=== PATIENT | female | born 1995 | race African-American/Black ===

== ENCOUNTER 2016-11-17 10:56 | Emergency (ER) | payer MEDICAID ==
[~2016-11-17] VITALS: Ht 170.2 cm; Wt 82.0 kg
[~2016-11-17 10:56] MED LIST: LEVO500T15 PO; METF500T; OMEP20CA10 PO
[2016-11-17] MEDS ORDERED: SODIUM CHLORIDE 0.9% 1,000 ML IV ONE (11:25)
[2016-11-17] MEDS ORDERED: ONDANSETRON HCL 4MG/2ML VIAL IV ONE (11:30)
[2016-11-17] MEDS ORDERED: MORPHINE SULFATE 4 MG/ML CPJ (NOT FOR IM USE) IV STA (11:42)
[2016-11-17 11:49] LABS: BASOPHILS % 0.7 % (0.0-2.0); EOSINOPHILS % 0.4 % (0.0-5.0); HEMATOCRIT. 39.2 % (36.0-48.0); HEMOGLOBIN. 12.5 g/dL (12.0-16.0); LYMPHOCYTES % 13.5 % (20.0-50.0); MEAN CORPUSCULAR HEMOGLOBIN 26.3 pg (28.0-32.0); MEAN CORPUSCULAR HGB CONC 31.9 g/dL (31.0-37.0); MEAN CORPUSCULAR VOLUME 82.3 fL (81.0-99.0); MEAN PLATELET VOLUME 8.5 fl (7.4-10.4); MONOCYTES % 4.2 % (2.0-8.0); NEUTROPHILS % 81.2 % (40.0-76.0); PLATELET 368 x1000/uL (130-400); RED BLOOD CELL COUNT 4.77 mill/uL (4.2-5.4); RED CELL DISTRIBUTION WIDTH 14.4 % (11.6-14.6); WHITE BLOOD COUNT 10.4 x1000/uL (4.5-11.0)
[2016-11-17 11:56] LABS: INR 1.1; PROTHROMBIN TIME 11.8 sec
[2016-11-17 12:02] LABS: ALANINE AMINOTRANSFERASE 12 IU/L (13-61); ALBUMIN 3.9 g/dL (3.4-5.0); ANION GAP 16; CALCIUM 9.8 mg/dL (8.5-10.1); CARBON DIOXIDE 23 mEq/L (21-32); CHLORIDE 105 mEq/L (98-107); INDEX HEMOLYSI 1 (1-3); INDEX ICTERIC 1 (1-4); INDEX LIPEMIC 1 (1-3); LIPASE 93 IU/L (73-393); UREA NITROGEN BLOOD 11 mg/dL (7-21); eGFR > 60 mL/min (>60)
[2016-11-17] MEDS ORDERED: INSULIN REGULAR (HUMULIN R) 300UNITS/3ML IV NR (12:30)
[2016-11-17] MEDS ORDERED: METOCLOPRAMIDE HCL 10MG/2ML VIAL IV STA (12:46)
[2016-11-17] MEDS ORDERED: METFORMIN HCL 500MG TABLET PO ONE (14:30)
[2016-11-17] MEDS ORDERED: METFORMIN HCL 500MG TABLET PO NR (15:00)
[2016-11-17 16:15] VITALS: BP 135/80
== END 2016-11-17 19:40 | disposition home or self-care (01) ==
LOC: ER 11:41
DX: K52.9 Noninfective gastroenteritis and colitis, unspecified (principal); E11.9 Type 2 diabetes mellitus without complications; E11.43 Type 2 diabetes mellitus with diabetic autonomic (poly)neuropathy; K31.84 Gastroparesis
CPT/HCPCS: 36415; 80053; 82962; 83690; 85025; 85610; 93005; 96374; 96375; 99285; J1815; J2270; J2405; J2765; J7030; Z7610

== ENCOUNTER 2016-12-15 08:20 | Emergency (ER) | payer MEDICAID ==
[~2016-12-15] VITALS: Ht 170.2 cm; Wt 82.0 kg
[2016-12-15] MEDS ORDERED: ACETAMINOPHEN 325MG TABLET PO STA (09:40)
[2016-12-15] MEDS ORDERED: MAGNESIUM/ALUMINUM HYDROXIDE/SIMETHICONE 30ML UDC PO STA (09:40)
[2016-12-15] MEDS ORDERED: FAMOTIDINE 20MG TABLET PO ONE (09:45)
[2016-12-15 10:14] LABS: BASOPHILS % 0.9 % (0.0-2.0); EOSINOPHILS % 0.7 % (0.0-5.0); HEMATOCRIT. 36.9 % (36.0-48.0); HEMOGLOBIN. 12.2 g/dL (12.0-16.0); LYMPHOCYTES % 37.8 % (20.0-50.0); MEAN CORPUSCULAR HEMOGLOBIN 27.2 pg (28.0-32.0); MEAN CORPUSCULAR VOLUME 82.5 fL (81.0-99.0); MEAN PLATELET VOLUME 8.6 fl (7.4-10.4); MONOCYTES % 4.5 % (2.0-8.0); NEUTROPHILS % 56.1 % (40.0-76.0); PLATELET 330 x1000/uL (130-400); RED BLOOD CELL COUNT 4.48 mill/uL (4.2-5.4); RED CELL DISTRIBUTION WIDTH 14.2 % (11.6-14.6)
[2016-12-15 10:14] LABS: INR 1.1; PROTHROMBIN TIME 11.5 sec
[2016-12-15 10:16] VITALS: BP 122/77
[2016-12-15 10:20] LABS: ALANINE AMINOTRANSFERASE 12 IU/L (13-61); ALBUMIN 3.4 g/dL (3.4-5.0); ANION GAP 11; CALCIUM 8.8 mg/dL (8.5-10.1); CARBON DIOXIDE 25 mEq/L (21-32); CHLORIDE 106 mEq/L (98-107); INDEX HEMOLYSI 2 (1-3); INDEX ICTERIC 1 (1-4); INDEX LIPEMIC 1 (1-3); LIPASE 118 IU/L (73-393); UREA NITROGEN BLOOD 9 mg/dL (7-21); eGFR > 60 mL/min (>60)
[2016-12-15 10:29] LABS: CLARITY URINE CLEAR (CLEAR); COLOR URINE YELLOW (YELLOW); GLUCOSE URINE 3+ (NEGATIVE); KETONES URINE TRACE (NEGATIVE); LEUKOCYTE ESTERASE URINE NEGATIVE (NEGATIVE); NITRITE URINE NEGATIVE (NEGATIVE); OCCULT BLOOD URINE 3+ (NEGATIVE); PH URINE 6.5 (4.5-8.0); PROTEIN URINE NEGATIVE (NEGATIVE); SPECIFIC GRAVITY URINE 1.044 (1.005-1.030); UROBILINOGEN URINE 0.2 E.U./dL (0.2-1.0)
[2016-12-15 10:50] LABS: SQUAMOUS EPITHELIAL CELL URINE FEW /lpf (RARE/1+); WBC URINE 0-2 /hpf (0-2)
[2016-12-15 10:51] LABS: BACTERIA URINE TRACE
[2016-12-15 10:52] LABS: TRICHOMONAS URINE RARE
[2016-12-15 10:56] LABS: *AMPHETAMINES SCREEN URINE NEGATIVE (NEGATIVE); *BARBITURATES SCREEN URINE NEGATIVE (NEGATIVE); *BENZODIAZEPINES SCREEN URINE NEGATIVE (NEGATIVE); *COCAINE SCREEN URINE NEGATIVE (NEGATIVE); ECSTASY MDMA SCREEN URINE NEGATIVE (NEGATIVE); METHADONE URINE SCREEN NEGATIVE (NEGATIVE); PHENCYCLIDINE URINE SCREEN NEGATIVE (NEGATIVE)
[2016-12-15 10:57] LABS: CANNABINOID URINE SCREEN PRESUMTIVE POSITIVE (NEGATIVE); OPIATES URINE SCREEN PRESUMTIVE POSITIVE (NEGATIVE)
== END 2016-12-15 11:10 | disposition left against medical advice (07) ==
LOC: ER 08:20
DX: R10.13 Epigastric pain (principal); E11.9 Type 2 diabetes mellitus without complications; F17.200 Nicotine dependence, unspecified, uncomplicated
CPT/HCPCS: 36415; 80053; 80305; 81001; 83690; 85025; 85610; 93005; 99285

== ENCOUNTER 2017-01-14 09:28 | Emergency (ER) | payer MEDICAID ==
[~2017-01-14] VITALS: Ht 170.2 cm; Wt 79.0 kg
[2017-01-14] MEDS ORDERED: FAMOTIDINE 20MG/2ML VIAL IV STA (10:31)
[2017-01-14] MEDS ORDERED: ONDANSETRON HCL 4MG/2ML VIAL IV STA (10:31)
[2017-01-14] MEDS ORDERED: MORPHINE SULFATE 4 MG/ML CPJ (NOT FOR IM USE) IV STA (10:31)
[2017-01-14] MEDS ORDERED: SODIUM CHLORIDE 0.9% 1,000 ML IV ONE (10:31)
[2017-01-14 10:49] LABS: BASOPHILS % 0.7 % (0.0-2.0); EOSINOPHILS % 0.2 % (0.0-5.0); HEMATOCRIT. 41.3 % (36.0-48.0); HEMOGLOBIN. 13.4 g/dL (12.0-16.0); LYMPHOCYTES % 17.3 % (20.0-50.0); MEAN CORPUSCULAR HEMOGLOBIN 26.7 pg (28.0-32.0); MEAN CORPUSCULAR VOLUME 81.9 fL (81.0-99.0); MEAN PLATELET VOLUME 8.5 fl (7.4-10.4); MONOCYTES % 3.3 % (2.0-8.0); NEUTROPHILS % 78.5 % (40.0-76.0); PLATELET 382 x1000/uL (130-400); RED BLOOD CELL COUNT 5.04 mill/uL (4.2-5.4)
[2017-01-14 10:56] LABS: INR 1.1; PROTHROMBIN TIME 11.7 sec
[2017-01-14 11:03] LABS: CARBON DIOXIDE 23 mEq/L (21-32); CHLORIDE 105 mEq/L (98-107); ETHANOL BLOOD < 10 mg/dL
[2017-01-14 11:05] LABS: TROPONIN I < 0.02 ng/mL (0.00-0.04)
[2017-01-14] MEDS ORDERED: SUCRALFATE 1 G/10 ML UDC PO ONE (12:00)
[2017-01-14] MEDS ORDERED: METOCLOPRAMIDE HCL 10MG TABLET PO ONE (12:30)
[2017-01-14] MEDS ORDERED: HYDROCODONE/ACETAMINOPHEN 5/325MG TABLET PO ONE (13:45)
[2017-01-14 14:50] VITALS: BP 124/76
== END 2017-01-14 14:50 | disposition home or self-care (01) ==
LOC: ER 10:29
DX: E11.43 Type 2 diabetes mellitus with diabetic autonomic (poly)neuropathy (principal); K31.84 Gastroparesis; K92.0 Hematemesis; R00.1 Bradycardia, unspecified; I49.1 Atrial premature depolarization; R03.0 Elevated blood-pressure reading, without diagnosis of hypertension; F12.90 Cannabis use, unspecified, uncomplicated
CPT/HCPCS: 36415; 76705; 80053; 82962; 83690; 83880; 84484; 85025; 85610; 93005; 96361; 96374; 96375; 99285; G0482; J2270; J2405; J3490; J7030; Z7610; J8597

== ENCOUNTER 2017-01-29 09:58 | Emergency (ER) | payer MEDICAID | END 2017-01-29 14:55 | disposition left against medical advice (07) | LOC: ER 14:12 | DX: L02.91 Cutaneous abscess, unspecified (principal); Z53.21 Procedure and treatment not carried out due to patient leaving prior to being seen by health care provider ==

== ENCOUNTER 2017-02-23 20:06 | Emergency (ER) | payer MEDICAID ==
[~2017-02-23] VITALS: Ht 167.6 cm; Wt 78.0 kg
[2017-02-23] MEDS ORDERED: ONDANSETRON HCL 4MG/2ML VIAL IV STA (21:39)
[2017-02-23] MEDS ORDERED: FAMOTIDINE 20MG/2ML VIAL IV STA (21:39)
[2017-02-23] MEDS ORDERED: SODIUM CHLORIDE 0.9% 1,000 ML IV ONE (21:39)
[2017-02-23] MEDS ORDERED: MAGNESIUM/ALUMINUM HYDROXIDE/SIMETHICONE 30ML UDC PO STA (21:39)
[2017-02-23] MEDS ORDERED: HALOPERIDOL LACTATE 5MG/ML VIAL IM ONE (21:45)
[2017-02-23] MEDS ORDERED: MORPHINE SULFATE 2 MG/ML CPJ (NOT FOR IM USE) IV STA (22:23)
[2017-02-23 22:47] LABS: HEMATOCRIT. 42.5 % (36.0-48.0); HEMOGLOBIN. 13.7 g/dL (12.0-16.0); MEAN CORPUSCULAR HEMOGLOBIN 26.6 pg (28.0-32.0); MEAN CORPUSCULAR VOLUME 82.8 fL (81.0-99.0); MEAN PLATELET VOLUME 8.7 fl (7.4-10.4); PLATELET 473 x1000/uL (130-400); RED BLOOD CELL COUNT 5.14 mill/uL (4.2-5.4); RED CELL DISTRIBUTION WIDTH 13.7 % (11.6-14.6)
[2017-02-23 22:53] LABS: CLARITY URINE CLOUDY (CLEAR); COLOR URINE YELLOW (YELLOW); GLUCOSE URINE 3+ (NEGATIVE); KETONES URINE 4+ (NEGATIVE); LEUKOCYTE ESTERASE URINE NEGATIVE (NEGATIVE); NITRITE URINE NEGATIVE (NEGATIVE); OCCULT BLOOD URINE NEGATIVE (NEGATIVE); PH URINE 5.5 (4.5-8.0); PROTEIN URINE TRACE (NEGATIVE); SPECIFIC GRAVITY URINE 1.045 (1.005-1.030); UROBILINOGEN URINE 0.2 E.U./dL (0.2-1.0)
[2017-02-23 22:56] LABS: INR 1.3; PROTHROMBIN TIME 13.1 sec
[2017-02-23 23:04] LABS: CARBON DIOXIDE 22 mEq/L (21-32); CHLORIDE 103 mEq/L (98-107); ETHANOL BLOOD < 10 mg/dL; TROPONIN I < 0.02 ng/mL (0.00-0.04)
[2017-02-23 23:13] LABS: HCG SCREEN NEGATIVE
[2017-02-23 23:19] LABS: PLATELET ESTIMATE INCREASED
[2017-02-23 23:27] LABS: *AMPHETAMINES SCREEN URINE NEGATIVE (NEGATIVE); *BARBITURATES SCREEN URINE NEGATIVE (NEGATIVE); *BENZODIAZEPINES SCREEN URINE NEGATIVE (NEGATIVE); *COCAINE SCREEN URINE NEGATIVE (NEGATIVE); METHADONE URINE SCREEN NEGATIVE (NEGATIVE); OPIATES URINE SCREEN NEGATIVE (NEGATIVE); PHENCYCLIDINE URINE SCREEN NEGATIVE (NEGATIVE)
[2017-02-23 23:29] LABS: CANNABINOID URINE SCREEN PRESUMTIVE POSITIVE (NEGATIVE)
[2017-02-23] MEDS ORDERED: SODIUM CHLORIDE 0.9% 1,000 ML IV NR ×2 (23:38)
[2017-02-23] MEDS ORDERED: CEFTRIAXONE SODIUM 1 G/VIAL IV ONE (23:45)
[2017-02-23] MEDS ORDERED: CEFTRIAXONE 1 G PREMIX 50 ML IV NR (23:45)
[2017-02-24 01:15] VITALS: BP 122/75
== END 2017-02-24 01:24 | disposition home or self-care (01) ==
LOC: ER 21:53
DX: K29.00 Acute gastritis without bleeding (principal); K29.80 Duodenitis without bleeding; R55 Syncope and collapse; E87.2 Acidosis; K21.9 Gastro-esophageal reflux disease without esophagitis; E11.65 Type 2 diabetes mellitus with hyperglycemia; N39.0 Urinary tract infection, site not specified; D47.3 Essential (hemorrhagic) thrombocythemia; F12.10 Cannabis abuse, uncomplicated; Z98.890 Other specified postprocedural states
CPT/HCPCS: 36415; 71010; 74176; 80053; 80305; 81001; 82962; 83605; 83690; 83880; 84484; 84703; 85025; 85610; 93005; 96365; 96372; 96375; 99291; G0482; J0696; J1630; J2270; J2405; J3490; J7030; Z7610

== ENCOUNTER 2017-02-25 01:55 | Emergency (ER) | payer MEDICAID ==
[~2017-02-25] VITALS: Ht 167.6 cm; Wt 77.0 kg
[2017-02-25 01:58] VITALS: BP 145/96
== END 2017-02-25 03:00 | disposition left against medical advice (07) ==
LOC: ER 01:58
DX: R10.9 Unspecified abdominal pain (principal); R11.2 Nausea with vomiting, unspecified; Z53.21 Procedure and treatment not carried out due to patient leaving prior to being seen by health care provider

== ENCOUNTER 2017-03-24 07:39 | Emergency (ER) | payer MEDICAID ==
[~2017-03-24] VITALS: Ht 170.2 cm; Wt 70.0 kg
[2017-03-24] MEDS ORDERED: MORPHINE SULFATE 4 MG/ML CPJ (NOT FOR IM USE) IV STA (10:04)
[2017-03-24] MEDS ORDERED: SODIUM CHLORIDE 0.9% 1,000 ML IV ONE (10:04)
[2017-03-24] MEDS ORDERED: ONDANSETRON HCL 4MG/2ML VIAL IV STA (10:04)
[2017-03-24 10:28] LABS: CLARITY URINE CLOUDY (CLEAR); COLOR URINE YELLOW (YELLOW); GLUCOSE URINE 3+ (NEGATIVE); KETONES URINE 4+ (NEGATIVE); LEUKOCYTE ESTERASE URINE 2+ (NEGATIVE); NITRITE URINE NEGATIVE (NEGATIVE); OCCULT BLOOD URINE 3+ (NEGATIVE); PROTEIN URINE 1+ (NEGATIVE); SPECIFIC GRAVITY URINE 1.033 (1.005-1.030)
[2017-03-24 10:33] LABS: BASOPHILS % 0.6 % (0.0-2.0); EOSINOPHILS % 0.3 % (0.0-5.0); HEMATOCRIT. 44.6 % (36.0-48.0); HEMOGLOBIN. 14.5 g/dL (12.0-16.0); LYMPHOCYTES % 25.5 % (20.0-50.0); MEAN CORPUSCULAR HEMOGLOBIN 26.8 pg (28.0-32.0); MEAN CORPUSCULAR VOLUME 82.2 fL (81.0-99.0); MEAN PLATELET VOLUME 8.2 fl (7.4-10.4); MONOCYTES % 10.1 % (2.0-8.0); NEUTROPHILS % 63.5 % (40.0-76.0); PLATELET 478 x1000/uL (130-400); RED BLOOD CELL COUNT 5.42 mill/uL (4.2-5.4); RED CELL DISTRIBUTION WIDTH 13.7 % (11.6-14.6)
[2017-03-24 10:36] LABS: HCG SCREEN POSITIVE; INR 1.2
[2017-03-24 10:40] LABS: CARBON DIOXIDE 20 mEq/L (21-32); CHLORIDE 99 mEq/L (98-107)
[2017-03-24] MEDS ORDERED: ACETAMINOPHEN 325MG TABLET PO ONE (12:30)
[2017-03-24 15:00] VITALS: BP 120/80
== END 2017-03-24 15:08 | disposition home or self-care (01) ==
LOC: ER 07:39
DX: R10.13 Epigastric pain (principal); N93.9 Abnormal uterine and vaginal bleeding, unspecified; K21.9 Gastro-esophageal reflux disease without esophagitis; E11.9 Type 2 diabetes mellitus without complications; Z87.19 Personal history of other diseases of the digestive system; Z98.890 Other specified postprocedural states
CPT/HCPCS: 36415; 76705; 76801; 80053; 81001; 83690; 84702; 84703; 85025; 85610; 96360; 96361; 99285; J7030; Z7610

== ENCOUNTER 2017-11-01 22:25 | Emergency (ER) | payer MEDICAID ==
[~2017-11-01] VITALS: Ht 170.2 cm; Wt 76.0 kg
[~2017-11-01 22:25] MED LIST changes: -LEVO500T15 PO; -METF500T; +METO-293 PO; -OMEP20CA10 PO; +RANI-563 PO; +SITA1TAB6 PO
[2017-11-01] MEDS ORDERED: MORPHINE SULFATE 4 MG/ML CPJ (NOT FOR IM USE) IV STA (23:18)
[2017-11-01] MEDS ORDERED: SODIUM CHLORIDE 0.9% 1,000 ML IV ONE (23:18)
[2017-11-01] MEDS ORDERED: ONDANSETRON HCL 4MG/2ML VIAL IV STA (23:18)
[2017-11-01] MEDS ORDERED: METOCLOPRAMIDE HCL 10MG/2ML VIAL IV STA (23:41)
[2017-11-01 23:43] LABS: BASOPHILS % 0.6 % (0.0-2.0); EOSINOPHILS % 0.2 % (0.0-5.0); HEMATOCRIT. 40.3 % (36.0-48.0); LYMPHOCYTES % 15.7 % (20.0-50.0); MEAN CORPUSCULAR HEMOGLOBIN 26.3 pg (28.0-32.0); MEAN CORPUSCULAR VOLUME 81.8 fL (81.0-99.0); MEAN PLATELET VOLUME 8.6 fl (7.4-10.4); MONOCYTES % 5.4 % (2.0-8.0); NEUTROPHILS % 78.1 % (40.0-76.0); PLATELET 392 x1000/uL (130-400); RED BLOOD CELL COUNT 4.93 mill/uL (4.2-5.4); RED CELL DISTRIBUTION WIDTH 14.2 % (11.6-14.6)
[2017-11-01 23:52] LABS: INR 1.1; PROTHROMBIN TIME 11.3 sec (9.4-11.6)
[2017-11-01 23:55] LABS: CHLORIDE 101 mEq/L (98-107)
[2017-11-02 00:22] LABS: CLARITY URINE CLOUDY (CLEAR); COLOR URINE YELLOW (YELLOW); KETONES URINE 3+ (NEGATIVE); LEUKOCYTE ESTERASE URINE TRACE (NEGATIVE); NITRITE URINE POSITIVE (NEGATIVE); OCCULT BLOOD URINE NEGATIVE (NEGATIVE); PH URINE 5.5 (4.5-8.0); PROTEIN URINE NEGATIVE (NEGATIVE); UROBILINOGEN URINE 0.2 E.U./dL (0.2-1.0)
[2017-11-02] MEDS ORDERED: METOCLOPRAMIDE HCL 10MG/2ML VIAL IV STA (05:01)
[2017-11-02] MEDS ORDERED: ONDANSETRON HCL 4MG/2ML VIAL IV STA (05:34)
[2017-11-02] MEDS ORDERED: MORPHINE SULFATE 4 MG/ML CPJ (NOT FOR IM USE) IV STA (05:34)
[2017-11-02 05:45] VITALS: BP 113/67
== END 2017-11-02 06:20 | disposition home or self-care (01) ==
LOC: ER 23:35
DX: N39.0 Urinary tract infection, site not specified (principal); K21.9 Gastro-esophageal reflux disease without esophagitis; E11.9 Type 2 diabetes mellitus without complications; F12.10 Cannabis abuse, uncomplicated
CPT/HCPCS: 36415; 71045; 80053; 81003; 81025; 82962; 83690; 85025; 85610; 87077; 87086; 96361; 96374; 96375; 96376; 99285; J2270; J2405; J2765; J7030; Z7610

== ENCOUNTER 2017-11-02 21:07 | Emergency (ER) | payer MEDICAID ==
[~2017-11-02] VITALS: Ht 170.2 cm; Wt 76.0 kg
[2017-11-02] MEDS ORDERED: SODIUM CHLORIDE 0.9% 1,000 ML IV ONE (21:45)
[2017-11-02] MEDS ORDERED: KETOROLAC 30MG/ML VIAL IV ONE (21:45)
[2017-11-02] MEDS ORDERED: ONDANSETRON HCL 4MG/2ML VIAL IV ONE (21:45)
[2017-11-02 22:45] LABS: CLARITY URINE CLEAR (CLEAR); COLOR URINE YELLOW (YELLOW); KETONES URINE 4+ (NEGATIVE); LEUKOCYTE ESTERASE URINE NEGATIVE (NEGATIVE); NITRITE URINE NEGATIVE (NEGATIVE); OCCULT BLOOD URINE TRACE (NEGATIVE); PROTEIN URINE 2+ (NEGATIVE); SPECIFIC GRAVITY URINE 1.038 (1.005-1.030); UROBILINOGEN URINE 0.2 E.U./dL (0.2-1.0)
[2017-11-02 22:53] LABS: BASOPHILS % 0.5 % (0.0-2.0); EOSINOPHILS % 0.4 % (0.0-5.0); HEMATOCRIT. 44.9 % (36.0-48.0); HEMOGLOBIN. 14.4 g/dL (12.0-16.0); MEAN CORPUSCULAR HEMOGLOBIN 26.7 pg (28.0-32.0); MEAN CORPUSCULAR VOLUME 83.2 fL (81.0-99.0); MEAN PLATELET VOLUME 8.7 fl (7.4-10.4); MONOCYTES % 5.2 % (2.0-8.0); NEUTROPHILS % 85.9 % (40.0-76.0); PLATELET 417 x1000/uL (130-400); RED CELL DISTRIBUTION WIDTH 14.5 % (11.6-14.6)
[2017-11-02 23:05] LABS: CHLORIDE 104 mEq/L (98-107)
[2017-11-03] MEDS ORDERED: HYDROCODONE/ACETAMINOPHEN 5/325MG TABLET PO ONE (03:15)
[2017-11-03] MEDS ORDERED: SODIUM CHLORIDE 0.9% 100 ML IV ONE (05:00)
[2017-11-03] MEDS ORDERED: ONDANSETRON HCL 4MG/2ML VIAL IV ONE (06:15)
[2017-11-03] MEDS ORDERED: SODIUM CHLORIDE 0.9% 1,000 ML IV ONE (06:15)
[2017-11-03] MEDS ORDERED: MORPHINE SULFATE 4 MG/ML CPJ (NOT FOR IM USE) IV ONE (07:15)
[2017-11-03 09:04] VITALS: BP 112/59
== END 2017-11-03 09:12 | disposition home or self-care (01) ==
LOC: ER 21:07
DX: K29.70 Gastritis, unspecified, without bleeding (principal); K21.9 Gastro-esophageal reflux disease without esophagitis; E11.9 Type 2 diabetes mellitus without complications
CPT/HCPCS: 36415; 80048; 81003; 81025; 82962; 85025; 96361; 96374; 96375; 96376; 99285; J1885; J2270; J2405; J7030; Z7610; J7050

== ENCOUNTER 2018-01-01 18:41 | Emergency (ER) | payer MEDICAID ==
[~2018-01-01] VITALS: Ht 170.2 cm; Wt 65.0 kg
[2018-01-02] MEDS ORDERED: ONDANSETRON HCL 4MG/2ML VIAL IV STA (00:06)
[2018-01-02] MEDS ORDERED: MORPHINE SULFATE 4 MG/ML CPJ (NOT FOR IM USE) IV STA (00:06)
[2018-01-02] MEDS ORDERED: SODIUM CHLORIDE 0.9% 1,000 ML IV ONE (00:06)
[2018-01-02 00:51] LABS: BASOPHILS % 0.3 % (0.0-2.0); CHLORIDE 103 mEq/L (98-107); HEMATOCRIT. 42.6 % (36.0-48.0); HEMOGLOBIN. 13.8 g/dL (12.0-16.0); LYMPHOCYTES % 11.9 % (20.0-50.0); MEAN CORPUSCULAR VOLUME 83.3 fL (81.0-99.0); MEAN PLATELET VOLUME 8.7 fl (7.4-10.4); MONOCYTES % 5.5 % (2.0-8.0); NEUTROPHILS % 82.3 % (40.0-76.0); PLATELET 436 x1000/uL (130-400); RED BLOOD CELL COUNT 5.11 mill/uL (4.2-5.4); RED CELL DISTRIBUTION WIDTH 14.7 % (11.6-14.6)
[2018-01-02 06:00] VITALS: BP 115/56
== END 2018-01-02 06:20 | disposition home or self-care (01) ==
LOC: ER 18:46
DX: E11.43 Type 2 diabetes mellitus with diabetic autonomic (poly)neuropathy (principal); K31.84 Gastroparesis; K21.9 Gastro-esophageal reflux disease without esophagitis; F12.10 Cannabis abuse, uncomplicated; Z98.890 Other specified postprocedural states
CPT/HCPCS: 36415; 80053; 81025; 82962; 83690; 85025; 96361; 96374; 96375; 99284; J2270; J2405; J7030; J7040; Z7610

== ENCOUNTER 2018-01-02 07:06 | Emergency (ER) | payer MEDICAID ==
[~2018-01-02] VITALS: Ht 170.2 cm; Wt 80.0 kg
[2018-01-02] MEDS ORDERED: METOCLOPRAMIDE HCL 10MG/2ML VIAL IV ONE (08:15)
[2018-01-02] MEDS ORDERED: MORPHINE SULFATE 4 MG/ML CPJ (NOT FOR IM USE) IV STA (08:15)
[2018-01-02] MEDS ORDERED: SODIUM CHLORIDE 0.9% 1,000 ML IV ONE (08:15)
[2018-01-02 08:29] LABS: BASOPHILS % 1.2 % (0.0-2.0); EOSINOPHILS % 0.2 % (0.0-5.0); HEMATOCRIT. 43.4 % (36.0-48.0); HEMOGLOBIN. 14.1 g/dL (12.0-16.0); LYMPHOCYTES % 14.7 % (20.0-50.0); MEAN CORPUSCULAR HEMOGLOBIN 26.8 pg (28.0-32.0); MEAN CORPUSCULAR VOLUME 82.7 fL (81.0-99.0); MEAN PLATELET VOLUME 8.3 fl (7.4-10.4); MONOCYTES % 7.4 % (2.0-8.0); NEUTROPHILS % 76.5 % (40.0-76.0); PLATELET 400 x1000/uL (130-400); RED BLOOD CELL COUNT 5.25 mill/uL (4.2-5.4); RED CELL DISTRIBUTION WIDTH 14.7 % (11.6-14.6)
[2018-01-02 08:36] LABS: CHLORIDE 103 mEq/L (98-107)
[2018-01-02 09:22] LABS: KETONES URINE 3+ (NEGATIVE); LEUKOCYTE ESTERASE URINE 1+ (NEGATIVE); NITRITE URINE NEGATIVE (NEGATIVE); OCCULT BLOOD URINE NEGATIVE (NEGATIVE); PROTEIN URINE 1+ (NEGATIVE); SPECIFIC GRAVITY URINE 1.047 (1.005-1.030); UROBILINOGEN URINE 0.2 E.U./dL (0.2-1.0)
[2018-01-02 09:25] LABS: CLARITY URINE HAZY (CLEAR); COLOR URINE YELLOW (YELLOW)
[2018-01-02] MEDS ORDERED: CEFTRIAXONE 1 G PREMIX 50 ML IV ONE (10:30)
[2018-01-02] MEDS ORDERED: METRONIDAZOLE 500MG TABLET PO ONE (11:30)
[2018-01-02 11:49] VITALS: BP 121/68
== END 2018-01-02 11:51 | disposition home or self-care (01) ==
LOC: ER 07:49
DX: N39.0 Urinary tract infection, site not specified (principal); B37.9 Candidiasis, unspecified; A59.9 Trichomoniasis, unspecified; E11.65 Type 2 diabetes mellitus with hyperglycemia; E11.43 Type 2 diabetes mellitus with diabetic autonomic (poly)neuropathy; R17 Unspecified jaundice; F12.10 Cannabis abuse, uncomplicated; Z98.890 Other specified postprocedural states
CPT/HCPCS: 36415; 76705; 80053; 81003; 81025; 82962; 83690; 85025; 87086; 87106; 96361; 96365; 96375; 99285; J0696; J2270; J2765; J7030; Z7610

== ENCOUNTER 2018-04-01 13:50 | Inpatient (IN) | payer MEDICAID ==
[~2018-04-01] VITALS: Ht 175.3 cm; Wt 73.5 kg
[2018-04-01] MEDS ORDERED: SODIUM CHLORIDE 0.9% 1,000 ML IV ONE (15:18)
[2018-04-01 15:34] LABS: BASOPHILS % 0.8 % (0.0-2.0); HEMATOCRIT. 43.6 % (36.0-48.0); HEMOGLOBIN. 14.1 g/dL (12.0-16.0); MEAN CORPUSCULAR HEMOGLOBIN 27.1 pg (28.0-32.0); MEAN CORPUSCULAR VOLUME 83.4 fL (81.0-99.0); MEAN PLATELET VOLUME 8.8 fl (7.4-10.4); MONOCYTES % 4.1 % (2.0-8.0); NEUTROPHILS % 84.1 % (40.0-76.0); PLATELET 419 x1000/uL (130-400); RED BLOOD CELL COUNT 5.22 mill/uL (4.2-5.4); RED CELL DISTRIBUTION WIDTH 14.3 % (11.6-14.6)
[2018-04-01 15:39] LABS: CHLORIDE 103 mEq/L (98-107)
[2018-04-01 15:41] LABS: INR 1.2; PROTHROMBIN TIME 11.8 sec (9.1-11.1)
[2018-04-01] MEDS ORDERED: METOCLOPRAMIDE HCL 10MG/2ML VIAL IV ONE (15:49)
[2018-04-01] MEDS ORDERED: KETOROLAC 15MG/ML VIAL IV ONE (16:30)
[2018-04-01] MEDS ORDERED: MORPHINE SULFATE 2 MG/ML CPJ (NOT FOR IM USE) IV ONE (17:45)
[2018-04-01] MEDS ORDERED: MAGNESIUM/ALUMINUM HYDROXIDE/SIMETHICONE 30ML UDC PO PRN (18:15)
[2018-04-01] MEDS ORDERED: ACETAMINOPHEN 325MG TABLET PO PRN (18:15)
[2018-04-01] MEDS ORDERED: ACETAMINOPHEN 650MG/20.3ML UDC GT PRN (18:15)
[2018-04-01] MEDS ORDERED: LORAZEPAM 0.5MG TABLET PO PRN (18:15)
[2018-04-01] MEDS ORDERED: ACETAMINOPHEN 650MG SUPP PR PRN (18:15)
[2018-04-01] MEDS ORDERED: ONDANSETRON HCL 4MG/2ML VIAL IV PRN (18:15)
[2018-04-01] MEDS ORDERED: MORPHINE SULFATE 4 MG/ML CPJ (NOT FOR IM USE) IV PRN (18:30)
[2018-04-01 20:02] LABS: HCG SCREEN NEGATIVE
[2018-04-01 23:10] VITALS: BP 100/63
[2018-04-01] MEDS ORDERED: METO-293 MT (23:35)
[2018-04-01] MEDS ORDERED: METF10004 MT (23:35)
[2018-04-02 00:07] LABS: CREATINE KINASE 63 IU/L (26-192)
[2018-04-02 00:08] LABS: CREATINE KINASE MB FRACTION < 1.0 ng/mL (0.5-3.6)
[2018-04-02] MEDS ORDERED: DEXTROSE 50% WATER 50ML SYRINGE IV PRN (00:15)
[2018-04-02 04:00] VITALS: BP 96/45
[2018-04-02] MEDS: BLOOD SUGAR DIAGNOSTIC STRIP TEST SCH ×3 (06:11→17:14)
[2018-04-02] MEDS: INSULIN LISPRO 100 UNITS/ML SUBCUT SCH ×3 (06:26→17:14)
[2018-04-02 07:17] LABS: EOSINOPHILS % 0.2 % (0.0-5.0); HEMATOCRIT. 36.6 % (36.0-48.0); HEMOGLOBIN. 12.2 g/dL (12.0-16.0); LYMPHOCYTES % 40.3 % (20.0-50.0); MEAN CORPUSCULAR HEMOGLOBIN 27.6 pg (28.0-32.0); MEAN CORPUSCULAR VOLUME 82.7 fL (81.0-99.0); MEAN PLATELET VOLUME 8.7 fl (7.4-10.4); MONOCYTES % 9.6 % (2.0-8.0); NEUTROPHILS % 48.9 % (40.0-76.0); PLATELET 333 x1000/uL (130-400); RED BLOOD CELL COUNT 4.43 mill/uL (4.2-5.4); RED CELL DISTRIBUTION WIDTH 13.7 % (11.6-14.6)
[2018-04-02 07:30] LABS: CHLORIDE 105 mEq/L (98-107)
[2018-04-02 07:43] LABS: LDL CHOLESTEROL 90 mg/dL (5-100)
[2018-04-02 07:44] LABS: CREATINE KINASE 45 IU/L (26-192); CREATINE KINASE MB FRACTION < 1.0 ng/mL (0.5-3.6)
[2018-04-02 07:45] LABS: T4 FREE 1.13 ng/dL (0.76-1.46)
[2018-04-02 07:46] LABS: HDL CHOLESTEROL 37 mg/dL (40-59)
[2018-04-02 08:30] VITALS: BP 103/63
[2018-04-02 12:11] VITALS: BP 97/59
[2018-04-02 16:30] VITALS: BP 95/63
[2018-04-02 19:27] VITALS: BP 98/56
[2018-04-02 20:00] VITALS: BP 98/56
== END 2018-04-02 20:30 | disposition home or self-care (01) | DRG 48 ==
LOC: ER 13:50 → 8WST 17:35 → ENRESERV 21:38 → EDBEDREQ 23:08
PROVIDERS: ADMIT Internal Medicine; ATTEND Internal Medicine
DX: E11.43 Type 2 diabetes mellitus with diabetic autonomic (poly)neuropathy (principal); R17 Unspecified jaundice; K31.84 Gastroparesis; R00.1 Bradycardia, unspecified; F17.210 Nicotine dependence, cigarettes, uncomplicated; J45.909 Unspecified asthma, uncomplicated; Z79.84 Long term (current) use of oral hypoglycemic drugs; Z98.891 History of uterine scar from previous surgery; Z79.899 Other long term (current) drug therapy
CPT/HCPCS: 36415; 71045; 74018; 76705; 80053; 80061; 82550; 82553; 82962; 83036; 83690; 84439; 84443; 84481; 84484; 84703; 85025; 85610; 93005; 96361; 96374; 96375; 99285; J1815; J1885; J2270; J2765; J7030

== ENCOUNTER 2018-07-10 11:26 | Emergency (ER) | payer MEDICAID ==
[~2018-07-10 11:26] MED LIST changes: +METF-416 MT; +METO-293 MT; -METO-293 PO; -RANI-563 PO; -SITA1TAB6 PO
== END 2018-07-10 15:30 | disposition left against medical advice (07) ==
LOC: ER 11:26
DX: Z53.21 Procedure and treatment not carried out due to patient leaving prior to being seen by health care provider (principal)

== ENCOUNTER 2018-07-12 12:50 | Inpatient (IN) | payer MEDICAID ==
[~2018-07-12] VITALS: Ht 170.2 cm; Wt 75.7 kg
[2018-07-12] VITALS (17 sets, daily range): BP systolic 81–131; BP diastolic 39–75
[2018-07-12] MEDS ORDERED: INSULIN (13:19)
[2018-07-12] MEDS ORDERED: MORPHINE SULFATE 4 MG/ML CPJ (NOT FOR IM USE) IV STA (13:53)
[2018-07-12] MEDS ORDERED: ONDANSETRON HCL 4MG/2ML INJ IV STA (13:53)
[2018-07-12] MEDS ORDERED: SODIUM CHLORIDE 0.9% 1,000 ML IV ONE (13:53)
[2018-07-12] MEDS ORDERED: BACITRACIN ZINC OINT UDPKT TOP ONE (14:00)
[2018-07-12] MEDS ORDERED: INSULIN REGULAR (HUMULIN R) UD 100 UNITS/ML SYR SUBCUT ONE (14:00)
[2018-07-12] MEDS ORDERED: LIDOCAINE 1%/EPI 1:100,000 10 ML VIAL IJ ONE (14:00)
[2018-07-12] MEDS ORDERED: MORPHINE SULFATE 2 MG/ML CPJ (NOT FOR IM USE) IV STA (14:06)
[2018-07-12] MEDS ORDERED: LIDOCAINE HCL/EPINEPHRINE 1%-EPI 1:100,000 20 ML VIAL INFIL ONE (14:15)
[2018-07-12 14:22] LABS: CHLORIDE 98 mEq/L (98-107)
[2018-07-12 14:27] LABS: CLARITY URINE CLOUDY (CLEAR); COLOR URINE YELLOW (YELLOW); KETONES URINE 4+ (NEGATIVE); LEUKOCYTE ESTERASE URINE NEGATIVE (NEGATIVE); NITRITE URINE NEGATIVE (NEGATIVE); OCCULT BLOOD URINE 1+ (NEGATIVE); PROTEIN URINE 2+ (NEGATIVE); SPECIFIC GRAVITY URINE 1.029 (1.005-1.030); UROBILINOGEN URINE 0.2 E.U./dL (0.2-1.0)
[2018-07-12 14:30] LABS: HCG SCREEN NEGATIVE
[2018-07-12 14:33] LABS: HEMATOCRIT. 46.6 % (36.0-48.0); HEMOGLOBIN. 14.5 g/dL (12.0-16.0); MEAN CORPUSCULAR HEMOGLOBIN 26.9 pg (28.0-32.0); MEAN CORPUSCULAR VOLUME 86.4 fL (81.0-99.0); MEAN PLATELET VOLUME 8.8 fl (7.4-10.4); PLATELET 623 x1000/uL (130-400); RED BLOOD CELL COUNT 5.39 mill/uL (4.2-5.4); RED CELL DISTRIBUTION WIDTH 13.4 % (11.6-14.6)
[2018-07-12 14:35] LABS: BETA HYDROXYBUTYRATE 7.5 mMol/L (0.0-0.3)
[2018-07-12] MEDS ORDERED: INSULIN REGULAR (DRIP) 100 UNITS in SODIUM CHLORIDE 0.9% 100 ML IV ONE (14:53)
[2018-07-12] MEDS ORDERED: PIPERACILLIN/TAZ 3.375G PREMIX 50 ML IV ONE (15:00)
[2018-07-12] MEDS ORDERED: SODIUM CHLORIDE 0.9% 1000ML BAG (SEPSIS BOLUS) IV ONE (15:00)
[2018-07-12] MEDS ORDERED: FLUCONAZOLE 100MG TABLET PO ONE (15:00)
[2018-07-12] MEDS ORDERED: VANCOMYCIN 1 G PREMIX 200 ML IV ONE (15:00)
[2018-07-12] MEDS ORDERED: METRONIDAZOLE 500MG TABLET PO ONE (15:00)
[2018-07-12] MEDS ORDERED: POTASSIUM CHLORIDE 20MEQ TABLET SR PO ONE (15:00)
[2018-07-12] MEDS ORDERED: INSULIN REGULAR (DRIP) 100 UNITS in SODIUM CHLORIDE 0.9% 99 ML IV NR (15:15)
[2018-07-12] MEDS: INSULIN REGULAR (HUMULIN R) 300UNITS/3ML SUBCUT NR ×2 (15:17→15:43)
[2018-07-12 15:34] LABS: BG BASE EXCESS -17.3 mmol/L (-2.0-2.0); BG CARBOXYHEMOGLOBIN 0.4 % (0.5-1.5); BG DEOXYHEMOGLOBIN 2.1 % (0.0-5.0); BG FRACTION INSPIRED OXYGEN 21; BG HCO3 ACT 7.5 mmol/L (22.0-26.0); BG METHEMOGLOBIN 0.3 % (0.0-1.5); BG OXYGEN SATURATION 97.9 % (92.0-98.5); BG OXYHEMOGLOBIN 97.2 % (94.0-97.0); BG PCO2 17.8 mmHg (35.0-45.0); BG PH 7.244 (7.350-7.450); BG PO2 110.8 mmHg (75.0-100.0); BG SAMPLE SITE RIGHT RADIAL; BG TOTAL HEMOGLOBIN 14.3 g/dL (12.0-18.0); BG VENT MODE ROOM AIR
[2018-07-12] MEDS ORDERED: MORPHINE SULFATE 2 MG/ML CPJ (NOT FOR IM USE) IV NR (15:44)
[2018-07-12] MEDS ORDERED: MORPHINE SULFATE 4 MG/ML CPJ (NOT FOR IM USE) IV ONE (15:45)
[2018-07-12 16:20] LABS: CHLORIDE 100 mEq/L (98-107)
[2018-07-12 16:28] LABS: PHOSPHORUS 3.8 mg/dL (2.5-4.9)
[2018-07-12] MEDS ORDERED: ACETAMINOPHEN 650MG SUPP PR PRN (18:15)
[2018-07-12] MEDS ORDERED: CLONIDINE 0.1MG TABLET PO PRN (18:15)
[2018-07-12] MEDS ORDERED: IPRATROPIUM/ALBUTEROL 0.5-3(2.5)MG/3ML NEB INH PRN (18:15)
[2018-07-12] MEDS ORDERED: DOCUSATE SODIUM 100MG CAPSULE PO PRN (18:15)
[2018-07-12] MEDS ORDERED: MAGNESIUM/ALUMINUM HYDROXIDE/SIMETHICONE 30ML UDC PO PRN (18:15)
[2018-07-12] MEDS ORDERED: ACETAMINOPHEN 325MG TABLET PO PRN (18:15)
[2018-07-12] MEDS ORDERED: HYDROCODONE/ACETAMINOPHEN 5/325MG TABLET PO PRN (18:15)
[2018-07-12] MEDS ORDERED: HYDROCODONE/ACETAMINOPHEN 10/325MG TABLET PO PRN (18:15)
[2018-07-12] MEDS ORDERED: ACETAMINOPHEN 650MG/20.3ML UDC GT PRN (18:15)
[2018-07-12] MEDS ORDERED: DEXTROSE 50% WATER 50ML SYRINGE IV PRN ×2 (18:15)
[2018-07-12] MEDS: MORPHINE SULFATE 4 MG/ML CPJ (NOT FOR IM USE) IV PRN ×2 (18:39→22:26)
[2018-07-12] MEDS: BLOOD SUGAR DIAGNOSTIC STRIP TEST SCH ×5 (18:40→23:49)
[2018-07-12 18:43] LABS: PLATELET ESTIMATE INCREAS
[2018-07-12] MEDS ORDERED: SODIUM CHLORIDE 0.45% 1,000 ML IV SCH (18:45)
[2018-07-12] MEDS ORDERED: INSULIN REGULAR (DRIP) 100 UNITS in SODIUM CHLORIDE 0.9% 100 ML IV SCH (19:00)
[2018-07-12] MEDS: DEXT 5%/0.9% NACL 1,000 ML IV SCH (19:17)
[2018-07-12 19:45] LABS: CHLORIDE 113 mEq/L (98-107)
[2018-07-12] MEDS: ENOXAPARIN 40MG/0.4ML SYR SUBCUT SCH (20:26)
[2018-07-12] MEDS: PIPERACILLIN/TAZ 2.25G PREMIX 50 ML IV SCH (20:27)
[2018-07-12] MEDS ORDERED: NA PHOS,M-B/NA PHOS,DI-BA ENEMA 118ML PR PRN (21:00)
[2018-07-12] MEDS: SODIUM CHLORIDE 0.9% INJ 3ML FLUSH IVF SCH (21:03)
[2018-07-12 23:31] LABS: CHLORIDE 116 mEq/L (98-107)
[2018-07-12 23:41] LABS: CREATINE KINASE 63 IU/L (26-192)
[2018-07-12 23:43] LABS: CREATINE KINASE MB FRACTION < 1.0 ng/mL (0.5-3.6)
[2018-07-13] VITALS (35 sets, daily range): BP systolic 94–155; BP diastolic 58–100
[2018-07-13] MEDS: BLOOD SUGAR DIAGNOSTIC STRIP TEST SCH ×14 (00:04→20:31)
[2018-07-13] MEDS: DEXT 5%/0.9% NACL 1,000 ML IV SCH ×2 (00:05→05:23)
[2018-07-13] MEDS: ONDANSETRON HCL 4MG/2ML INJ IV PRN ×2 (00:23→12:42)
[2018-07-13] MEDS: PIPERACILLIN/TAZ 2.25G PREMIX 50 ML IV SCH ×3 (01:51→13:23)
[2018-07-13] MEDS: DIPHENHYDRAMINE 50MG/ML VIAL IV PRN ×3 (01:51→16:37)
[2018-07-13] MEDS: SODIUM CHLORIDE 0.9% INJ 3ML FLUSH IVF SCH ×3 (05:23→20:43)
[2018-07-13 06:10] LABS: HEMATOCRIT. 36.6 % (36.0-48.0); HEMOGLOBIN. 11.8 g/dL (12.0-16.0); MEAN CORPUSCULAR VOLUME 83.6 fL (81.0-99.0); MEAN PLATELET VOLUME 8.3 fl (7.4-10.4); PLATELET 405 x1000/uL (130-400); RED BLOOD CELL COUNT 4.38 mill/uL (4.2-5.4); RED CELL DISTRIBUTION WIDTH 13.4 % (11.6-14.6)
[2018-07-13 06:17] LABS: CHLORIDE 113 mEq/L (98-107)
[2018-07-13 06:25] LABS: CREATINE KINASE MB FRACTION < 1.0 ng/mL (0.5-3.6)
[2018-07-13 06:26] LABS: CREATINE KINASE 79 IU/L (26-192); LDL CHOLESTEROL 77 mg/dL (5-100)
[2018-07-13 06:27] LABS: HDL CHOLESTEROL 50 mg/dL (40-59)
[2018-07-13] MEDS: MORPHINE SULFATE 4 MG/ML CPJ (NOT FOR IM USE) IV PRN ×2 (06:43→23:33)
[2018-07-13 07:33] LABS: PLATELET ESTIMATE NORMAL
[2018-07-13] MEDS ORDERED: POTASSIUM PHOS,M-BASIC-D-BASIC 20 MMOL in DEXT 5% WATER 243.3333 ML IV SCH (10:00)
[2018-07-13 11:27] LABS: *BENZODIAZEPINES SCREEN URINE NEGATIVE (NEGATIVE); *COCAINE SCREEN URINE NEGATIVE (NEGATIVE); METHADONE URINE SCREEN NEGATIVE (NEGATIVE); PHENCYCLIDINE URINE SCREEN NEGATIVE (NEGATIVE)
[2018-07-13 11:29] LABS: *AMPHETAMINES SCREEN URINE NEGATIVE (NEGATIVE)
[2018-07-13 11:35] LABS: *BARBITURATES SCREEN URINE NEGATIVE (NEGATIVE); OPIATES URINE SCREEN NEGATIVE (NEGATIVE)
[2018-07-13 11:48] LABS: CANNABINOID URINE SCREEN PRESUMTIVE POSITIVE (NEGATIVE)
[2018-07-13] MEDS ORDERED: DEXTROSE 50% WATER 50ML SYRINGE IV PRN (12:30)
[2018-07-13] MEDS: INSULIN LISPRO 100 UNITS/ML SUBCUT SCH ×3 (12:45→20:44)
[2018-07-13] MEDS: SODIUM CHLORIDE 0.45% 1,000 ML IV SCH ×2 (12:48→23:21)
[2018-07-13] MEDS ORDERED: INSULIN GLARGINE UD 100 UNITS/ML SYR SUBCUT NR (13:30)
[2018-07-13] MEDS ORDERED: POTASSIUM PHOS,M-BASIC-D-BASIC 20 MMOL in DEXT 5% WATER 243.3333 ML IV NR (14:00)
[2018-07-13] MEDS ORDERED: FLUCONAZOLE 150MG TABLET PO NR (14:00)
[2018-07-13] MEDS ORDERED: METOCLOPRAMIDE HCL 10MG/2ML VIAL IV PRN (15:45)
[2018-07-13] MEDS: METOCLOPRAMIDE HCL 10MG/2ML VIAL IV SCH ×3 (16:36→23:21)
[2018-07-13] MEDS: PIPERACILLIN/TAZ 3.375G PREMIX 50 ML IV SCH (20:42)
[2018-07-13] MEDS: ENOXAPARIN 40MG/0.4ML SYR SUBCUT SCH (20:43)
[2018-07-13 21:04] LABS: CHLORIDE 107 mEq/L (98-107)
[2018-07-13 21:11] LABS: PHOSPHORUS 1.4 mg/dL (2.5-4.9)
[2018-07-13] MEDS: INSULIN GLARGINE UD 100 UNITS/ML SYR SUBCUT SCH (22:08)
[2018-07-13] MEDS ORDERED: POTASSIUM CHLORIDE 20MEQ TABLET SR PO SCH (22:15)
[2018-07-14] VITALS (19 sets, daily range): BP systolic 83–141; BP diastolic 38–90
[2018-07-14] MEDS ORDERED: POTASSIUM PHOS,M-BASIC-D-BASIC 30 MMOL in SODIUM CHLORIDE 0.9% 500 ML IV SCH ×2
[2018-07-14] MEDS: PIPERACILLIN/TAZ 3.375G PREMIX 50 ML IV SCH ×3 (01:53→13:37)
[2018-07-14] MEDS: SODIUM CHLORIDE 0.9% INJ 3ML FLUSH IVF SCH ×2 (05:23→14:00)
[2018-07-14] MEDS: BLOOD SUGAR DIAGNOSTIC STRIP TEST SCH ×2 (05:33→11:52)
[2018-07-14] MEDS: METOCLOPRAMIDE HCL 10MG/2ML VIAL IV SCH ×2 (05:36→11:52)
[2018-07-14] MEDS: INSULIN LISPRO 100 UNITS/ML SUBCUT SCH ×2 (05:38→12:00)
[2018-07-14] MEDS: MORPHINE SULFATE 4 MG/ML CPJ (NOT FOR IM USE) IV PRN ×2 (05:53→11:53)
[2018-07-14] MEDS: DIPHENHYDRAMINE 50MG/ML VIAL IV PRN ×2 (08:51→13:40)
[2018-07-14] MEDS: SODIUM CHLORIDE 0.45% 1,000 ML IV SCH (08:52)
[2018-07-14 09:03] LABS: BASOPHILS % 0.1 % (0.0-2.0); EOSINOPHILS % 0.4 % (0.0-5.0); HEMATOCRIT. 34.1 % (36.0-48.0); HEMOGLOBIN. 10.8 g/dL (12.0-16.0); LYMPHOCYTES % 25.2 % (20.0-50.0); MEAN CORPUSCULAR HEMOGLOBIN 26.2 pg (28.0-32.0); MEAN CORPUSCULAR VOLUME 83.2 fL (81.0-99.0); MEAN PLATELET VOLUME 7.9 fl (7.4-10.4); MONOCYTES % 12.2 % (2.0-8.0); NEUTROPHILS % 62.1 % (40.0-76.0); PLATELET 382 x1000/uL (130-400)
[2018-07-14 09:23] LABS: CHLORIDE 102 mEq/L (98-107)
[2018-07-14] MEDS: INSULIN GLARGINE UD 100 UNITS/ML SYR SUBCUT SCH (10:48)
[2018-07-14] MEDS ORDERED: SODIUM CHLORIDE 0.9% 1,000 ML IV SCH (11:15)
[2018-07-14] MEDS ORDERED: SODIUM CHLORIDE 0.9% IV NR (13:00)
[2018-07-14] MEDS ORDERED: POTASSIUM PHOS M BASIC D BASIC IV NR (13:00)
== END 2018-07-14 17:45 | disposition left against medical advice (07) | DRG 720 ==
LOC: ER 14:23 → MICUNO 15:03 → EDBEDREQ 15:04 → ENRESERV 16:56
PROVIDERS: ADMIT Family Medicine; ATTEND Family Medicine
PROC: 0H98XZZ Drainage of Buttock Skin, External Approach (ICD-10-PCS; principal; 2018-07-12)
DX: A41.9 Sepsis, unspecified organism (principal); E10.10 Type 1 diabetes mellitus with ketoacidosis without coma; K31.84 Gastroparesis; E10.43 Type 1 diabetes mellitus with diabetic autonomic (poly)neuropathy; E83.52 Hypercalcemia; E83.39 Other disorders of phosphorus metabolism; E87.1 Hypo-osmolality and hyponatremia; E87.5 Hyperkalemia; K61.1 Rectal abscess; A59.9 Trichomoniasis, unspecified; E86.0 Dehydration; L05.01 Pilonidal cyst with abscess; L02.412 Cutaneous abscess of left axilla; Z53.21 Procedure and treatment not carried out due to patient leaving prior to being seen by health care provider; F17.210 Nicotine dependence, cigarettes, uncomplicated; F12.90 Cannabis use, unspecified, uncomplicated; B37.9 Candidiasis, unspecified; K61.2 Anorectal abscess; K62.89 Other specified diseases of anus and rectum; L73.2 Hidradenitis suppurativa; Z79.4 Long term (current) use of insulin; Z82.49 Family history of ischemic heart disease and other diseases of the circulatory system; Z87.09 Personal history of other diseases of the respiratory system; Z91.14 Patient's other noncompliance with medication regimen; Z91.19 Patient's noncompliance with other medical treatment and regimen; Z98.891 History of uterine scar from previous surgery; Z79.899 Other long term (current) drug therapy; Z71.6 Tobacco abuse counseling
CPT/HCPCS: 36415; 36600; 71045; 74176; 80048; 80061; 80305; 82010; 82375; 82550; 82553; 82805; 82962; 83605; 83735; 84100; 84484; 84703; 87070; 87077; 87106; 93005; 96365; 96368; 96372; 96375; 99285; A6261; J1200; J1650; J1815; J2270; J2405; J2543; J2765; J3370; J3490; J7030; J7040; J7042; J7050; J7060

== ENCOUNTER 2018-07-16 18:24 | Inpatient (IN) | payer MEDICAID ==
[~2018-07-16] VITALS: Ht 170.2 cm; Wt 76.7 kg
[~2018-07-16 18:24] MED LIST changes: +INSULIN; -METF-416 MT
[2018-07-16] MEDS ORDERED: VANCOMYCIN 1 G PREMIX 200 ML IV ONE (23:15)
[2018-07-16] MEDS ORDERED: PIPERACILLIN/TAZ 3.375G PREMIX 50 ML IV ONE (23:15)
[2018-07-16] MEDS ORDERED: SODIUM CHLORIDE 0.9% 1000ML BAG (SEPSIS BOLUS) IV ONE (23:15)
[2018-07-16 23:36] LABS: BASOPHILS % 0.9 % (0.0-2.0); EOSINOPHILS % 2.5 % (0.0-5.0); HEMATOCRIT. 38.5 % (36.0-48.0); HEMOGLOBIN. 12.5 g/dL (12.0-16.0); LYMPHOCYTES % 48.6 % (20.0-50.0); MEAN CORPUSCULAR HEMOGLOBIN 26.9 pg (28.0-32.0); MEAN CORPUSCULAR VOLUME 82.8 fL (81.0-99.0); MEAN PLATELET VOLUME 8.3 fl (7.4-10.4); MONOCYTES % 10.1 % (2.0-8.0); NEUTROPHILS % 37.9 % (40.0-76.0); PLATELET 478 x1000/uL (130-400); RED BLOOD CELL COUNT 4.64 mill/uL (4.2-5.4); RED CELL DISTRIBUTION WIDTH 13.2 % (11.6-14.6)
[2018-07-16 23:38] LABS: CHLORIDE 101 mEq/L (98-107)
[2018-07-16 23:44] LABS: BETA HYDROXYBUTYRATE 0.5 mMol/L (0.0-0.3)
[2018-07-17] MEDS ORDERED: KETOROLAC 30MG/ML VIAL IV ONE (00:15)
[2018-07-17 04:00] VITALS: BP 114/76
[2018-07-17] MEDS ORDERED: SODIUM CHLORIDE 0.9% 1,000 ML IV SCH (04:34)
[2018-07-17] MEDS ORDERED: DOCUSATE SODIUM 100MG CAPSULE PO PRN (04:45)
[2018-07-17] MEDS ORDERED: HYDROCODONE/ACETAMINOPHEN 5/325MG TABLET PO PRN (04:45)
[2018-07-17] MEDS ORDERED: GUAIFENESIN 200MG/10ML SUGAR FREE UDC PO PRN (04:45)
[2018-07-17] MEDS ORDERED: ACETAMINOPHEN 325MG TABLET PO PRN (04:45)
[2018-07-17] MEDS ORDERED: CLONIDINE 0.1MG TABLET PO PRN (04:45)
[2018-07-17 06:07] VITALS: BP 114/74
[2018-07-17] MEDS: ONDANSETRON HCL 4MG/2ML INJ IV PRN ×3 (07:21→18:51)
[2018-07-17] MEDS: HYDROMORPHONE HCL/PF 2MG/ML CPJ IV PRN ×3 (07:22→23:34)
[2018-07-17 08:00] VITALS: BP 116/76
[2018-07-17] MEDS ORDERED: DEXTROSE 50% WATER 50ML SYRINGE IV PRN (08:00)
[2018-07-17] MEDS: BLOOD SUGAR DIAGNOSTIC STRIP TEST SCH ×4 (08:31→21:00)
[2018-07-17] MEDS: AMLODIPINE 10MG TABLET PO SCH (08:32)
[2018-07-17] MEDS: PIPERACILLIN/TAZ 3.375G PREMIX 50 ML IV SCH ×2 (08:32→17:59)
[2018-07-17] MEDS: INSULIN LISPRO 100 UNITS/ML SUBCUT SCH ×4 (08:42→23:01)
[2018-07-17] MEDS: VANCOMYCIN 1 G PREMIX 200 ML IV SCH ×2 (09:43→18:51)
[2018-07-17 12:00] VITALS: BP 95/70
[2018-07-17 16:00] VITALS: BP 115/80
[2018-07-17 20:00] VITALS: BP 110/64
[2018-07-18] VITALS: BP 113/80
[2018-07-18] MEDS: PIPERACILLIN/TAZ 3.375G PREMIX 50 ML IV SCH ×4 (02:24→23:11)
[2018-07-18] MEDS: VANCOMYCIN 1 G PREMIX 200 ML IV SCH ×2 (02:52→09:23)
[2018-07-18] MEDS: ONDANSETRON HCL 4MG/2ML INJ IV PRN (03:08)
[2018-07-18 04:00] VITALS: BP 103/53
[2018-07-18 05:42] LABS: BASOPHILS % 0.9 % (0.0-2.0); EOSINOPHILS % 3.9 % (0.0-5.0); HEMATOCRIT. 34.5 % (36.0-48.0); HEMOGLOBIN. 11.2 g/dL (12.0-16.0); LYMPHOCYTES % 39.5 % (20.0-50.0); MEAN CORPUSCULAR HEMOGLOBIN 27.2 pg (28.0-32.0); MEAN CORPUSCULAR VOLUME 83.5 fL (81.0-99.0); MEAN PLATELET VOLUME 8.2 fl (7.4-10.4); MONOCYTES % 9.9 % (2.0-8.0); NEUTROPHILS % 45.8 % (40.0-76.0); PLATELET 462 x1000/uL (130-400); RED BLOOD CELL COUNT 4.13 mill/uL (4.2-5.4); RED CELL DISTRIBUTION WIDTH 13.3 % (11.6-14.6)
[2018-07-18 05:47] LABS: CHLORIDE 103 mEq/L (98-107)
[2018-07-18] MEDS: INSULIN LISPRO 100 UNITS/ML SUBCUT SCH ×4 (06:37→23:20)
[2018-07-18 08:00] VITALS: BP 103/66
[2018-07-18] MEDS: BLOOD SUGAR DIAGNOSTIC STRIP TEST SCH ×3 (08:06→21:00)
[2018-07-18] MEDS: AMLODIPINE 10MG TABLET PO SCH (08:22)
[2018-07-18] MEDS ORDERED: HYDROCODONE/APAP 7.5/325MG 1 TAB TABLET PO PRN (11:00)
[2018-07-18] MEDS: KETOROLAC 30MG/ML VIAL IV PRN ×2 (11:26→16:21)
[2018-07-18 12:00] VITALS: BP 122/75
[2018-07-18 16:00] VITALS: BP 126/65
[2018-07-18] MEDS: VANCOMYCIN 1250MG in DEXTROSE 5% WATER 250ML IV SCH (16:23)
[2018-07-18 20:00] VITALS: BP 99/74
[2018-07-19] VITALS: BP 120/79
[2018-07-19] MEDS: VANCOMYCIN 1250MG in DEXTROSE 5% WATER 250ML IV SCH ×2 (00:16→10:45)
[2018-07-19 04:00] VITALS: BP 117/74
[2018-07-19] MEDS: BLOOD SUGAR DIAGNOSTIC STRIP TEST SCH ×2 (07:20→12:20)
[2018-07-19 08:00] VITALS: BP 111/66
[2018-07-19] MEDS: PIPERACILLIN/TAZ 3.375G PREMIX 50 ML IV SCH (08:26)
[2018-07-19] MEDS: INSULIN LISPRO 100 UNITS/ML SUBCUT SCH ×2 (08:29→13:57)
[2018-07-19] MEDS: AMLODIPINE 10MG TABLET PO SCH (08:50)
[2018-07-19] MEDS: ONDANSETRON HCL 4MG/2ML INJ IV PRN (11:14)
[2018-07-19 12:00] VITALS: BP 104/54
[2018-07-19 12:46] LABS: CHLORIDE 102 mEq/L (98-107)
[2018-07-19 16:00] VITALS: BP 95/43
[2018-07-19 17:06] VITALS: BP 120/82
== END 2018-07-19 17:25 | disposition home health service (06) | DRG 254 ==
LOC: ER 18:24 → 6EST 07-17 01:15 → EDBEDREQ 07-17 01:26 → EDBEDREQTM 07-17 01:26 → EDBEDREQSVC 07-17 01:26 → ENRESERV 07-17 02:17 → ER 07-17 02:57
PROVIDERS: ADMIT Hospitalist; ATTEND Hospitalist
DX: K61.1 Rectal abscess (principal); E11.10 Type 2 diabetes mellitus with ketoacidosis without coma; E44.0 Moderate protein-calorie malnutrition; E11.65 Type 2 diabetes mellitus with hyperglycemia; S62.396A Other fracture of fifth metacarpal bone, right hand, initial encounter for closed fracture; B95.61 Methicillin susceptible Staphylococcus aureus infection as the cause of diseases classified elsewhere; X58.XXXA Exposure to other specified factors, initial encounter; W22.8XXA Striking against or struck by other objects, initial encounter; Z98.891 History of uterine scar from previous surgery; Z79.899 Other long term (current) drug therapy; Y93.89 Activity, other specified; Y92.89 Other specified places as the place of occurrence of the external cause; Y99.8 Other external cause status; Z79.84 Long term (current) use of oral hypoglycemic drugs
CPT/HCPCS: 36415; 73110; 80048; 80202; 81025; 82010; 82962; 83036; 83605; 84145; 84484; 87070; 87077; 93005; 96365; 96366; 96368; 99285; C1893; J1170; J1815; J1885; J2405; J2543; J3370; J7030; J7060

== ENCOUNTER 2019-12-22 15:44 | Inpatient (IN) | payer MEDICAID ==
[~2019-12-22] VITALS: Ht 170.2 cm; Wt 75.7 kg
[~2019-12-22 15:44] MED LIST changes: +METF-414 PO
[2019-12-22] MEDS ORDERED: SODIUM CHLORIDE 0.9% 1,000 ML IV ONE ×2 (16:06→17:27)
[2019-12-22] MEDS ORDERED: FAMOTIDINE 20MG/2ML VIAL IV STA (16:06)
[2019-12-22] MEDS ORDERED: MORPHINE SULFATE 4 MG/ML CPJ (NOT FOR IM USE) IV STA (16:06)
[2019-12-22] MEDS ORDERED: ONDANSETRON HCL 4MG/2ML INJ IV STA (16:06)
[2019-12-22] MEDS ORDERED: LORAZEPAM 2MG/ML CPJ IV ONE (16:15)
[2019-12-22 16:33] LABS: BASOPHILS % 0.6 % (0.0-2.0); HEMATOCRIT. 45.4 % (36.0-48.0); HEMOGLOBIN. 15.1 g/dL (12.0-16.0); MEAN CORPUSCULAR HEMOGLOBIN 28.4 pg (28.0-32.0); MEAN CORPUSCULAR VOLUME 85.3 fL (81.0-99.0); MEAN PLATELET VOLUME 8.8 fl (7.4-10.4); MONOCYTES % 2.2 % (2.0-8.0); NEUTROPHILS % 85.2 % (40.0-76.0); PLATELET 381 x1000/uL (130-400); RED BLOOD CELL COUNT 5.32 mill/uL (4.2-5.4); RED CELL DISTRIBUTION WIDTH 13.3 % (11.6-14.6)
[2019-12-22 16:39] LABS: INR 1.1; PROTHROMBIN TIME 11.8 sec (9.6-11.0)
[2019-12-22 16:42] LABS: HCG SCREEN NEGATIVE
[2019-12-22 16:50] LABS: CHLORIDE 107 mEq/L (98-107)
[2019-12-22 16:53] LABS: ETHANOL BLOOD < 10 mg/dL
[2019-12-22 17:03] LABS: CLARITY URINE CLEAR (CLEAR); COLOR URINE YELLOW (YELLOW); KETONES URINE 4+ (NEGATIVE); LEUKOCYTE ESTERASE URINE TRACE (NEGATIVE); NITRITE URINE NEGATIVE (NEGATIVE); OCCULT BLOOD URINE NEGATIVE (NEGATIVE); PROTEIN URINE 1+ (NEGATIVE); SPECIFIC GRAVITY URINE 1.037 (1.005-1.030); UROBILINOGEN URINE 0.2 E.U./dL (0.2-1.0)
[2019-12-22 17:21] LABS: *AMPHETAMINES SCREEN URINE NEGATIVE (NEGATIVE); *BARBITURATES SCREEN URINE NEGATIVE (NEGATIVE); *BENZODIAZEPINES SCREEN URINE NEGATIVE (NEGATIVE); *COCAINE SCREEN URINE NEGATIVE (NEGATIVE); METHADONE URINE SCREEN NEGATIVE (NEGATIVE); OPIATES URINE SCREEN NEGATIVE (NEGATIVE)
[2019-12-22 17:22] LABS: PHENCYCLIDINE URINE SCREEN NEGATIVE (NEGATIVE)
[2019-12-22 17:25] LABS: CANNABINOID URINE SCREEN PRESUMTIVE POSITIVE (NEGATIVE)
[2019-12-22] MEDS ORDERED: INSULIN REGULAR (HUMULIN R) 300UNITS/3ML IV ONE (17:30)
[2019-12-22] MEDS ORDERED: CEFTRIAXONE 1 G PREMIX 50 ML IV ONE (17:30)
[2019-12-22] MEDS ORDERED: ONDANSETRON HCL 4MG/2ML INJ IV ONE (20:00)
[2019-12-22] MEDS ORDERED: MORPHINE SULFATE 4 MG/ML CPJ (NOT FOR IM USE) IV ONE (20:00)
[2019-12-22] MEDS ORDERED: GUAIFENESIN 200MG/10ML SUGAR FREE UDC PO PRN (22:00)
[2019-12-22] MEDS ORDERED: HYDROCODONE/APAP 7.5/325MG 1 TAB TABLET PO PRN (22:00)
[2019-12-22] MEDS ORDERED: CLONIDINE 0.1MG TABLET PO PRN (22:00)
[2019-12-22] MEDS ORDERED: ACETAMINOPHEN 325MG TABLET PO PRN (22:00)
[2019-12-22] MEDS ORDERED: MAGNESIUM/ALUMINUM HYDROXIDE/SIMETHICONE 30ML UDC PO PRN (22:00)
[2019-12-22] MEDS ORDERED: DOCUSATE SODIUM 100MG CAPSULE PO PRN (22:00)
[2019-12-23] MEDS: SODIUM CHLORIDE 0.9% 1,000 ML IV SCH ×3 (03:38→23:28)
[2019-12-23 04:51] LABS: BASOPHILS % 0.6 % (0.0-2.0); EOSINOPHILS % 0.4 % (0.0-5.0); HEMATOCRIT. 49.5 % (36.0-48.0); HEMOGLOBIN. 15.5 g/dL (12.0-16.0); LYMPHOCYTES % 10.2 % (20.0-50.0); MEAN CORPUSCULAR HEMOGLOBIN 27.9 pg (28.0-32.0); MEAN CORPUSCULAR VOLUME 89.2 fL (81.0-99.0); MEAN PLATELET VOLUME 8.5 fl (7.4-10.4); MONOCYTES % 4.5 % (2.0-8.0); NEUTROPHILS % 84.3 % (40.0-76.0); PLATELET 371 x1000/uL (130-400); RED BLOOD CELL COUNT 5.55 mill/uL (4.2-5.4); RED CELL DISTRIBUTION WIDTH 13.9 % (11.6-14.6)
[2019-12-23 04:59] LABS: CHLORIDE 112 mEq/L (98-107)
[2019-12-23] MEDS: ONDANSETRON HCL 4MG/2ML INJ IV PRN ×2 (08:46→13:04)
[2019-12-23] MEDS: HYDROMORPHONE HCL/PF 2MG/ML CPJ IV PRN ×4 (08:56→23:52)
[2019-12-23 16:05] VITALS: BP 145/87
[2019-12-23] MEDS ORDERED: CEFTRIAXONE 1 G PREMIX 50 ML IV SCH (18:00)
[2019-12-23] MEDS ORDERED: INFLUENZA VIRUS VACCINE(AFLURIA) 0.5ML SYR IM ONE (18:15)
[2019-12-23] MEDS ORDERED: DEXTROSE 50% WATER 50ML SYRINGE IV PRN ×3 (18:30→19:00)
[2019-12-23] MEDS ORDERED: SODIUM BICARBONATE 8.4% 1 MEQ/ML 50ML SYR IV NR (19:15)
[2019-12-23] MEDS ORDERED: SODIUM POLYSTYRENE SULFONATE 15 G/60 ML BOT PO NR (20:30)
[2019-12-23 20:39] VITALS: BP 150/88
[2019-12-23] MEDS: BLOOD SUGAR DIAGNOSTIC STRIP TEST SCH ×3 (20:44→23:00)
[2019-12-23] MEDS: INSULIN LISPRO 100 UNITS/ML SUBCUT SCH (20:45)
[2019-12-23 22:36] VITALS: BP 145/87
[2019-12-23 23:00] VITALS: BP 154/90
[2019-12-23] MEDS: INSULIN REGULAR (DRIP) 100 UNITS in SODIUM CHLORIDE 0.9% 99 ML IV SCH (23:29)
[2019-12-23] MEDS: METOCLOPRAMIDE HCL 10MG/2ML VIAL IV SCH (23:47)
[2019-12-24] VITALS (26 sets, daily range): BP systolic 93–154; BP diastolic 46–112
[2019-12-24] MEDS: BLOOD SUGAR DIAGNOSTIC STRIP TEST SCH ×25 (00:17→23:19)
[2019-12-24 00:18] LABS: CHLORIDE 110 mEq/L (98-107)
[2019-12-24] MEDS: HYDROMORPHONE HCL/PF 2MG/ML CPJ IV PRN ×5 (05:52→21:30)
[2019-12-24] MEDS: METOCLOPRAMIDE HCL 10MG/2ML VIAL IV SCH ×4 (06:06→23:20)
[2019-12-24 07:49] LABS: CHLORIDE 112 mEq/L (98-107)
[2019-12-24] MEDS: INSULIN LISPRO 100 UNITS/ML SUBCUT SCH (08:00)
[2019-12-24 08:01] LABS: BETA HYDROXYBUTYRATE 3.7 mMol/L (0.0-0.3)
[2019-12-24] MEDS: SODIUM CHLORIDE 0.9% 1,000 ML IV SCH (09:39)
[2019-12-24] MEDS ORDERED: DEXT 5%/0.9% NACL 1,000 ML IV SCH (12:00)
[2019-12-24 17:05] LABS: CHLORIDE 111 mEq/L (98-107)
[2019-12-24] MEDS: CEFTRIAXONE 1 G PREMIX 50 ML IV SCH (18:14)
[2019-12-24] MEDS: INSULIN REGULAR (DRIP) 100 UNITS in SODIUM CHLORIDE 0.9% 99 ML IV SCH (18:15)
[2019-12-24] MEDS: ONDANSETRON HCL 4MG/2ML INJ IV PRN (21:30)
[2019-12-24] MEDS: DEXT 5%/0.9% NACL KCL 20MEQ/L 1,000 ML IV SCH (23:20)
[2019-12-24 23:34] LABS: CHLORIDE 112 mEq/L (98-107)
[2019-12-25] VITALS (24 sets, daily range): BP systolic 96–141; BP diastolic 47–86
[2019-12-25] MEDS: BLOOD SUGAR DIAGNOSTIC STRIP TEST SCH ×23 (01:00→23:00)
[2019-12-25 05:51] LABS: BASOPHILS % 0.7 % (0.0-2.0); EOSINOPHILS % 0.1 % (0.0-5.0); HEMATOCRIT. 39.1 % (36.0-48.0); LYMPHOCYTES % 36.9 % (20.0-50.0); MEAN CORPUSCULAR HEMOGLOBIN 27.7 pg (28.0-32.0); MEAN CORPUSCULAR VOLUME 83.6 fL (81.0-99.0); MEAN PLATELET VOLUME 8.4 fl (7.4-10.4); MONOCYTES % 14.4 % (2.0-8.0); NEUTROPHILS % 47.9 % (40.0-76.0); PLATELET 326 x1000/uL (130-400); RED BLOOD CELL COUNT 4.68 mill/uL (4.2-5.4); RED CELL DISTRIBUTION WIDTH 13.3 % (11.6-14.6)
[2019-12-25] MEDS: METOCLOPRAMIDE HCL 10MG/2ML VIAL IV SCH ×3 (05:53→17:13)
[2019-12-25 06:19] LABS: CHLORIDE 110 mEq/L (98-107)
[2019-12-25 06:37] LABS: BETA HYDROXYBUTYRATE 1.8 mMol/L (0.0-0.3)
[2019-12-25] MEDS: HYDROMORPHONE HCL/PF 2MG/ML CPJ IV PRN ×3 (08:35→20:32)
[2019-12-25] MEDS: DEXT 5%/0.9% NACL KCL 20MEQ/L 1,000 ML IV SCH ×2 (09:22→15:31)
[2019-12-25] MEDS ORDERED: POTASSIUM CHLORIDE 20MEQ TABLET SR PO SCH (10:00)
[2019-12-25] MEDS: ONDANSETRON HCL 4MG/2ML INJ IV PRN (12:30)
[2019-12-25] MEDS ORDERED: POTASSIUM CHLORIDE INJ 40 MEQ in DEXT 5% WATER 250 ML IV SCH (13:00)
[2019-12-25 13:51] LABS: CHLORIDE 112 mEq/L (98-107)
[2019-12-25] MEDS: CEFTRIAXONE 1 G PREMIX 50 ML IV SCH (17:13)
[2019-12-26] VITALS (24 sets, daily range): BP systolic 87–144; BP diastolic 52–106
[2019-12-26] MEDS: BLOOD SUGAR DIAGNOSTIC STRIP TEST SCH ×22 (01:00→23:32)
[2019-12-26] MEDS: METOCLOPRAMIDE HCL 10MG/2ML VIAL IV SCH ×4 (01:10→18:06)
[2019-12-26] MEDS: INSULIN REGULAR (DRIP) 100 UNITS in SODIUM CHLORIDE 0.9% 99 ML IV SCH (02:05)
[2019-12-26] MEDS: HYDROMORPHONE HCL/PF 2MG/ML CPJ IV PRN ×4 (04:48→18:18)
[2019-12-26] MEDS ORDERED: DEXT 5%/0.9% NACL 1,000 ML IV SCH ×2 (11:00)
[2019-12-26 15:25] LABS: CHLORIDE 109 mEq/L (98-107)
[2019-12-26 15:34] LABS: BETA HYDROXYBUTYRATE 0.6 mMol/L (0.0-0.3)
[2019-12-26] MEDS: CEFTRIAXONE 1 G PREMIX 50 ML IV SCH (18:04)
[2019-12-26] MEDS ORDERED: POTASSIUM CHLORIDE 20MEQ TABLET SR PO NR (20:00)
[2019-12-26] MEDS ORDERED: DEXTROSE 50% WATER 50ML SYRINGE IV PRN (20:15)
[2019-12-26] MEDS: INSULIN LISPRO 100 UNITS/ML SUBCUT SCH (21:00)
[2019-12-26] MEDS ORDERED: SODIUM CHL 0.45% + KCL 20MEQ/L 1,000 ML IV SCH (21:00)
[2019-12-26] MEDS: INSULIN GLARGINE UD 100 UNITS/ML SYR SUBCUT SCH (22:04)
[2019-12-27] VITALS (11 sets, daily range): BP systolic 102–145; BP diastolic 52–94
[2019-12-27] MEDS: METOCLOPRAMIDE HCL 10MG/2ML VIAL IV SCH ×2 (05:06→06:00)
[2019-12-27] MEDS: HYDROMORPHONE HCL/PF 2MG/ML CPJ IV PRN (05:07)
[2019-12-27 06:27] LABS: BASOPHILS % 1.3 % (0.0-2.0); HEMATOCRIT. 35.6 % (36.0-48.0); HEMOGLOBIN. 11.7 g/dL (12.0-16.0); LYMPHOCYTES % 60.5 % (20.0-50.0); MEAN CORPUSCULAR HEMOGLOBIN 27.3 pg (28.0-32.0); MEAN CORPUSCULAR VOLUME 83.3 fL (81.0-99.0); MEAN PLATELET VOLUME 8.2 fl (7.4-10.4); MONOCYTES % 11.3 % (2.0-8.0); NEUTROPHILS % 25.9 % (40.0-76.0); PLATELET 293 x1000/uL (130-400); RED BLOOD CELL COUNT 4.27 mill/uL (4.2-5.4); RED CELL DISTRIBUTION WIDTH 13.1 % (11.6-14.6)
[2019-12-27 06:41] LABS: CHLORIDE 105 mEq/L (98-107)
[2019-12-27] MEDS: BLOOD SUGAR DIAGNOSTIC STRIP TEST SCH (07:53)
[2019-12-27] MEDS: INSULIN LISPRO 100 UNITS/ML SUBCUT SCH (08:33)
[2019-12-27] MEDS ORDERED: POTASSIUM CHLORIDE 20MEQ TABLET SR PO NR (09:00)
[2019-12-27] MEDS: INSULIN GLARGINE UD 100 UNITS/ML SYR SUBCUT SCH (10:00)
== END 2019-12-27 10:34 | disposition home or self-care (01) | DRG 420 ==
LOC: ER 15:44 → 6EST 18:24 → EDBEDREQ 12-23 14:10 → ENRESERV 12-23 14:40 → 5EST 12-23 23:34
PROVIDERS: ADMIT Hospitalist; ATTEND Hospitalist
DX: E11.10 Type 2 diabetes mellitus with ketoacidosis without coma (principal); K31.84 Gastroparesis; E11.43 Type 2 diabetes mellitus with diabetic autonomic (poly)neuropathy; R00.0 Tachycardia, unspecified; Z98.891 History of uterine scar from previous surgery; Z79.84 Long term (current) use of oral hypoglycemic drugs; Z79.899 Other long term (current) drug therapy
CPT/HCPCS: 36415; 71045; 80048; 80053; 80305; 80320; 81003; 82010; 82962; 83036; 84484; 84703; 85025; 93005; 99291; J0696; J1170; J1815; J2060; J2270; J2405; J2765; J3480; J3490; J7030; J7042; J7050; J7060; G0480

== ENCOUNTER 2020-10-04 18:40 | Inpatient (IN) | payer MEDICAID ==
[~2020-10-04] VITALS: Ht 170.2 cm; Wt 79.4 kg
[~2020-10-04 18:40] MED LIST changes: -INSULIN; -METF-414 PO; +OMEP10CA5 PO
[2020-10-04] MEDS ORDERED: ONDANSETRON HCL 4MG/2ML INJ IV STA ×2 (19:18→22:01)
[2020-10-04] MEDS ORDERED: MORPHINE SULFATE 4 MG/ML CPJ (NOT FOR IM USE) IV STA (19:18)
[2020-10-04] MEDS ORDERED: SODIUM CHLORIDE 0.9% 1,000 ML IV ONE ×2 (19:30→22:15)
[2020-10-04 20:15] LABS: BASOPHILS % 0.3 % (0.0-2.0); HEMATOCRIT. 47.6 % (36.0-48.0); HEMOGLOBIN. 14.9 g/dL (12.0-16.0); LYMPHOCYTES % 8.5 % (20.0-50.0); MEAN CORPUSCULAR HEMOGLOBIN 27.2 pg (28.0-32.0); MEAN CORPUSCULAR VOLUME 86.7 fL (81.0-99.0); MEAN PLATELET VOLUME 9.1 fl (7.4-10.4); MONOCYTES % 1.8 % (2.0-8.0); NEUTROPHILS % 89.4 % (40.0-76.0); PLATELET 362 x1000/uL (130-400); RED BLOOD CELL COUNT 5.49 mill/uL (4.2-5.4); RED CELL DISTRIBUTION WIDTH 13.3 % (11.6-14.6)
[2020-10-04 20:19] LABS: CHLORIDE 108 mEq/L (98-107)
[2020-10-04 20:21] LABS: INR 1.1; PROTHROMBIN TIME 12.1 sec (9.6-11.0)
[2020-10-04 20:23] LABS: ETHANOL BLOOD < 10 mg/dL
[2020-10-04 20:24] LABS: CLARITY URINE CLEAR (CLEAR); COLOR URINE YELLOW (YELLOW); KETONES URINE 4+ (NEGATIVE); LEUKOCYTE ESTERASE URINE NEGATIVE (NEGATIVE); NITRITE URINE NEGATIVE (NEGATIVE); OCCULT BLOOD URINE NEGATIVE (NEGATIVE); PH URINE 5.5 (4.5-8.0); PROTEIN URINE TRACE (NEGATIVE); SPECIFIC GRAVITY URINE 1.032 (1.005-1.030); UROBILINOGEN URINE 0.2 E.U./dL (0.2-1.0)
[2020-10-04 20:27] LABS: HCG SCREEN NEGATIVE
[2020-10-04 20:38] LABS: *BENZODIAZEPINES SCREEN URINE NEGATIVE (NEGATIVE)
[2020-10-04 20:39] LABS: *AMPHETAMINES SCREEN URINE NEGATIVE (NEGATIVE); *COCAINE SCREEN URINE NEGATIVE (NEGATIVE); METHADONE URINE SCREEN NEGATIVE (NEGATIVE); PHENCYCLIDINE URINE SCREEN NEGATIVE (NEGATIVE)
[2020-10-04 20:40] LABS: *BARBITURATES SCREEN URINE NEGATIVE (NEGATIVE)
[2020-10-04 20:50] LABS: CANNABINOID URINE SCREEN PRESUMTIVE POSITIVE (NEGATIVE); OPIATES URINE SCREEN PRESUMTIVE POSITIVE (NEGATIVE)
[2020-10-04] MEDS ORDERED: ONDA4TAB5 MT (22:04)
[2020-10-04] MEDS ORDERED: OMEP40CA12 MT (22:04)
[2020-10-04] MEDS ORDERED: HALOPERIDOL LACTATE 5MG/ML VIAL IM ONE (22:15)
[2020-10-05] MEDS ORDERED: SODIUM CHLORIDE 0.9% 1,000 ML IV ONE ×2 (00:15→02:00)
[2020-10-05] MEDS ORDERED: SODIUM CHLORIDE 0.9% 1,000 ML IV SCH (05:00)
[2020-10-05] MEDS ORDERED: DEXTROSE 50% WATER 50ML SYRINGE IV PRN (05:15)
[2020-10-05] MEDS: ACETAMINOPHEN 325MG TABLET PO PRN (05:32)
[2020-10-05] MEDS: ONDANSETRON HCL 4MG/2ML INJ IV PRN ×2 (05:32→12:47)
[2020-10-05 06:05] LABS: BASOPHILS % 0.7 % (0.0-2.0); HEMATOCRIT. 42.5 % (36.0-48.0); HEMOGLOBIN. 13.2 g/dL (12.0-16.0); LYMPHOCYTES % 10.8 % (20.0-50.0); MEAN CORPUSCULAR HEMOGLOBIN 26.9 pg (28.0-32.0); MEAN CORPUSCULAR VOLUME 86.9 fL (81.0-99.0); MEAN PLATELET VOLUME 8.4 fl (7.4-10.4); MONOCYTES % 4.9 % (2.0-8.0); NEUTROPHILS % 83.6 % (40.0-76.0); PLATELET 354 x1000/uL (130-400); RED BLOOD CELL COUNT 4.89 mill/uL (4.2-5.4); RED CELL DISTRIBUTION WIDTH 13.8 % (11.6-14.6)
[2020-10-05 06:14] LABS: CHLORIDE 115 mEq/L (98-107)
[2020-10-05] MEDS: METOPROLOL TARTRATE 25MG TABLET PO SCH ×2 (08:07→20:55)
[2020-10-05] MEDS: INSULIN LISPRO (MEDIUM DOSE) 100 UNITS/ML SUBCUT SCH ×4 (08:20→21:22)
[2020-10-05 08:30] VITALS: BP 146/90
[2020-10-05] MEDS: BLOOD SUGAR DIAGNOSTIC STRIP TEST SCH ×4 (08:42→21:07)
[2020-10-05] MEDS ORDERED: SODIUM CHLORIDE 0.45% 1,000 ML IV SCH (09:30)
[2020-10-05 10:15] VITALS: BP 146/90
[2020-10-05 12:00] VITALS: BP 156/73
[2020-10-05] MEDS: SODIUM BICARBONATE 50 MEQ in DEXTROSE 5% WATER 1,000 ML IV SCH (12:00)
[2020-10-05] MEDS: MORPHINE SULFATE 2 MG/ML CPJ (NOT FOR IM USE) IV PRN ×4 (12:44→23:58)
[2020-10-05] MEDS: CEFTRIAXONE 1,000 MG in DEXTROSE 5% WATER 50 ML IV SCH (12:52)
[2020-10-05] MEDS ORDERED: INSLIS SUBCUT (13:25)
[2020-10-05 15:29] LABS: HEMATOCRIT 44.6 % (36.0-48.0); HEMOGLOBIN 13.8 g/dL (12.0-16.0); MEAN CORPUSCULAR HEMOGLOBIN 26.8 pg (28.0-32.0); MEAN CORPUSCULAR VOLUME 86.3 fL (81.0-99.0); PLATELET 412 x1000/uL (130-400); RED BLOOD CELL COUNT 5.16 mill/uL (4.2-5.4); RED CELL DISTRIBUTION WIDTH 13.5 % (11.6-14.6)
[2020-10-05 16:00] VITALS: BP 124/86
[2020-10-05] MEDS: PANTOPRAZOLE SODIUM 40 MG/VIAL IV SCH (16:16)
[2020-10-05] MEDS: METOCLOPRAMIDE HCL 10MG/2ML VIAL IV SCH ×2 (17:24→23:56)
[2020-10-05 20:00] VITALS: BP 123/75
[2020-10-05 20:36] LABS: HEMATOCRIT 43.2 % (36.0-48.0); HEMOGLOBIN 13.3 g/dL (12.0-16.0); MEAN CORPUSCULAR HEMOGLOBIN 26.5 pg (28.0-32.0); PLATELET 371 x1000/uL (130-400); RED BLOOD CELL COUNT 5.03 mill/uL (4.2-5.4); RED CELL DISTRIBUTION WIDTH 13.4 % (11.6-14.6)
[2020-10-05] MEDS ORDERED: FAMOTIDINE 20MG/2ML VIAL IV SCH (21:00)
[2020-10-06] VITALS: BP 151/100
[2020-10-06 04:00] VITALS: BP 161/94
[2020-10-06] MEDS: SODIUM BICARBONATE 50 MEQ in DEXTROSE 5% WATER 1,000 ML IV SCH (04:08)
[2020-10-06] MEDS: ONDANSETRON HCL 4MG/2ML INJ IV PRN (04:14)
[2020-10-06] MEDS: MORPHINE SULFATE 2 MG/ML CPJ (NOT FOR IM USE) IV PRN ×7 (04:14→21:27)
[2020-10-06] MEDS: METOCLOPRAMIDE HCL 10MG/2ML VIAL IV SCH ×3 (06:00→18:51)
[2020-10-06] MEDS: BLOOD SUGAR DIAGNOSTIC STRIP TEST SCH ×4 (06:58→21:08)
[2020-10-06 07:03] LABS: BASOPHILS % 0.3 % (0.0-2.0); HEMATOCRIT. 45.7 % (36.0-48.0); HEMOGLOBIN. 14.6 g/dL (12.0-16.0); LYMPHOCYTES % 11.5 % (20.0-50.0); MEAN CORPUSCULAR HEMOGLOBIN 27.4 pg (28.0-32.0); MEAN CORPUSCULAR VOLUME 86.1 fL (81.0-99.0); MONOCYTES % 4.5 % (2.0-8.0); NEUTROPHILS % 83.7 % (40.0-76.0); PLATELET 366 x1000/uL (130-400); RED BLOOD CELL COUNT 5.31 mill/uL (4.2-5.4); RED CELL DISTRIBUTION WIDTH 13.4 % (11.6-14.6)
[2020-10-06 07:05] LABS: CHLORIDE 104 mEq/L (98-107)
[2020-10-06] MEDS: INSULIN LISPRO (MEDIUM DOSE) 100 UNITS/ML SUBCUT SCH ×4 (07:10→21:22)
[2020-10-06 08:30] VITALS: BP 156/91
[2020-10-06] MEDS: METOPROLOL TARTRATE 25MG TABLET PO SCH (09:01)
[2020-10-06] MEDS: PANTOPRAZOLE SODIUM 40 MG/VIAL IV SCH ×2 (09:01→18:51)
[2020-10-06] MEDS: CEFTRIAXONE 1,000 MG in DEXTROSE 5% WATER 50 ML IV SCH (11:48)
[2020-10-06 12:00] VITALS: BP 131/70
[2020-10-06] MEDS ORDERED: LABETALOL 5MG/ML SYR 20 MG/4 ML SYRINGE IV PRN (12:15)
[2020-10-06] MEDS ORDERED: HYDRALAZINE 20MG/ML VIAL IV PRN (12:15)
[2020-10-06 12:25] LABS: HEMATOCRIT 43.3 % (36.0-48.0); HEMOGLOBIN 13.9 g/dL (12.0-16.0); MEAN CORPUSCULAR HEMOGLOBIN 27.4 pg (28.0-32.0); MEAN CORPUSCULAR VOLUME 85.4 fL (81.0-99.0); PLATELET 383 x1000/uL (130-400); RED BLOOD CELL COUNT 5.07 mill/uL (4.2-5.4); RED CELL DISTRIBUTION WIDTH 13.2 % (11.6-14.6)
[2020-10-06] MEDS ORDERED: INSULIN GLARGINE UD 100 UNITS/ML SYR SUBCUT NR (14:00)
[2020-10-06] MEDS: METOPROLOL TARTRATE 5MG/5ML VIAL IV SCH ×2 (14:19→21:10)
[2020-10-06 16:00] VITALS: BP 155/69
[2020-10-06 20:00] VITALS: BP 129/71
[2020-10-06 20:28] LABS: HEMATOCRIT 46.8 % (36.0-48.0); HEMOGLOBIN 14.8 g/dL (12.0-16.0); MEAN CORPUSCULAR HEMOGLOBIN 26.9 pg (28.0-32.0); MEAN CORPUSCULAR VOLUME 84.7 fL (81.0-99.0); PLATELET 421 x1000/uL (130-400); RED BLOOD CELL COUNT 5.52 mill/uL (4.2-5.4); RED CELL DISTRIBUTION WIDTH 13.3 % (11.6-14.6)
[2020-10-07] VITALS: BP 109/70
[2020-10-07] MEDS: METOCLOPRAMIDE HCL 10MG/2ML VIAL IV SCH ×5 (00:39→23:31)
[2020-10-07] MEDS: MORPHINE SULFATE 2 MG/ML CPJ (NOT FOR IM USE) IV PRN ×9 (00:42→23:31)
[2020-10-07 04:00] VITALS: BP 134/95
[2020-10-07] MEDS: METOPROLOL TARTRATE 5MG/5ML VIAL IV SCH ×4 (04:11→20:47)
[2020-10-07] MEDS: SODIUM BICARBONATE 150 MEQ in DEXTROSE 5% WATER 1,000 ML IV SCH ×2 (05:20→19:53)
[2020-10-07] MEDS: BLOOD SUGAR DIAGNOSTIC STRIP TEST SCH ×4 (06:40→20:24)
[2020-10-07] MEDS: INSULIN LISPRO (MEDIUM DOSE) 100 UNITS/ML SUBCUT SCH ×4 (06:40→21:00)
[2020-10-07 08:00] VITALS: BP 152/62
[2020-10-07 08:07] LABS: BASOPHILS % 0.4 % (0.0-2.0); HEMATOCRIT. 45.8 % (36.0-48.0); HEMOGLOBIN. 14.8 g/dL (12.0-16.0); LYMPHOCYTES % 25.7 % (20.0-50.0); MEAN CORPUSCULAR HEMOGLOBIN 27.5 pg (28.0-32.0); MEAN CORPUSCULAR VOLUME 84.8 fL (81.0-99.0); MEAN PLATELET VOLUME 8.6 fl (7.4-10.4); MONOCYTES % 6.2 % (2.0-8.0); NEUTROPHILS % 67.7 % (40.0-76.0); PLATELET 396 x1000/uL (130-400); RED CELL DISTRIBUTION WIDTH 13.1 % (11.6-14.6)
[2020-10-07 08:22] LABS: CHLORIDE 105 mEq/L (98-107)
[2020-10-07] MEDS: ONDANSETRON HCL 4MG/2ML INJ IV PRN (08:44)
[2020-10-07] MEDS: PANTOPRAZOLE SODIUM 40 MG/VIAL IV SCH ×2 (08:44→17:40)
[2020-10-07] MEDS ORDERED: INSULIN GLARGINE UD 100 UNITS/ML SYR SUBCUT SCH (10:00)
[2020-10-07 12:00] VITALS: BP 144/75
[2020-10-07] MEDS ORDERED: INSULIN GLARGINE UD 100 UNITS/ML SYR SUBCUT NR (12:00)
[2020-10-07] MEDS: CEFTRIAXONE 1,000 MG in DEXTROSE 5% WATER 50 ML IV SCH (12:24)
[2020-10-07] MEDS ORDERED: PROCHLORPERAZINE 10MG/2ML VIAL IM NR (13:00)
[2020-10-07 16:00] VITALS: BP 131/89
[2020-10-07] MEDS ORDERED: PROCHLORPERAZINE 10MG/2ML VIAL IM PRN (18:00)
[2020-10-07 20:00] VITALS: BP 130/70
[2020-10-08] VITALS: BP 132/80
[2020-10-08] MEDS: METOPROLOL TARTRATE 5MG/5ML VIAL IV SCH ×3 (02:54→15:24)
[2020-10-08] MEDS: MORPHINE SULFATE 2 MG/ML CPJ (NOT FOR IM USE) IV PRN ×2 (02:55→06:19)
[2020-10-08 04:00] VITALS: BP 100/64
[2020-10-08] MEDS: BLOOD SUGAR DIAGNOSTIC STRIP TEST SCH ×2 (06:19→12:40)
[2020-10-08] MEDS: METOCLOPRAMIDE HCL 10MG/2ML VIAL IV SCH ×2 (06:19→13:13)
[2020-10-08] MEDS: INSULIN LISPRO (MEDIUM DOSE) 100 UNITS/ML SUBCUT SCH ×2 (06:46→13:14)
[2020-10-08 07:21] LABS: BASOPHILS % 0.8 % (0.0-2.0); EOSINOPHILS % 0.4 % (0.0-5.0); HEMATOCRIT. 43.5 % (36.0-48.0); HEMOGLOBIN. 14.2 g/dL (12.0-16.0); LYMPHOCYTES % 41.4 % (20.0-50.0); MEAN CORPUSCULAR HEMOGLOBIN 27.4 pg (28.0-32.0); MEAN CORPUSCULAR VOLUME 83.6 fL (81.0-99.0); MEAN PLATELET VOLUME 8.4 fl (7.4-10.4); MONOCYTES % 11.3 % (2.0-8.0); NEUTROPHILS % 46.1 % (40.0-76.0); PLATELET 349 x1000/uL (130-400); RED BLOOD CELL COUNT 5.21 mill/uL (4.2-5.4); RED CELL DISTRIBUTION WIDTH 13.3 % (11.6-14.6)
[2020-10-08 07:28] LABS: CHLORIDE 100 mEq/L (98-107)
[2020-10-08 08:00] VITALS: BP 103/63
[2020-10-08] MEDS ORDERED: INSULIN GLARGINE UD 100 UNITS/ML SYR SUBCUT SCH ×2 (10:00→17:00)
[2020-10-08] MEDS: PANTOPRAZOLE SODIUM 40 MG/VIAL IV SCH (10:13)
[2020-10-08] MEDS: ACETAMINOPHEN 325MG TABLET PO PRN (10:14)
[2020-10-08 12:00] VITALS: BP 116/73
[2020-10-08] MEDS: CEFTRIAXONE 1,000 MG in DEXTROSE 5% WATER 50 ML IV SCH (13:13)
[2020-10-08] MEDS ORDERED: POTASSIUM CHLORIDE 20MEQ TABLET SR PO NR (13:30)
[2020-10-08] MEDS: SODIUM BICARBONATE 150 MEQ in DEXTROSE 5% WATER 1,000 ML IV SCH (14:36)
== END 2020-10-08 17:12 | disposition left against medical advice (07) | DRG 720 ==
LOC: ER 18:40 → 8WST 10-05 01:37 → EDBEDREQTM 10-05 01:53 → EDBEDREQ 10-05 01:53 → EDBEDREQSVC 10-05 01:53 → EDBEDREQDT 10-05 01:53 → ENRESERV 10-05 03:50 → CANRESERV 10-05 03:50 → EDBEDREQSVC 10-05 04:45 → EDBEDREQTM 10-05 04:45 → EDBEDREQ 10-05 04:45 → ENRESERV 10-05 07:59
PROVIDERS: ADMIT Internal Medicine; ATTEND Internal Medicine
DX: A41.9 Sepsis, unspecified organism (principal); E10.10 Type 1 diabetes mellitus with ketoacidosis without coma; K92.0 Hematemesis; E87.8 Other disorders of electrolyte and fluid balance, not elsewhere classified; E83.51 Hypocalcemia; E86.0 Dehydration; F12.10 Cannabis abuse, uncomplicated; F41.9 Anxiety disorder, unspecified; I10 Essential (primary) hypertension; N30.00 Acute cystitis without hematuria; D64.9 Anemia, unspecified; E10.43 Type 1 diabetes mellitus with diabetic autonomic (poly)neuropathy; K31.84 Gastroparesis; K59.00 Constipation, unspecified; Z79.899 Other long term (current) drug therapy; Z91.14 Patient's other noncompliance with medication regimen; Z98.891 History of uterine scar from previous surgery
CPT/HCPCS: 36415; 74176; 80048; 80053; 80305; 80320; 81003; 82010; 82962; 83036; 83735; 84145; 84703; 85025; 85027; 93005; 93306; 99285; C9113; J0696; J0780; J1630; J1815; J2270; J2405; J2765; J3490; J7030; J7060; J7070; G0480

== ENCOUNTER 2020-10-10 11:15 | Emergency (ER) | payer MEDICAID ==
[~2020-10-10] VITALS: Ht 170.2 cm; Wt 81.0 kg
[~2020-10-10 11:15] MED LIST changes: +INSLIS SUBCUT; +OMEP40CA12 MT; +ONDA4TAB5 MT
[2020-10-10] MEDS ORDERED: DIPHENHYDRAMINE 50MG/ML VIAL IV ONE (11:45)
[2020-10-10] MEDS ORDERED: METHYLPREDNISOLONE SOD SUCC 125 MG/2 ML VIAL IV ONE (11:45)
[2020-10-10] MEDS ORDERED: FAMOTIDINE 20MG/2ML VIAL IV ONE (12:30)
[2020-10-10] MEDS ORDERED: SODIUM CHLORIDE 0.9% 1,000 ML IV ONE (12:30)
[2020-10-10 12:39] LABS: HEMATOCRIT 42.1 % (36.0-48.0); HEMOGLOBIN 13.6 g/dL (12.0-16.0); MEAN CORPUSCULAR HEMOGLOBIN 26.5 pg (28.0-32.0); MEAN CORPUSCULAR VOLUME 82.1 fL (81.0-99.0); PLATELET 344 x1000/uL (130-400); RED BLOOD CELL COUNT 5.13 mill/uL (4.2-5.4); RED CELL DISTRIBUTION WIDTH 12.8 % (11.6-14.6)
[2020-10-10 12:41] LABS: CHLORIDE 102 mEq/L (98-107)
[2020-10-10 12:45] LABS: HCG SCREEN NEGATIVE
[2020-10-10] MEDS ORDERED: POTASSIUM CHLORIDE 20MEQ TABLET SR PO ONE (12:45)
[2020-10-10] MEDS ORDERED: POTA-79 PO (13:16)
[2020-10-10] MEDS ORDERED: DIPH25TA62 PO (13:16)
[2020-10-10] MEDS ORDERED: EPIN0.3P3 IM (13:16)
[2020-10-10] MEDS ORDERED: P50 MT (13:16)
[2020-10-10 15:15] VITALS: BP 120/78
== END 2020-10-10 15:30 | disposition home or self-care (01) ==
LOC: ER 11:15
DX: T78.1XXA Other adverse food reactions, not elsewhere classified, initial encounter (principal); E11.9 Type 2 diabetes mellitus without complications; E87.6 Hypokalemia; Z98.890 Other specified postprocedural states; Z79.4 Long term (current) use of insulin; X58.XXXA Exposure to other specified factors, initial encounter
CPT/HCPCS: 36415; 80048; 84703; 85027; 93005; 96374; 96375; 99285; J1200; J2930; J3490; J7030

== ENCOUNTER 2021-01-03 01:14 | Inpatient (IN) | payer MEDICAID ==
[~2021-01-03] VITALS: Ht 170.2 cm; Wt 74.8 kg
[~2021-01-03 01:14] MED LIST changes: +DIPH25TA62 PO; +EPIN0.3P3 IM; +INSU100I28 SQ; +LANTUSUD SUBCUT; -METO-293 MT; -OMEP10CA5 PO; -ONDA4TAB5 MT
[2021-01-03] MEDS ORDERED: ONDANSETRON 4MG ODT PO STA (01:35)
[2021-01-03] MEDS ORDERED: SODIUM CHLORIDE 0.9% 1,000 ML IV ONE (01:45)
[2021-01-03] MEDS ORDERED: ONDANSETRON HCL 4MG/2ML INJ IV ONE (02:00)
[2021-01-03] MEDS ORDERED: KETOROLAC 30MG/ML VIAL IV ONE (02:00)
[2021-01-03 02:09] LABS: BASOPHILS % 0.5 % (0.0-2.0); HEMATOCRIT. 45.3 % (36.0-48.0); HEMOGLOBIN. 14.1 g/dL (12.0-16.0); LYMPHOCYTES % 9.7 % (20.0-50.0); MEAN CORPUSCULAR HEMOGLOBIN 26.8 pg (28.0-32.0); MEAN PLATELET VOLUME 8.9 fl (7.4-10.4); MONOCYTES % 2.4 % (2.0-8.0); NEUTROPHILS % 87.4 % (40.0-76.0); PLATELET 504 x1000/uL (130-400); RED BLOOD CELL COUNT 5.27 mill/uL (4.2-5.4); RED CELL DISTRIBUTION WIDTH 13.7 % (11.6-14.6)
[2021-01-03 02:12] LABS: CHLORIDE 106 mEq/L (98-107)
[2021-01-03 02:15] LABS: CLARITY URINE CLEAR (CLEAR); COLOR URINE YELLOW (YELLOW); KETONES URINE 4+ (NEGATIVE); LEUKOCYTE ESTERASE URINE NEGATIVE (NEGATIVE); NITRITE URINE NEGATIVE (NEGATIVE); OCCULT BLOOD URINE 3+ (NEGATIVE); PROTEIN URINE 1+ (NEGATIVE); SPECIFIC GRAVITY URINE 1.036 (1.005-1.030); UROBILINOGEN URINE 0.2 E.U./dL (0.2-1.0)
[2021-01-03 02:17] LABS: ETHANOL BLOOD < 10 mg/dL
[2021-01-03 02:21] LABS: BETA HYDROXYBUTYRATE 5.9 mMol/L (0.0-0.3)
[2021-01-03] MEDS ORDERED: SODIUM CHLORIDE 0.9% 1000ML BAG (SEPSIS BOLUS) IV ONE (02:30)
[2021-01-03] MEDS ORDERED: INSULIN REGULAR (DRIP) 100 UNITS in SODIUM CHLORIDE 0.9% 99 ML IV NR ×2 (02:30→02:45)
[2021-01-03] MEDS ORDERED: METOCLOPRAMIDE HCL 10MG/2ML VIAL IV ONE (03:30)
[2021-01-03] MEDS ORDERED: MORPHINE SULFATE 4 MG/ML CPJ (NOT FOR IM USE) IV ONE (03:45)
[2021-01-03 06:48] LABS: CHLORIDE 116 mEq/L (98-107)
[2021-01-03] MEDS ORDERED: DEXT 5%/0.45% NACL 1000ML 1,000 ML IV SCH (09:30)
[2021-01-03] MEDS ORDERED: TRAMADOL 50MG TABLET PO PRN (09:30)
[2021-01-03] MEDS: ACETAMINOPHEN 325MG TABLET PO PRN ×2 (09:48→17:05)
[2021-01-03] MEDS: ONDANSETRON HCL 4MG/2ML INJ IV PRN (09:48)
[2021-01-03 10:09] LABS: CHLORIDE 117 mEq/L (98-107)
[2021-01-03] MEDS ORDERED: MORPHINE SULFATE 2 MG/ML CPJ (NOT FOR IM USE) IV ONE (10:15)
[2021-01-03] MEDS ORDERED: DEXTROSE 50% WATER 50ML SYRINGE IV PRN (10:15)
[2021-01-03] MEDS ORDERED: INSULIN GLARGINE UD 100 UNITS/ML SYR SUBCUT NR (11:00)
[2021-01-03] MEDS: METOCLOPRAMIDE HCL 10MG/2ML VIAL IV SCH ×3 (12:00→23:59)
[2021-01-03] MEDS: BLOOD SUGAR DIAGNOSTIC STRIP TEST SCH ×3 (13:00→21:00)
[2021-01-03] MEDS: INSULIN LISPRO 100 UNITS/ML SUBCUT SCH ×3 (13:20→23:59)
[2021-01-03] MEDS: PANTOPRAZOLE SODIUM 40 MG/VIAL IV SCH (15:22)
[2021-01-03 18:51] VITALS: BP 94/50
[2021-01-03 20:00] VITALS: BP 100/51
[2021-01-03] MEDS ORDERED: INSULIN GLARGINE UD 100 UNITS/ML SYR SUBCUT SCH (22:00)
[2021-01-04] VITALS: BP 92/55
[2021-01-04] MEDS: INSULIN GLARGINE UD 100 UNITS/ML SYR SUBCUT SCH ×3 (01:16→19:54)
[2021-01-04 04:00] VITALS: BP 104/63
[2021-01-04] MEDS: KETOROLAC 30MG/ML VIAL IV PRN ×2 (05:27→23:19)
[2021-01-04] MEDS: METOCLOPRAMIDE HCL 10MG/2ML VIAL IV SCH ×4 (05:40→23:18)
[2021-01-04 06:08] LABS: BASOPHILS % 0.7 % (0.0-2.0); EOSINOPHILS % 0.1 % (0.0-5.0); HEMATOCRIT. 37.4 % (36.0-48.0); HEMOGLOBIN. 12.2 g/dL (12.0-16.0); LYMPHOCYTES % 31.9 % (20.0-50.0); MEAN CORPUSCULAR HEMOGLOBIN 27.4 pg (28.0-32.0); MEAN CORPUSCULAR VOLUME 83.9 fL (81.0-99.0); MEAN PLATELET VOLUME 8.7 fl (7.4-10.4); MONOCYTES % 8.5 % (2.0-8.0); NEUTROPHILS % 58.8 % (40.0-76.0); PLATELET 421 x1000/uL (130-400); RED BLOOD CELL COUNT 4.46 mill/uL (4.2-5.4); RED CELL DISTRIBUTION WIDTH 13.3 % (11.6-14.6)
[2021-01-04 06:17] LABS: CHLORIDE 109 mEq/L (98-107)
[2021-01-04] MEDS: BLOOD SUGAR DIAGNOSTIC STRIP TEST SCH ×4 (06:27→19:53)
[2021-01-04] MEDS: INSULIN LISPRO 100 UNITS/ML SUBCUT SCH ×4 (06:32→19:53)
[2021-01-04 07:10] LABS: *AMPHETAMINES SCREEN URINE NEGATIVE (NEGATIVE)
[2021-01-04 07:11] LABS: *BARBITURATES SCREEN URINE NEGATIVE (NEGATIVE); *BENZODIAZEPINES SCREEN URINE NEGATIVE (NEGATIVE); *COCAINE SCREEN URINE NEGATIVE (NEGATIVE); METHADONE URINE SCREEN NEGATIVE (NEGATIVE); OPIATES URINE SCREEN NEGATIVE (NEGATIVE); PHENCYCLIDINE URINE SCREEN NEGATIVE (NEGATIVE)
[2021-01-04 07:17] LABS: CANNABINOID URINE SCREEN PRESUMTIVE POSITIVE (NEGATIVE)
[2021-01-04 08:00] VITALS: BP 147/99
[2021-01-04] MEDS ORDERED: MORPHINE SULFATE 2 MG/ML CPJ (NOT FOR IM USE) IV SCH (09:00)
[2021-01-04] MEDS: PANTOPRAZOLE SODIUM 40 MG/VIAL IV SCH (11:04)
[2021-01-04] MEDS ORDERED: POTASSIUM CHLORIDE 20MEQ TABLET SR PO NR (11:30)
[2021-01-04 12:00] VITALS: BP 135/68
[2021-01-04] MEDS: ONDANSETRON HCL 4MG/2ML INJ IV PRN ×2 (12:08→18:23)
[2021-01-04 16:00] VITALS: BP 138/72
[2021-01-04] MEDS ORDERED: MORPHINE SULFATE 2 MG/ML CPJ (NOT FOR IM USE) IV NR (18:15)
[2021-01-04 20:00] VITALS: BP 156/97
[2021-01-05] VITALS (7 sets, daily range): BP systolic 93–152; BP diastolic 42–94
[2021-01-05] MEDS: METOCLOPRAMIDE HCL 10MG/2ML VIAL IV SCH ×4 (06:00→23:09)
[2021-01-05] MEDS: BLOOD SUGAR DIAGNOSTIC STRIP TEST SCH ×4 (06:23→21:17)
[2021-01-05] MEDS: INSULIN LISPRO 100 UNITS/ML SUBCUT SCH ×4 (06:23→21:17)
[2021-01-05] MEDS: ONDANSETRON HCL 4MG/2ML INJ IV PRN (06:47)
[2021-01-05] MEDS: KETOROLAC 30MG/ML VIAL IV PRN (06:47)
[2021-01-05] MEDS ORDERED: MORPHINE SULFATE 2 MG/ML CPJ (NOT FOR IM USE) IV SCH (08:00)
[2021-01-05] MEDS: FAMOTIDINE 20MG/2ML VIAL IV SCH ×2 (08:09→21:15)
[2021-01-05] MEDS: INSULIN GLARGINE UD 100 UNITS/ML SYR SUBCUT SCH ×2 (11:28→21:17)
[2021-01-05] MEDS ORDERED: IOHEXOL-300 100 ML BOTTLE ONE (11:35)
[2021-01-05] MEDS ORDERED: ONDANSETRON HCL 4MG/2ML INJ IV PRN (13:15)
[2021-01-05] MEDS ORDERED: MORPHINE SULFATE 2 MG/ML CPJ (NOT FOR IM USE) IV NR (14:30)
[2021-01-06 04:00] VITALS: BP 108/60
[2021-01-06] MEDS: BLOOD SUGAR DIAGNOSTIC STRIP TEST SCH ×2 (06:22→11:42)
[2021-01-06] MEDS: METOCLOPRAMIDE HCL 10MG/2ML VIAL IV SCH ×2 (06:22→11:50)
[2021-01-06] MEDS: INSULIN LISPRO 100 UNITS/ML SUBCUT SCH ×2 (06:23→11:50)
[2021-01-06 08:00] VITALS: BP 104/58
[2021-01-06] MEDS: FAMOTIDINE 20MG/2ML VIAL IV SCH (09:56)
[2021-01-06] MEDS: INSULIN GLARGINE UD 100 UNITS/ML SYR SUBCUT SCH (09:57)
[2021-01-06] MEDS ORDERED: INSU100I28 SQ (11:44)
[2021-01-06 12:00] VITALS: BP 134/39
[2021-01-06 12:36] VITALS: BP 104/58
== END 2021-01-06 13:20 | disposition home or self-care (01) | DRG 420 ==
LOC: ER 01:14 → 8WST 04:08 → EDBEDREQSVC 12:02 → ENRESERV 12:34 → CANBEDREQ 13:30 → ENRESERV 15:59 → CANRESERV 16:06 → ENRESERV 16:06
PROVIDERS: ADMIT Internal Medicine; ATTEND Internal Medicine
DX: E10.10 Type 1 diabetes mellitus with ketoacidosis without coma (principal); K31.84 Gastroparesis; E10.43 Type 1 diabetes mellitus with diabetic autonomic (poly)neuropathy; F17.210 Nicotine dependence, cigarettes, uncomplicated; Z20.822 Contact with and (suspected) exposure to COVID-19; F41.9 Anxiety disorder, unspecified; F12.90 Cannabis use, unspecified, uncomplicated; Z79.4 Long term (current) use of insulin; Z79.899 Other long term (current) drug therapy
CPT/HCPCS: 36415; 74177; 80048; 80053; 80305; 80320; 81003; 82010; 82962; 85025; 87426; 93005; 99291; C9113; G0378; J1815; J1885; J2270; J2405; J2765; J3490; J7030; J7050; Q9967; G0480

== ENCOUNTER 2021-03-02 07:01 | Inpatient (IN) | payer MEDICAID ==
[~2021-03-02] VITALS: Ht 177.8 cm; Wt 78.0 kg
[2021-03-02] VITALS (32 sets, daily range): BP systolic 84–151; BP diastolic 49–97
[2021-03-02] MEDS ORDERED: SODIUM CHLORIDE 0.9% 1,000 ML IV ONE ×3 (07:30→12:45)
[2021-03-02 08:29] LABS: CHLORIDE 101 mEq/L (98-107)
[2021-03-02] MEDS ORDERED: MORPHINE SULFATE 4 MG/ML CPJ (NOT FOR IM USE) IV ONE ×2 (08:30→10:45)
[2021-03-02 08:34] LABS: BASOPHILS % 0.4 % (0.0-2.0); HEMATOCRIT. 49.4 % (36.0-48.0); HEMOGLOBIN. 15.4 g/dL (12.0-16.0); LYMPHOCYTES % 8.7 % (20.0-50.0); MEAN CORPUSCULAR HEMOGLOBIN 26.2 pg (28.0-32.0); MEAN CORPUSCULAR VOLUME 84.3 fL (81.0-99.0); MEAN PLATELET VOLUME 9.2 fl (7.4-10.4); MONOCYTES % 3.8 % (2.0-8.0); NEUTROPHILS % 87.1 % (40.0-76.0); PLATELET 446 x1000/uL (130-400); RED BLOOD CELL COUNT 5.86 mill/uL (4.2-5.4); RED CELL DISTRIBUTION WIDTH 14.4 % (11.6-14.6)
[2021-03-02 08:39] LABS: HCG SCREEN NEGATIVE
[2021-03-02 08:40] LABS: BETA HYDROXYBUTYRATE 6.8 mMol/L (0.0-0.3)
[2021-03-02] MEDS ORDERED: INSULIN REGULAR (DRIP) 100 UNITS in SODIUM CHLORIDE 0.9% 99 ML IV SCH (08:45)
[2021-03-02 09:29] LABS: BG BASE EXCESS -17.1 mmol/L (-2.0-2.0); BG CARBOXYHEMOGLOBIN 0.1 % (0.5-1.5); BG DEOXYHEMOGLOBIN 1.3 % (0.0-5.0); BG HCO3 ACT 7.8 mmol/L (22.0-26.0); BG METHEMOGLOBIN 0.2 % (0.0-1.5); BG OXYGEN SATURATION 98.7 % (92.0-98.5); BG OXYHEMOGLOBIN 98.4 % (94.0-97.0); BG PCO2 18.6 mmHg (35.0-45.0); BG PH 7.241 (7.350-7.450); BG PO2 138.4 mmHg (75.0-100.0); BG SAMPLE SITE LEFT RADIAL; BG VENT MODE ROOM AIR
[2021-03-02 09:56] LABS: CLARITY URINE CLEAR (CLEAR); COLOR URINE YELLOW (YELLOW); KETONES URINE 4+ (NEGATIVE); LEUKOCYTE ESTERASE URINE NEGATIVE (NEGATIVE); NITRITE URINE NEGATIVE (NEGATIVE); OCCULT BLOOD URINE 2+ (NEGATIVE); PROTEIN URINE TRACE (NEGATIVE); SPECIFIC GRAVITY URINE 1.032 (1.005-1.030); UROBILINOGEN URINE 0.2 E.U./dL (0.2-1.0)
[2021-03-02] MEDS ORDERED: TRAMADOL 50MG TABLET PO PRN (11:45)
[2021-03-02] MEDS ORDERED: ACETAMINOPHEN 325MG TABLET PO PRN (11:45)
[2021-03-02] MEDS ORDERED: INSULIN REGULAR (DRIP) 100 UNITS in SODIUM CHLORIDE 0.9% 99 ML IV PRN ×2 (13:30→13:45)
[2021-03-02] MEDS ORDERED: DEXTROSE 50% WATER 50ML SYRINGE IV PRN (13:30)
[2021-03-02] MEDS: ONDANSETRON HCL 4MG/2ML INJ IV PRN ×2 (13:44→20:34)
[2021-03-02] MEDS: METOCLOPRAMIDE HCL 10MG/2ML VIAL IV SCH ×3 (13:44→23:14)
[2021-03-02] MEDS: PANTOPRAZOLE SODIUM 40 MG/VIAL IV SCH (13:45)
[2021-03-02] MEDS: BLOOD SUGAR DIAGNOSTIC STRIP TEST SCH ×9 (14:16→23:14)
[2021-03-02 17:37] LABS: CHLORIDE 111 mEq/L (98-107)
[2021-03-02] MEDS: MORPHINE SULFATE 4 MG/ML CPJ (NOT FOR IM USE) IV PRN (17:51)
[2021-03-02] MEDS: DEXT 5%/0.45% NACL 1000ML 1,000 ML IV SCH (18:28)
[2021-03-02 21:05] LABS: CHLORIDE 111 mEq/L (98-107)
[2021-03-02] MEDS ORDERED: INSULIN REGULAR (DRIP) 100 UNITS in SODIUM CHLORIDE 0.9% 100 ML IV SCH (23:30)
[2021-03-03] VITALS (29 sets, daily range): BP systolic 77–157; BP diastolic 36–114
[2021-03-03] MEDS: BLOOD SUGAR DIAGNOSTIC STRIP TEST SCH ×11 (00:11→20:46)
[2021-03-03] MEDS: MORPHINE SULFATE 4 MG/ML CPJ (NOT FOR IM USE) IV PRN ×4 (00:11→20:27)
[2021-03-03] MEDS: DEXT 5%/0.45% NACL 1000ML 1,000 ML IV SCH ×2 (00:52→09:30)
[2021-03-03] MEDS: METOCLOPRAMIDE HCL 10MG/2ML VIAL IV SCH ×4 (05:04→23:53)
[2021-03-03 06:43] LABS: BASOPHILS % 0.5 % (0.0-2.0); HEMATOCRIT. 38.8 % (36.0-48.0); HEMOGLOBIN. 12.4 g/dL (12.0-16.0); LYMPHOCYTES % 19.4 % (20.0-50.0); MEAN CORPUSCULAR HEMOGLOBIN 26.3 pg (28.0-32.0); MEAN CORPUSCULAR VOLUME 82.5 fL (81.0-99.0); MEAN PLATELET VOLUME 8.6 fl (7.4-10.4); NEUTROPHILS % 73.1 % (40.0-76.0); PLATELET 401 x1000/uL (130-400); RED BLOOD CELL COUNT 4.71 mill/uL (4.2-5.4); RED CELL DISTRIBUTION WIDTH 14.4 % (11.6-14.6)
[2021-03-03] MEDS ORDERED: BLOOD SUGAR DIAGNOSTIC STRIP TEST SCH (08:00)
[2021-03-03 08:05] LABS: CHLORIDE 112 mEq/L (98-107)
[2021-03-03] MEDS: PANTOPRAZOLE SODIUM 40 MG/VIAL IV SCH (08:09)
[2021-03-03 08:16] LABS: PHOSPHORUS 2.7 mg/dL (2.5-4.9)
[2021-03-03] MEDS ORDERED: DEXTROSE 50% WATER 50ML SYRINGE IV PRN (08:30)
[2021-03-03] MEDS: ONDANSETRON HCL 4MG/2ML INJ IV PRN (10:12)
[2021-03-03] MEDS: INSULIN GLARGINE UD 100 UNITS/ML SYR SUBCUT SCH ×2 (10:13→21:59)
[2021-03-03 12:10] LABS: CHLORIDE 112 mEq/L (98-107)
[2021-03-03] MEDS: INSULIN LISPRO 100 UNITS/ML SUBCUT SCH ×3 (12:37→21:08)
[2021-03-03 13:31] LABS: CHLORIDE 112 mEq/L (98-107)
[2021-03-03 16:42] LABS: CHLORIDE 110 mEq/L (98-107)
[2021-03-03 21:30] LABS: CHLORIDE 109 mEq/L (98-107)
[2021-03-04] VITALS: BP 105/59
[2021-03-04 03:39] VITALS: BP 91/74
[2021-03-04] MEDS: METOCLOPRAMIDE HCL 10MG/2ML VIAL IV SCH ×3 (05:19→23:19)
[2021-03-04] MEDS: MORPHINE SULFATE 4 MG/ML CPJ (NOT FOR IM USE) IV PRN (06:39)
[2021-03-04] MEDS: ONDANSETRON HCL 4MG/2ML INJ IV PRN (06:44)
[2021-03-04] MEDS: BLOOD SUGAR DIAGNOSTIC STRIP TEST SCH ×4 (07:30→21:08)
[2021-03-04 08:00] VITALS: BP 126/87
[2021-03-04] MEDS ORDERED: CLONIDINE 0.1MG TABLET PO PRN (09:30)
[2021-03-04] MEDS: PANTOPRAZOLE SODIUM 40 MG/VIAL IV SCH (09:41)
[2021-03-04] MEDS ORDERED: MORPHINE SULFATE 2 MG/ML CPJ (NOT FOR IM USE) IV NR (10:00)
[2021-03-04] MEDS ORDERED: NALOXONE HCL 0.4MG/ML VIAL IV PRN (10:00)
[2021-03-04] MEDS: INSULIN LISPRO 100 UNITS/ML SUBCUT SCH ×3 (10:12→21:14)
[2021-03-04 12:00] VITALS: BP 100/59
[2021-03-04 16:00] VITALS: BP 110/60
[2021-03-04 18:05] LABS: CHLORIDE 108 mEq/L (98-107)
[2021-03-04] MEDS: INSULIN GLARGINE UD 100 UNITS/ML SYR SUBCUT SCH ×2 (18:06→21:13)
[2021-03-04 20:00] VITALS: BP 95/28
[2021-03-05] VITALS: BP 118/67
[2021-03-05 03:38] VITALS: BP 91/52
[2021-03-05] MEDS: METOCLOPRAMIDE HCL 10MG/2ML VIAL IV SCH ×2 (05:39→11:55)
[2021-03-05] MEDS: MORPHINE SULFATE 4 MG/ML CPJ (NOT FOR IM USE) IV PRN (05:40)
[2021-03-05] MEDS: BLOOD SUGAR DIAGNOSTIC STRIP TEST SCH ×2 (07:31→11:55)
[2021-03-05 08:00] VITALS: BP 103/52
[2021-03-05] MEDS: INSULIN LISPRO 100 UNITS/ML SUBCUT SCH ×2 (08:00→12:04)
[2021-03-05] MEDS: PANTOPRAZOLE SODIUM 40 MG/VIAL IV SCH (09:01)
[2021-03-05] MEDS: INSULIN GLARGINE UD 100 UNITS/ML SYR SUBCUT SCH (09:01)
[2021-03-05 12:19] VITALS: BP 118/80
[2021-03-05 12:23] VITALS: BP 118/80
== END 2021-03-05 12:40 | disposition home or self-care (01) | DRG 420 ==
LOC: ER 07:01 → MICUNO 10:07 → ENRESERV 11:35 → 5EST 19:25
PROVIDERS: ADMIT Internal Medicine; ATTEND Internal Medicine
DX: E11.10 Type 2 diabetes mellitus with ketoacidosis without coma (principal); K31.84 Gastroparesis; E87.1 Hypo-osmolality and hyponatremia; E11.43 Type 2 diabetes mellitus with diabetic autonomic (poly)neuropathy; D72.829 Elevated white blood cell count, unspecified; T38.3X6A Underdosing of insulin and oral hypoglycemic [antidiabetic] drugs, initial encounter; J45.909 Unspecified asthma, uncomplicated; F12.90 Cannabis use, unspecified, uncomplicated; Z79.4 Long term (current) use of insulin; Z79.899 Other long term (current) drug therapy; Y92.89 Other specified places as the place of occurrence of the external cause
CPT/HCPCS: 36415; 36600; 71045; 80048; 80053; 81003; 82010; 82375; 82805; 82962; 83036; 83735; 84100; 84484; 84703; 85025; 93005; 99291; C9113; J1815; J2270; J2405; J2765; J7030; J7050

== ENCOUNTER 2021-05-12 03:05 | Inpatient (IN) | payer MEDICAID ==
[~2021-05-12] VITALS: Ht 165.1 cm; Wt 77.6 kg
[2021-05-12] VITALS (48 sets, daily range): BP systolic 63–150; BP diastolic 32–99
[~2021-05-12 03:05] MED LIST changes: -LANTUSUD SUBCUT; -OMEP40CA12 MT; +OMEP40CA20 MT
[2021-05-12] MEDS ORDERED: FAMOTIDINE 20MG/2ML VIAL IV STA (03:33)
[2021-05-12] MEDS ORDERED: ONDANSETRON HCL 4MG/2ML INJ IV STA (03:33)
[2021-05-12] MEDS ORDERED: SODIUM CHLORIDE 0.9% 1,000 ML IV ONE ×2 (03:45)
[2021-05-12 03:56] LABS: HEMATOCRIT. 46.9 % (36.0-48.0); MEAN CORPUSCULAR HEMOGLOBIN 26.8 pg (28.0-32.0); MEAN PLATELET VOLUME 8.9 fl (7.4-10.4); PLATELET 493 x1000/uL (130-400); RED BLOOD CELL COUNT 5.59 mill/uL (4.2-5.4); RED CELL DISTRIBUTION WIDTH 13.8 % (11.6-14.6)
[2021-05-12] MEDS ORDERED: MORPHINE SULFATE 4 MG/ML CPJ (NOT FOR IM USE) IV ONE (04:00)
[2021-05-12 04:03] LABS: CHLORIDE 102 mEq/L (98-107)
[2021-05-12 04:12] LABS: BETA HYDROXYBUTYRATE 5.2 mMol/L (0.0-0.3)
[2021-05-12 04:14] LABS: INR 1.1; PROTHROMBIN TIME 11.9 sec (9.6-11.0)
[2021-05-12 04:15] LABS: CLARITY URINE CLEAR (CLEAR); COLOR URINE YELLOW (YELLOW); KETONES URINE 4+ (NEGATIVE); LEUKOCYTE ESTERASE URINE NEGATIVE (NEGATIVE); NITRITE URINE NEGATIVE (NEGATIVE); OCCULT BLOOD URINE NEGATIVE (NEGATIVE); PROTEIN URINE NEGATIVE (NEGATIVE); SPECIFIC GRAVITY URINE 1.036 (1.005-1.030); UROBILINOGEN URINE 0.2 E.U./dL (0.2-1.0)
[2021-05-12] MEDS ORDERED: MORPHINE SULFATE 2 MG/ML CPJ (NOT FOR IM USE) IV SCH (04:15)
[2021-05-12 04:26] LABS: BG BASE EXCESS -10.9 mmol/L (-2.0-2.0); BG CARBOXYHEMOGLOBIN 0.4 % (0.5-1.5); BG DEOXYHEMOGLOBIN 1.8 % (0.0-5.0); BG FRACTION INSPIRED OXYGEN 21; BG HCO3 ACT 11.3 mmol/L (22.0-26.0); BG METHEMOGLOBIN 0.4 % (0.0-1.5); BG OXYGEN SATURATION 98.2 % (92.0-98.5); BG OXYHEMOGLOBIN 97.4 % (94.0-97.0); BG PCO2 18.9 mmHg (35.0-45.0); BG PH 7.395 (7.350-7.450); BG PO2 109.1 mmHg (75.0-100.0); BG SAMPLE SITE RIGHT RADIAL; BG TOTAL HEMOGLOBIN 14.3 g/dL (12.0-18.0); BG VENT MODE ROOM AIR
[2021-05-12] MEDS ORDERED: INSULIN REGULAR (DRIP) 100 UNITS in SODIUM CHLORIDE 0.9% 99 ML IV ONE ×2 (04:45→05:00)
[2021-05-12] MEDS ORDERED: POTASSIUM CHLORIDE 20MEQ TABLET SR PO ONE (04:45)
[2021-05-12 05:01] LABS: PHOSPHORUS 5.6 mg/dL (2.5-4.9)
[2021-05-12 05:05] LABS: *AMPHETAMINES SCREEN URINE NEGATIVE (NEGATIVE); *BARBITURATES SCREEN URINE NEGATIVE (NEGATIVE)
[2021-05-12 05:06] LABS: *BENZODIAZEPINES SCREEN URINE NEGATIVE (NEGATIVE); *COCAINE SCREEN URINE NEGATIVE (NEGATIVE); METHADONE URINE SCREEN NEGATIVE (NEGATIVE); OPIATES URINE SCREEN NEGATIVE (NEGATIVE); PHENCYCLIDINE URINE SCREEN NEGATIVE (NEGATIVE)
[2021-05-12 05:11] LABS: CANNABINOID URINE SCREEN PRESUMTIVE POSITIVE (NEGATIVE)
[2021-05-12] MEDS ORDERED: ONDANSETRON HCL 4MG/2ML INJ IV ONE (06:00)
[2021-05-12 06:12] LABS: CHLORIDE 110 mEq/L (98-107)
[2021-05-12 07:45] LABS: PLATELET ESTIMATE INCREASED
[2021-05-12] MEDS ORDERED: ONDANSETRON HCL 4MG/2ML INJ IV PRN (08:30)
[2021-05-12] MEDS: KETOROLAC 15MG/ML VIAL IV PRN ×2 (09:17→16:10)
[2021-05-12] MEDS ORDERED: IPRATROPIUM/ALBUTEROL 0.5-3(2.5)MG/3ML NEB NEB PRN (09:30)
[2021-05-12] MEDS ORDERED: CLONIDINE 0.1MG TABLET PO PRN (09:30)
[2021-05-12] MEDS ORDERED: ZOLPIDEM TARTRATE 5MG TABLET PO PRN (09:30)
[2021-05-12] MEDS ORDERED: ACETAMINOPHEN 325MG TABLET PO PRN (09:30)
[2021-05-12] MEDS ORDERED: GUAIFENESIN 200MG/10ML SUGAR FREE UDC PO PRN (09:30)
[2021-05-12] MEDS ORDERED: MAGNESIUM/ALUMINUM HYDROXIDE/SIMETHICONE 30ML UDC PO PRN (09:30)
[2021-05-12] MEDS ORDERED: DOCUSATE SODIUM 100MG CAPSULE PO PRN (09:30)
[2021-05-12] MEDS: PANTOPRAZOLE SODIUM 40 MG/VIAL IV SCH (10:26)
[2021-05-12] MEDS: SODIUM CHLORIDE 0.9% 1,000 ML IV SCH (10:26)
[2021-05-12 11:21] LABS: CHLORIDE 115 mEq/L (98-107)
[2021-05-12] MEDS: DEXT 5%/0.9% NACL KCL 20MEQ/L 1,000 ML IV SCH ×4 (12:23→18:14)
[2021-05-12] MEDS: ACETAMINOPHEN 325MG TABLET PO PRN ×2 (12:24→19:09)
[2021-05-12 12:28] LABS: TOTAL IRON BINDING CAPACITY 464 ug/dL (250-450)
[2021-05-12] MEDS ORDERED: DEXTROSE 50% WATER 50ML SYRINGE IV PRN ×2 (12:45)
[2021-05-12] MEDS ORDERED: INSULIN REGULAR (DRIP) 100 UNITS in SODIUM CHLORIDE 0.9% 100 ML IV SCH (13:00)
[2021-05-12 13:01] LABS: FOLIC ACID (FOLATE) SERUM 19.8 ng/mL (>5.38)
[2021-05-12] MEDS: ONDANSETRON HCL 4MG/2ML INJ IV PRN ×2 (13:11→19:08)
[2021-05-12] MEDS: BLOOD SUGAR DIAGNOSTIC STRIP TEST SCH ×11 (13:16→23:00)
[2021-05-12 22:00] LABS: BASOPHILS % 0.9 % (0.0-2.0); HEMOGLOBIN. 11.5 g/dL (12.0-16.0); LYMPHOCYTES % 20.3 % (20.0-50.0); MEAN CORPUSCULAR HEMOGLOBIN 26.5 pg (28.0-32.0); MEAN CORPUSCULAR VOLUME 82.9 fL (81.0-99.0); MONOCYTES % 7.2 % (2.0-8.0); NEUTROPHILS % 71.6 % (40.0-76.0); PLATELET 389 x1000/uL (130-400); RED BLOOD CELL COUNT 4.34 mill/uL (4.2-5.4); RED CELL DISTRIBUTION WIDTH 13.8 % (11.6-14.6)
[2021-05-12 22:34] LABS: CREATINE KINASE 124 IU/L (26-192)
[2021-05-12 22:35] LABS: CREATINE KINASE MB FRACTION < 1.0 ng/mL (0.5-3.6)
[2021-05-13] VITALS (71 sets, daily range): BP systolic 73–175; BP diastolic 27–131
[2021-05-13] MEDS: SODIUM CHLORIDE 0.9% 1,000 ML IV SCH (00:15)
[2021-05-13] MEDS: DEXT 5%/0.9% NACL KCL 20MEQ/L 1,000 ML IV SCH ×3 (01:00→12:22)
[2021-05-13] MEDS: BLOOD SUGAR DIAGNOSTIC STRIP TEST SCH ×14 (01:00→21:12)
[2021-05-13] MEDS: ONDANSETRON HCL 4MG/2ML INJ IV PRN ×4 (02:32→22:57)
[2021-05-13] MEDS: KETOROLAC 15MG/ML VIAL IV PRN ×2 (02:36→09:31)
[2021-05-13] MEDS ORDERED: DIATR MEGLU/DIATRIZOATE SOLN 30ML PO SCH (04:00)
[2021-05-13] MEDS ORDERED: METOCLOPRAMIDE HCL 10MG/2ML VIAL IV SCH (04:15)
[2021-05-13] MEDS ORDERED: METOCLOPRAMIDE 10MG/10 ML UDC PO SCH (05:00)
[2021-05-13 05:53] LABS: BASOPHILS % 0.8 % (0.0-2.0); EOSINOPHILS % 0.1 % (0.0-5.0); HEMATOCRIT. 40.2 % (36.0-48.0); LYMPHOCYTES % 17.9 % (20.0-50.0); MEAN CORPUSCULAR HEMOGLOBIN 26.9 pg (28.0-32.0); MEAN CORPUSCULAR VOLUME 82.9 fL (81.0-99.0); MEAN PLATELET VOLUME 8.7 fl (7.4-10.4); MONOCYTES % 3.4 % (2.0-8.0); NEUTROPHILS % 77.8 % (40.0-76.0); PLATELET 397 x1000/uL (130-400); RED BLOOD CELL COUNT 4.85 mill/uL (4.2-5.4); RED CELL DISTRIBUTION WIDTH 13.9 % (11.6-14.6)
[2021-05-13 06:11] LABS: CHLORIDE 121 mEq/L (98-107)
[2021-05-13 06:22] LABS: PHOSPHORUS 1.3 mg/dL (2.5-4.9)
[2021-05-13 06:24] LABS: CREATINE KINASE 210 IU/L (26-192)
[2021-05-13 06:27] LABS: CREATINE KINASE MB FRACTION < 1.0 ng/mL (0.5-3.6)
[2021-05-13] MEDS: PANTOPRAZOLE SODIUM 40 MG/VIAL IV SCH (09:30)
[2021-05-13 10:03] LABS: HCG SCREEN NEGATIVE
[2021-05-13] MEDS ORDERED: POTASSIUM PHOS,M-BASIC-D-BASIC 20 MMOL in DEXT 5% WATER 243.3333 ML IV NR ×2 (10:30→11:00)
[2021-05-13] MEDS ORDERED: DEXTROSE 50% WATER 50ML SYRINGE IV PRN (11:30)
[2021-05-13] MEDS ORDERED: MORPHINE SULFATE 2 MG/ML CPJ (NOT FOR IM USE) IV NR ×2 (11:45→12:00)
[2021-05-13] MEDS ORDERED: NALOXONE HCL 0.4MG/ML VIAL IV PRN (11:45)
[2021-05-13] MEDS: INSULIN LISPRO 100 UNITS/ML SUBCUT SCH ×3 (12:18→21:24)
[2021-05-13] MEDS ORDERED: IOHEXOL-300 100 ML BOTTLE ONE (13:39)
[2021-05-13 15:00] LABS: CHLORIDE 113 mEq/L (98-107)
[2021-05-13] MEDS: HYDROCODONE/ACETAMINOPHEN 5/325MG TABLET PO PRN ×2 (15:12→22:55)
[2021-05-13] MEDS: METOCLOPRAMIDE HCL 10MG/2ML VIAL IV SCH ×2 (17:37→23:06)
[2021-05-14] VITALS: BP 151/88
[2021-05-14] MEDS: MORPHINE SULFATE 2 MG/ML CPJ (NOT FOR IM USE) IV PRN ×2 (00:41→05:46)
[2021-05-14] MEDS: DEXT 5%/0.9% NACL KCL 20MEQ/L 1,000 ML IV SCH (01:20)
[2021-05-14 04:00] VITALS: BP 144/99
[2021-05-14] MEDS: ONDANSETRON HCL 4MG/2ML INJ IV PRN (05:41)
[2021-05-14 06:02] LABS: BASOPHILS % 0.5 % (0.0-2.0); HEMATOCRIT. 38.6 % (36.0-48.0); HEMOGLOBIN. 12.5 g/dL (12.0-16.0); LYMPHOCYTES % 27.7 % (20.0-50.0); MEAN CORPUSCULAR HEMOGLOBIN 26.8 pg (28.0-32.0); MEAN PLATELET VOLUME 8.6 fl (7.4-10.4); MONOCYTES % 4.9 % (2.0-8.0); NEUTROPHILS % 66.9 % (40.0-76.0); PLATELET 400 x1000/uL (130-400); RED BLOOD CELL COUNT 4.64 mill/uL (4.2-5.4); RED CELL DISTRIBUTION WIDTH 13.8 % (11.6-14.6)
[2021-05-14] MEDS: BLOOD SUGAR DIAGNOSTIC STRIP TEST SCH ×2 (06:12→12:10)
[2021-05-14] MEDS: METOCLOPRAMIDE HCL 10MG/2ML VIAL IV SCH ×2 (06:12→14:24)
[2021-05-14 06:13] LABS: CHLORIDE 107 mEq/L (98-107)
[2021-05-14 06:21] LABS: PHOSPHORUS 2.8 mg/dL (2.5-4.9)
[2021-05-14] MEDS: INSULIN LISPRO 100 UNITS/ML SUBCUT SCH ×2 (06:46→14:26)
[2021-05-14 08:00] VITALS: BP 93/53
[2021-05-14] MEDS: PANTOPRAZOLE SODIUM 40 MG/VIAL IV SCH (09:38)
[2021-05-14 12:00] VITALS: BP 118/74
[2021-05-14 14:57] VITALS: BP 124/71
[2021-05-15] MEDS ORDERED: FAMOTIDINE 20MG/2ML VIAL IV SCH (09:00)
== END 2021-05-14 14:55 | disposition home or self-care (01) | DRG 420 ==
LOC: ER 03:05 → EDBEDREQ 03:44 → MICUSO 04:38 → EDBEDREQ 04:41 → EDBEDREQTM 04:41 → MICUSO 13:02 → 8WST 05-13 18:00
PROVIDERS: ADMIT Internal Medicine; ATTEND Internal Medicine
DX: E10.10 Type 1 diabetes mellitus with ketoacidosis without coma (principal); E10.43 Type 1 diabetes mellitus with diabetic autonomic (poly)neuropathy; K31.84 Gastroparesis; E87.1 Hypo-osmolality and hyponatremia; F12.10 Cannabis abuse, uncomplicated; T38.3X6A Underdosing of insulin and oral hypoglycemic [antidiabetic] drugs, initial encounter; K21.9 Gastro-esophageal reflux disease without esophagitis; Z79.4 Long term (current) use of insulin; Z91.14 Patient's other noncompliance with medication regimen; Z98.891 History of uterine scar from previous surgery; Z91.128 Patient's intentional underdosing of medication regimen for other reason; Y92.89 Other specified places as the place of occurrence of the external cause; D72.829 Elevated white blood cell count, unspecified
CPT/HCPCS: 36415; 36600; 71045; 74177; 80048; 80053; 80305; 81003; 82010; 82375; 82550; 82553; 82607; 82746; 82805; 82962; 83036; 83540; 83550; 83735; 84100; 84484; 84703; 85025; 93005; 93970; 99291; C9113; J1815; J1885; J2270; J2405; J2765; J3490; J7030; J7050; J7060; J8597; Q9967

== ENCOUNTER 2021-06-23 17:28 | Emergency (ER) | payer MEDICAID ==
[~2021-06-23] VITALS: Ht 170.2 cm; Wt 80.0 kg
[2021-06-23] MEDS ORDERED: KETOROLAC 30MG/ML VIAL IV STA (17:59)
[2021-06-23] MEDS ORDERED: SODIUM CHLORIDE 0.9% 1,000 ML IV ONE (18:00)
[2021-06-23 18:39] LABS: BASOPHILS % 0.3 % (0.0-2.0); EOSINOPHILS % 0.1 % (0.0-5.0); HEMATOCRIT. 40.1 % (36.0-48.0); HEMOGLOBIN. 12.5 g/dL (12.0-16.0); LYMPHOCYTES % 16.8 % (20.0-50.0); MEAN CORPUSCULAR HEMOGLOBIN 26.6 pg (28.0-32.0); MEAN CORPUSCULAR VOLUME 85.7 fL (81.0-99.0); MEAN PLATELET VOLUME 8.5 fl (7.4-10.4); NEUTROPHILS % 73.8 % (40.0-76.0); PLATELET 402 x1000/uL (130-400); RED BLOOD CELL COUNT 4.69 mill/uL (4.2-5.4); RED CELL DISTRIBUTION WIDTH 13.6 % (11.6-14.6)
[2021-06-23 18:43] LABS: CHLORIDE 99 mEq/L (98-107)
[2021-06-23] MEDS ORDERED: FENTANYL CITRATE/PF 50MCG/ML 2ML VIAL IV ONE (21:30)
[2021-06-23] MEDS ORDERED: LIDOCAINE HCL/EPINEPHRINE 1%-EPI 1:100,000 50 ML VIAL INFIL ONE (21:30)
[2021-06-23] MEDS ORDERED: LIDOCAINE HCL/EPINEPHRINE 1%-EPI 1:100,000 20 ML VIAL INFIL ONE (22:15)
[2021-06-23] MEDS ORDERED: DOXYCYCLINE HYCLATE 100MG CAPSULE PO ONE (22:45)
[2021-06-23] MEDS ORDERED: DOXY-326 MT (23:14)
[2021-06-24 03:49] VITALS: BP 120/60
== END 2021-06-24 00:31 | disposition home or self-care (01) ==
LOC: ER 17:28
DX: L02.411 Cutaneous abscess of right axilla (principal); E11.9 Type 2 diabetes mellitus without complications; Z98.890 Other specified postprocedural states; Z79.4 Long term (current) use of insulin
CPT/HCPCS: 36415; 80053; 82962; 85025; 87040; 96361; 96374; 96375; 99285; J1885; J3010; J3490; J7030

== ENCOUNTER 2021-06-25 11:13 | Inpatient (IN) | payer MEDICAID ==
[~2021-06-25] VITALS: Ht 170.2 cm; Wt 79.4 kg
[~2021-06-25 11:13] MED LIST changes: +DOXY-326 MT
[2021-06-25 14:23] LABS: HEMATOCRIT. 40.2 % (36.0-48.0); HEMOGLOBIN. 12.9 g/dL (12.0-16.0); MEAN CORPUSCULAR HEMOGLOBIN 26.5 pg (28.0-32.0); MEAN CORPUSCULAR VOLUME 82.7 fL (81.0-99.0); MEAN PLATELET VOLUME 8.1 fl (7.4-10.4); PLATELET 547 x1000/uL (130-400); RED BLOOD CELL COUNT 4.86 mill/uL (4.2-5.4); RED CELL DISTRIBUTION WIDTH 13.2 % (11.6-14.6)
[2021-06-25 14:31] LABS: CHLORIDE 108 mEq/L (98-107)
[2021-06-25 14:39] LABS: HCG SCREEN NEGATIVE
[2021-06-25 14:44] LABS: BETA HYDROXYBUTYRATE 5.5 mMol/L (0.0-0.3)
[2021-06-25 15:30] LABS: CLARITY URINE CLEAR (CLEAR); COLOR URINE YELLOW (YELLOW); KETONES URINE 4+ (NEGATIVE); LEUKOCYTE ESTERASE URINE NEGATIVE (NEGATIVE); NITRITE URINE NEGATIVE (NEGATIVE); OCCULT BLOOD URINE 1+ (NEGATIVE); PH URINE 5.5 (4.5-8.0); PROTEIN URINE 1+ (NEGATIVE); SPECIFIC GRAVITY URINE 1.039 (1.005-1.030); UROBILINOGEN URINE 0.2 E.U./dL (0.2-1.0)
[2021-06-25] MEDS ORDERED: SODIUM CHLORIDE 0.9% 1,000 ML IV ONE (15:30)
[2021-06-25] MEDS ORDERED: INSULIN REGULAR (DRIP) 100 UNITS in SODIUM CHLORIDE 0.9% 99 ML IV SCH (15:30)
[2021-06-25] MEDS ORDERED: MORPHINE SULFATE 4 MG/ML CPJ (NOT FOR IM USE) IV ONE (15:45)
[2021-06-25] MEDS ORDERED: ONDANSETRON HCL 4MG/2ML INJ IV ONE (15:45)
[2021-06-25 16:48] LABS: PLATELET ESTIMATE INCREASED
[2021-06-25] MEDS: ONDANSETRON HCL 4MG/2ML INJ IV PRN (20:37)
[2021-06-25] MEDS: MORPHINE SULFATE 2 MG/ML CPJ (NOT FOR IM USE) IV PRN (21:14)
[2021-06-25] MEDS: DEXT 5%/0.45% NACL KCL 20MEQ/L 1,000 ML IV SCH (21:18)
[2021-06-26 01:12] LABS: BASOPHILS % 0.7 % (0.0-2.0); HEMATOCRIT. 42.6 % (36.0-48.0); HEMOGLOBIN. 13.5 g/dL (12.0-16.0); LYMPHOCYTES % 10.1 % (20.0-50.0); MEAN CORPUSCULAR HEMOGLOBIN 26.3 pg (28.0-32.0); MEAN CORPUSCULAR VOLUME 82.8 fL (81.0-99.0); MEAN PLATELET VOLUME 8.1 fl (7.4-10.4); MONOCYTES % 9.5 % (2.0-8.0); NEUTROPHILS % 79.7 % (40.0-76.0); PLATELET 559 x1000/uL (130-400); RED BLOOD CELL COUNT 5.15 mill/uL (4.2-5.4); RED CELL DISTRIBUTION WIDTH 13.2 % (11.6-14.6)
[2021-06-26 01:26] LABS: CHLORIDE 114 mEq/L (98-107)
[2021-06-26] MEDS: MORPHINE SULFATE 2 MG/ML CPJ (NOT FOR IM USE) IV PRN (01:26)
[2021-06-26] MEDS: ONDANSETRON HCL 4MG/2ML INJ IV PRN ×2 (01:27→08:30)
[2021-06-26 01:32] LABS: PHOSPHORUS 2.3 mg/dL (2.5-4.9)
[2021-06-26] MEDS ORDERED: NALOXONE HCL 0.4 MG/ML 1ML VIAL IV PRN (02:30)
[2021-06-26] MEDS ORDERED: INSULIN REGULAR (DRIP) 100 UNITS in SODIUM CHLORIDE 0.9% 99 ML IV SCH (04:00)
[2021-06-26] MEDS: DEXT 5%/0.45% NACL KCL 20MEQ/L 1,000 ML IV SCH (04:16)
[2021-06-26 07:05] LABS: CHLORIDE 115 mEq/L (98-107)
[2021-06-26 07:12] LABS: PHOSPHORUS 2.4 mg/dL (2.5-4.9)
[2021-06-26 07:26] LABS: BASOPHILS % 0.5 % (0.0-2.0); EOSINOPHILS % 0.1 % (0.0-5.0); HEMATOCRIT. 37.8 % (36.0-48.0); HEMOGLOBIN. 12.1 g/dL (12.0-16.0); LYMPHOCYTES % 13.1 % (20.0-50.0); MEAN CORPUSCULAR HEMOGLOBIN 26.3 pg (28.0-32.0); MEAN CORPUSCULAR VOLUME 82.5 fL (81.0-99.0); MEAN PLATELET VOLUME 8.3 fl (7.4-10.4); MONOCYTES % 10.1 % (2.0-8.0); NEUTROPHILS % 76.2 % (40.0-76.0); PLATELET 522 x1000/uL (130-400); RED BLOOD CELL COUNT 4.58 mill/uL (4.2-5.4); RED CELL DISTRIBUTION WIDTH 13.1 % (11.6-14.6)
[2021-06-26] MEDS ORDERED: DEXTROSE 50% WATER 50ML SYRINGE IV PRN (07:45)
[2021-06-26] MEDS ORDERED: KETOROLAC 15MG/ML VIAL IV PRN (07:45)
[2021-06-26] MEDS ORDERED: NALOXONE HCL 0.4MG/ML VIAL IV PRN (08:00)
[2021-06-26] MEDS: PANTOPRAZOLE SODIUM 40 MG/VIAL IV SCH (08:30)
[2021-06-26 10:25] VITALS: BP 144/86
[2021-06-26] MEDS ORDERED: MORPHINE SULFATE 2 MG/ML CPJ (NOT FOR IM USE) IV NR (11:30)
[2021-06-26] MEDS: METOCLOPRAMIDE HCL 10MG/2ML VIAL IV SCH ×2 (11:49→17:54)
[2021-06-26] MEDS: INSULIN GLARGINE UD 100 UNITS/ML SYR SUBCUT SCH ×2 (12:00→21:51)
[2021-06-26] MEDS: BLOOD SUGAR DIAGNOSTIC STRIP TEST SCH ×3 (12:26→21:21)
[2021-06-26] MEDS: INSULIN LISPRO 100 UNITS/ML SUBCUT SCH ×3 (13:46→21:50)
[2021-06-26] MEDS: KETOROLAC 15MG/ML VIAL IV PRN (18:48)
[2021-06-26 20:00] VITALS: BP 100/59
[2021-06-27] MEDS: METOCLOPRAMIDE HCL 10MG/2ML VIAL IV SCH ×4 (00:15→18:26)
[2021-06-27 04:00] VITALS: BP 153/98
[2021-06-27] MEDS: KETOROLAC 15MG/ML VIAL IV PRN ×2 (04:35→14:05)
[2021-06-27] MEDS: ONDANSETRON HCL 4MG/2ML INJ IV PRN ×2 (04:35→14:05)
[2021-06-27] MEDS ORDERED: MORPHINE SULFATE 2 MG/ML CPJ (NOT FOR IM USE) IV SCH (06:00)
[2021-06-27] MEDS: BLOOD SUGAR DIAGNOSTIC STRIP TEST SCH ×4 (06:20→20:35)
[2021-06-27 08:00] VITALS: BP 147/98
[2021-06-27] MEDS: PANTOPRAZOLE SODIUM 40 MG/VIAL IV SCH (08:32)
[2021-06-27] MEDS: INSULIN LISPRO 100 UNITS/ML SUBCUT SCH ×4 (08:38→22:53)
[2021-06-27] MEDS: INSULIN GLARGINE UD 100 UNITS/ML SYR SUBCUT SCH ×2 (09:08→22:00)
[2021-06-27 12:00] VITALS: BP 105/71
[2021-06-27 16:00] VITALS: BP 147/106
[2021-06-27] MEDS ORDERED: PROCHLORPERAZINE 10MG/2ML VIAL IV PRN (16:00)
[2021-06-27] MEDS: HYDROCODONE/ACETAMINOPHEN 5/325MG TABLET PO PRN (16:14)
[2021-06-27 17:52] LABS: BASOPHILS % 1.4 % (0.0-2.0); HEMATOCRIT. 38.4 % (36.0-48.0); HEMOGLOBIN. 12.5 g/dL (12.0-16.0); LYMPHOCYTES % 16.9 % (20.0-50.0); MEAN CORPUSCULAR HEMOGLOBIN 26.7 pg (28.0-32.0); MEAN CORPUSCULAR VOLUME 82.1 fL (81.0-99.0); MEAN PLATELET VOLUME 7.8 fl (7.4-10.4); NEUTROPHILS % 75.7 % (40.0-76.0); PLATELET 593 x1000/uL (130-400); RED BLOOD CELL COUNT 4.67 mill/uL (4.2-5.4); RED CELL DISTRIBUTION WIDTH 13.1 % (11.6-14.6)
[2021-06-27 18:06] LABS: CHLORIDE 107 mEq/L (98-107)
[2021-06-27 18:18] VITALS: BP 139/85
[2021-06-28] VITALS: BP 155/104
[2021-06-28] MEDS: METOCLOPRAMIDE HCL 10MG/2ML VIAL IV SCH ×3 (00:26→12:49)
[2021-06-28] MEDS: HYDROCODONE/ACETAMINOPHEN 5/325MG TABLET PO PRN (00:28)
[2021-06-28 04:00] VITALS: BP 141/98
[2021-06-28] MEDS: BLOOD SUGAR DIAGNOSTIC STRIP TEST SCH ×2 (06:27→12:12)
[2021-06-28 08:00] VITALS: BP 119/74
[2021-06-28] MEDS: PANTOPRAZOLE SODIUM 40 MG/VIAL IV SCH (09:29)
[2021-06-28] MEDS: INSULIN GLARGINE UD 100 UNITS/ML SYR SUBCUT SCH (09:44)
[2021-06-28] MEDS: INSULIN LISPRO 100 UNITS/ML SUBCUT SCH ×2 (09:56→12:40)
[2021-06-28 12:00] VITALS: BP 122/90
[2021-06-28] MEDS ORDERED: MAGNESIUM/ALUMINUM HYDROXIDE/SIMETHICONE 30ML UDC PO PRN (12:15)
[2021-06-28 16:00] VITALS: BP 124/73
[2021-06-28 16:17] VITALS: BP 124/73
== END 2021-06-28 16:59 | disposition home or self-care (01) | DRG 420 ==
LOC: ER 11:13 → MICUSO 16:27 → 6EST 06-26 10:15
PROVIDERS: ADMIT Internal Medicine; ATTEND Internal Medicine
DX: E10.10 Type 1 diabetes mellitus with ketoacidosis without coma (principal); E10.43 Type 1 diabetes mellitus with diabetic autonomic (poly)neuropathy; E87.8 Other disorders of electrolyte and fluid balance, not elsewhere classified; K31.84 Gastroparesis; D72.829 Elevated white blood cell count, unspecified; F12.90 Cannabis use, unspecified, uncomplicated; Z79.4 Long term (current) use of insulin; Z98.891 History of uterine scar from previous surgery; Z79.899 Other long term (current) drug therapy
CPT/HCPCS: 36415; 71045; 80048; 80053; 81003; 82010; 82962; 83735; 84100; 84145; 84703; 85025; 93005; 99291; C9113; J1815; J1885; J2270; J2405; J2765; J7030; J7050

== ENCOUNTER 2023-03-28 09:20 | Emergency (ER) | payer MEDICAID ==
[~2023-03-28] VITALS: Ht 167.6 cm; Wt 78.0 kg
[~2023-03-28 09:20] MED LIST changes: -DIPH25TA62 PO; -DOXY-326 MT; -EPIN0.3P3 IM; +METO-293 PO
[2023-03-28 09:23] VITALS: O2SAT 100
[2023-03-28] MEDS ORDERED: ACETAMINOPHEN 325MG TABLET PO PRN (09:30)
[2023-03-28 10:37] LABS: BASOPHILS % 0.5 % (0.0-2.0); CHLORIDE 106 mEq/L (98-107); EOSINOPHILS % 0.4 % (0.0-5.0); HEMATOCRIT. 31.4 % (36.0-48.0); INDEX HEMOLYSI 1 (1-3); INDEX ICTERIC 1 (1-4); INDEX LIPEMIC 1 (1-3); LYMPHOCYTES % 21.5 % (20.0-50.0); MEAN CORPUSCULAR HEMOGLOBIN 25.5 pg (28.0-32.0); MEAN CORPUSCULAR HGB CONC 31.9 g/dL (31.0-37.0); MEAN PLATELET VOLUME 8.1 fl (7.4-10.4); MONOCYTES % 6.1 % (2.0-8.0); NEUTROPHILS % 71.5 % (40.0-76.0); PLATELET 382 x1000/uL (130-400); POTASSIUM 3.5 mEq/L (3.5-5.1); RED BLOOD CELL COUNT 3.93 mill/uL (4.2-5.4); RED CELL DISTRIBUTION WIDTH 16.5 % (11.6-14.6); SODIUM 136 mEq/L (136-145); WHITE BLOOD COUNT 8.1 x1000/uL (4.5-11.0)
[2023-03-28 10:59] LABS: ALANINE AMINOTRANSFERASE 12 IU/L (13-61); ALBUMIN 2.8 g/dL (3.4-5.0); ASPARTATE AMINOTRANSFERASE 6 IU/L (15-37); B-HCG QUANTITATIVE 23258 mIU/mL (<3); BILIRUBIN TOTAL 0.4 mg/dL (0.1-1.0); CALCIUM 8.9 mg/dL (8.5-10.1); CARBON DIOXIDE 24 mEq/L (21-32); CREATININE 0.6 mg/dL (0.6-1.3); GLUCOSE 139 mg/dL (70-105); PROTEIN TOTAL 6.6 g/dL (6.0-8.3); UREA NITROGEN BLOOD 7 mg/dL (7-21)
[2023-03-28] MEDS ORDERED: TOPUD PO (11:38)
[2023-03-28 12:25] VITALS: BP 103/60; PULSE 100; RESP 20; TEMP 99.1
== END 2023-03-28 13:17 | disposition home or self-care (01) ==
LOC: ER 09:20
DX: O26.892 Other specified pregnancy related conditions, second trimester (principal); Z3A.19 19 weeks gestation of pregnancy; R10.9 Unspecified abdominal pain; R51.9 Headache, unspecified; E11.9 Type 2 diabetes mellitus without complications
CPT/HCPCS: 36415; 76805; 80053; 84702; 85025; 86850; 86900; 99285

== ENCOUNTER 2023-11-16 13:22 | Emergency (ER) | payer MEDICAID ==
[~2023-11-16] VITALS: Ht 167.6 cm; Wt 75.0 kg
[~2023-11-16 13:22] MED LIST changes: +LIP40 MT; +ONDA4TAB11 PO; +TOPUD PO
[2023-11-16 13:25] VITALS: O2SAT 98
[2023-11-16] MEDS: HALOPERIDOL LACTATE 5MG/ML VIAL IM ONE (14:21)
[2023-11-16] MEDS: SODIUM CHLORIDE 0.9% 1,500 ML IV ONE (14:21)
[2023-11-16] MEDS: CAPSAICIN 0.075% CREAM 60GM TOP PRN (14:30)
[2023-11-16 14:43] LABS: BASOPHILS % 0.9 % (0.0-2.0); DIFFERENTIAL COMMENT 0; HEMATOCRIT. 30.8 % (36.0-48.0); HEMOGLOBIN. 9.7 g/dL (12.0-16.0); LYMPHOCYTES % 26.4 % (20.0-50.0); MEAN CORPUSCULAR HGB CONC 31.4 g/dL (31.0-37.0); MEAN CORPUSCULAR VOLUME 73.4 fL (81.0-99.0); MEAN PLATELET VOLUME 8.3 fl (7.4-10.4); MONOCYTES % 7.9 % (2.0-8.0); NEUTROPHILS % 64.8 % (40.0-76.0); PLATELET 537 x1000/uL (130-400); RED CELL DISTRIBUTION WIDTH 17.6 % (11.6-14.6); WHITE BLOOD COUNT 7.9 x1000/uL (4.5-11.0)
[2023-11-16 14:47] LABS: ALANINE AMINOTRANSFERASE 12 IU/L (10-49); ALBUMIN 4.4 g/dL (3.2-4.8); ASPARTATE AMINOTRANSFERASE 19 IU/L (<34); CALCIUM 8.8 mg/dL (8.7-10.4); CARBON DIOXIDE 20 mEq/L (21-32); CHLORIDE 100 mEq/L (98-107); GLUCOSE 361 mg/dL (70-105); POTASSIUM 3.8 mEq/L (3.5-5.1); PROTEIN TOTAL 7.3 g/dL (6.0-8.3); SODIUM 132 mEq/L (136-145); UREA NITROGEN BLOOD 24 mg/dL (9-23)
[2023-11-16 14:48] LABS: HCG SCREEN NEGATIVE
[2023-11-16 14:49] LABS: PROTHROMBIN TIME 11.3 sec (9.6-11.0)
[2023-11-16 14:51] LABS: CREATININE 1.5 mg/dL (0.6-1.0); TROPONIN I HIGH SENSITIVITY < 4 ng/L (3.0-34)
[2023-11-16 14:52] LABS: ETHANOL BLOOD < 10 mg/dL (<10)
[2023-11-16 16:02] VITALS: TEMP 98.8
[2023-11-16 18:00] VITALS: BP 99/48; PULSE 91; RESP 13
[2023-11-16 18:34] LABS: CALCIUM 8.4 mg/dL (8.7-10.4); CARBON DIOXIDE 20 mEq/L (21-32); CHLORIDE 107 mEq/L (98-107); CREATININE 1.1 mg/dL (0.6-1.0); GLUCOSE 256 mg/dL (70-105); POTASSIUM 3.8 mEq/L (3.5-5.1); SODIUM 137 mEq/L (136-145); UREA NITROGEN BLOOD 20 mg/dL (9-23)
[2023-11-16] MEDS ORDERED: INSULIN GLARGINE 100 UNITS/ML SUBCUT NR (19:15)
== END 2023-11-16 20:39 | disposition left against medical advice (07) ==
LOC: ER 13:33 → EDBEDREQ 19:47 → EDBEDREQTM 19:47 → CANBEDREQ 20:38 → ER 20:39
DX: E11.10 Type 2 diabetes mellitus with ketoacidosis without coma (principal); Z98.890 Other specified postprocedural states
CPT/HCPCS: 80053; 80048; 80320; 84703; 83690; 85025; 85610; 84484; 36415; 71045; 93005; 96360; 96372; 99285; J1630; J7030; Z7610; G0480

== ENCOUNTER 2024-04-20 20:36 | Emergency (ER) | payer MEDICAID ==
[~2024-04-20] VITALS: Ht 170.2 cm; Wt 64.0 kg
[~2024-04-20 20:36] MED LIST changes: +ONDA-239 PO; -ONDA4TAB11 PO
[2024-04-20 20:46] VITALS: TEMP 98.2; O2SAT 100
[2024-04-20] MEDS: MAGNESIUM/ALUMINUM HYDROXIDE/SIMETHICONE 30ML UDC PO STA (22:08)
[2024-04-20] MEDS: SODIUM CHLORIDE 0.9% 1,000 ML IV ONE ×3 (22:15→22:45)
[2024-04-20] MEDS: ACETAMINOPHEN 1000MG/100ML 100 ML IV ONE (23:00)
[2024-04-20] MEDS: METOCLOPRAMIDE HCL 10MG/2ML VIAL IV ONE (23:00)
[2024-04-20] MEDS: PANTOPRAZOLE SODIUM 40 MG/VIAL IV ONE (23:01)
[2024-04-21 00:11] LABS: BASOPHILS % 0.6 % (0.0-2.0); CARBON DIOXIDE 23 mEq/L (21-32); CHLORIDE 107 mEq/L (98-107); DIFFERENTIAL COMMENT 0; EOSINOPHILS % 0.3 % (0.0-5.0); HEMOGLOBIN. 9.4 g/dL (12.0-16.0); LYMPHOCYTES % 23.5 % (20.0-50.0); MEAN CORPUSCULAR HEMOGLOBIN 23.6 pg (28.0-32.0); MEAN CORPUSCULAR HGB CONC 31.3 g/dL (31.0-37.0); MEAN CORPUSCULAR VOLUME 75.6 fL (81.0-99.0); MEAN PLATELET VOLUME 8.3 fl (7.4-10.4); MONOCYTES % 8.5 % (2.0-8.0); NEUTROPHILS % 67.1 % (40.0-76.0); PLATELET 445 x1000/uL (130-400); POTASSIUM 3.5 mEq/L (3.5-5.1); RED BLOOD CELL COUNT 3.97 mill/uL (4.2-5.4); RED CELL DISTRIBUTION WIDTH 21.8 % (11.6-14.6); SODIUM 137 mEq/L (136-145)
[2024-04-21 00:16] LABS: CREATININE 0.8 mg/dL (0.6-1.0)
[2024-04-21 00:17] LABS: GLUCOSE 157 mg/dL (70-105); UREA NITROGEN BLOOD 9 mg/dL (9-23)
[2024-04-21 00:18] LABS: ALANINE AMINOTRANSFERASE 9 IU/L (10-49); ALBUMIN 3.9 g/dL (3.2-4.8); ASPARTATE AMINOTRANSFERASE 9 IU/L (<34)
[2024-04-21 00:19] LABS: BILIRUBIN DIRECT 0.3 mg/dL (<=3.0); PROTEIN TOTAL 6.4 g/dL (6.0-8.3)
[2024-04-21 00:21] LABS: ETHANOL BLOOD < 10 mg/dL (<10)
[2024-04-21 00:45] LABS: HCG SCREEN POSITIVE
[2024-04-21] MEDS: MORPHINE SULFATE 4 MG/ML INJ (FOR IV/IM USE) IV ONE (02:45)
[2024-04-21] MEDS: METOCLOPRAMIDE HCL 10MG/2ML VIAL IV ONE (02:45)
[2024-04-21 03:11] LABS: PROTHROMBIN TIME 11.4 sec (9.6-11.0)
[2024-04-21] MEDS ORDERED: IPRATROPIUM/ALBUTEROL 0.5-3(2.5)MG/3ML NEB HHN PRN (10:45)
[2024-04-21] MEDS ORDERED: ONDANSETRON HCL 4MG/2ML INJ IV PRN (10:45)
[2024-04-21] MEDS ORDERED: DOCUSATE SODIUM 100MG CAPSULE PO PRN (10:45)
[2024-04-21] MEDS ORDERED: ACETAMINOPHEN 325MG TABLET PO PRN ×2 (10:45)
[2024-04-21] MEDS ORDERED: MAGNESIUM/ALUMINUM HYDROXIDE/SIMETHICONE 30ML UDC PO PRN (10:45)
[2024-04-21] MEDS ORDERED: DEXTROSE 50% WATER 50ML SYRINGE IV PRN (13:15)
[2024-04-21] MEDS ORDERED: INSULIN LISPRO 100 UNITS/ML SUBCUT SCH (13:45)
[2024-04-21 15:23] LABS: IRON 64 ug/dL (50-170)
[2024-04-21 15:26] LABS: TOTAL IRON BINDING CAPACITY 216 ug/dl (250-425)
[2024-04-21 15:29] LABS: FERRITIN 9 ng/mL (10-291); FOLIC ACID (FOLATE) SERUM 13.87 ng/mL (>5.38)
[2024-04-21 15:30] LABS: VITAMIN B12 SERUM 415 pg/mL (211-911)
[2024-04-21 16:24] VITALS: BP 108/75; PULSE 95; RESP 18; O2SAT 100
[2024-04-21] MEDS ORDERED: BLOOD SUGAR DIAGNOSTIC STRIP TEST SCH (17:00)
[2024-04-21] MEDS: METOCLOPRAMIDE HCL 10MG/2ML VIAL IV SCH (17:10)
[2024-04-21] MEDS ORDERED: INSULIN GLARGINE 100 UNITS/ML SUBCUT SCH (22:00)
[2024-04-22] MEDS ORDERED: PANTOPRAZOLE SODIUM 40 MG/VIAL IV SCH (09:00)
[2024-06-03] MEDS ORDERED: METO-293 MT (10:33)
== END 2024-04-21 17:44 | disposition left against medical advice (07) ==
LOC: ER 20:36 → 5WST 04-21 04:12 → UNDOADMIN 04-21 04:12 → 5WST 04-21 07:51 → ER 04-21 17:44
DX: O26.891 Other specified pregnancy related conditions, first trimester (principal); R10.30 Lower abdominal pain, unspecified; R11.2 Nausea with vomiting, unspecified; Z3A.08 8 weeks gestation of pregnancy
CPT/HCPCS: 80076; 80048; 80320; 82962; 84703; 84702; 83690; 85025; 85610; 36415 ×2; 96368; 96361; 96365; 96366; 96375 ×2; 99285; 82607; 82728; 82746; 83036; 83540; 83550; 76801; 96376; J2765 ×2; J2470; J7030; J2270; Z7610; 96374; G0480; J0131

== ENCOUNTER 2024-04-30 15:37 | Inpatient (IN) | payer MEDICAID ==
[~2024-04-30] VITALS: Ht 170.2 cm; Wt 72.6 kg
[2024-04-30] MEDS: MORPHINE SULFATE 4 MG/ML INJ (FOR IV/IM USE) IM STA (16:38)
[2024-04-30] MEDS: ONDANSETRON 4MG ODT PO STA (16:39)
[2024-04-30 17:04] LABS: BASOPHILS % 0.4 % (0.0-2.0); DIFFERENTIAL COMMENT 0; HEMATOCRIT. 32.7 % (36.0-48.0); HEMOGLOBIN. 10.3 g/dL (12.0-16.0); LYMPHOCYTES % 14.6 % (20.0-50.0); MEAN CORPUSCULAR HEMOGLOBIN 23.9 pg (28.0-32.0); MEAN CORPUSCULAR HGB CONC 31.6 g/dL (31.0-37.0); MEAN CORPUSCULAR VOLUME 75.6 fL (81.0-99.0); MEAN PLATELET VOLUME 8.5 fl (7.4-10.4); PLATELET 480 x1000/uL (130-400); RED BLOOD CELL COUNT 4.32 mill/uL (4.2-5.4); WHITE BLOOD COUNT 9.5 x1000/uL (4.5-11.0)
[2024-04-30 17:09] LABS: CHLORIDE 107 mEq/L (98-107); POTASSIUM 4.9 mEq/L (3.5-5.1); SODIUM 138 mEq/L (136-145)
[2024-04-30 17:10] LABS: CALCIUM 9.9 mg/dL (8.7-10.4); CARBON DIOXIDE 20 mEq/L (21-32)
[2024-04-30 17:15] LABS: CREATININE 0.8 mg/dL (0.6-1.0); GLUCOSE 192 mg/dL (70-105); UREA NITROGEN BLOOD 7 mg/dL (9-23)
[2024-04-30] MEDS ORDERED: SODIUM PHOSPHATE 15 MMOL in SODIUM CHLORIDE 0.9% 245 ML IV PRN (17:15)
[2024-04-30] MEDS ORDERED: KCL 20MEQ/100ML PREMIX 100 ML IV PRN (17:15)
[2024-04-30] MEDS ORDERED: DEXTROSE 50% WATER 50ML SYRINGE IV PRN ×2 (17:15→22:00)
[2024-04-30] MEDS ORDERED: BLOOD SUGAR DIAGNOSTIC STRIP TEST PRN (17:15)
[2024-04-30] MEDS ORDERED: MAGNESIUM 2 G PREMIX 50 ML IV PRN (17:15)
[2024-04-30] MEDS ORDERED: POTASSIUM CHLORIDE 40 MEQ in SODIUM CHLORIDE 0.9% 230 ML IV PRN (17:15)
[2024-04-30 17:17] LABS: ALANINE AMINOTRANSFERASE 14 IU/L (10-49); ALBUMIN 4.8 g/dL (3.2-4.8); ASPARTATE AMINOTRANSFERASE 36 IU/L (<34); BILIRUBIN DIRECT 0.1 mg/dL (<=3.0); BILIRUBIN TOTAL 0.7 mg/dL (0.1-1.0); PROTEIN TOTAL 7.8 g/dL (6.0-8.3)
[2024-04-30 17:20] LABS: HCG SCREEN POSITIVE
[2024-04-30 17:31] LABS: BETA HYDROXYBUTYRATE 0.6 mMol/L (0.0-0.3)
[2024-04-30] MEDS: DEXT 5%/LACTATED RINGERS 1,000 ML IV SCH (17:50)
[2024-04-30] MEDS: INSULIN REGULAR 100U/100ML PMX 100 ML IV SCH (17:50)
[2024-04-30] MEDS: BLOOD SUGAR DIAGNOSTIC STRIP TEST SCH (17:51)
[2024-04-30] MEDS: LACTATED RINGERS IV STA (18:10)
[2024-04-30 18:22] LABS: BG CARBOXYHEMOGLOBIN 0.5 % (0.5-1.5); BG DEOXYHEMOGLOBIN 1.6 % (0.0-5.0); BG FRACTION INSPIRED OXYGEN 21; BG HCO3 ACT 20.6 mmol/L (21.0-28.0); BG METHEMOGLOBIN 0.3 % (0.5-1.5); BG OXYGEN SATURATION 98.4 % (94.0-98.0); BG OXYHEMOGLOBIN 97.6 % (94.0-98.0); BG PCO2 27.7 mmHg (32.0-45.0); BG PH 7.489 (7.350-7.450); BG PO2 103.9 mmHg (83.0-108.0); BG SAMPLE SITE RIGHT RADIAL; BG TOTAL HEMOGLOBIN 9.8 g/dL (12.0-16.0); BG VENT MODE ROOM AIR
[2024-04-30] MEDS: MORPHINE SULFATE 2 MG/ML INJ (NOT FOR IM USE) IV NR (18:30)
[2024-04-30 20:13] LABS: CHLORIDE 108 mEq/L (98-107); POTASSIUM 3.5 mEq/L (3.5-5.1); SODIUM 140 mEq/L (136-145)
[2024-04-30 20:14] LABS: CARBON DIOXIDE 21 mEq/L (21-32)
[2024-04-30 20:22] LABS: PHOSPHORUS 2.4 mg/dL (2.5-4.9)
[2024-04-30] MEDS: FAMOTIDINE 20MG/2ML VIAL IV ONE (21:25)
[2024-04-30] MEDS: INSULIN GLARGINE 100 UNITS/ML SUBCUT ONE (21:29)
[2024-04-30] MEDS ORDERED: DOCUSATE SODIUM 100MG CAPSULE PO PRN (22:00)
[2024-04-30] MEDS ORDERED: MAGNESIUM/ALUMINUM HYDROXIDE/SIMETHICONE 30ML UDC PO PRN (22:00)
[2024-04-30] MEDS ORDERED: IPRATROPIUM/ALBUTEROL 0.5-3(2.5)MG/3ML NEB HHN PRN (22:00)
[2024-04-30] MEDS ORDERED: CLONIDINE 0.1MG TABLET PO PRN (22:00)
[2024-04-30] MEDS ORDERED: GUAIFENESIN 200MG/10ML SUGAR FREE UDC PO PRN (22:00)
[2024-04-30] MEDS ORDERED: ACETAMINOPHEN 325MG TABLET PO PRN (22:00)
[2024-04-30] MEDS: SODIUM CHLORIDE 0.45% 1,000 ML IV SCH (22:22)
[2024-04-30] MEDS: ONDANSETRON HCL 4MG/2ML INJ IV PRN (23:28)
[2024-04-30] MEDS: DEXT 5%/0.45% NACL 1000ML 1,000 ML IV SCH (23:45)
[2024-04-30] MEDS ORDERED: NALOXONE HCL 0.4MG/ML VIAL IV PRN (23:45)
[2024-05-01 03:27] LABS: CARBON DIOXIDE 23 mEq/L (21-32); CHLORIDE 108 mEq/L (98-107); POTASSIUM 3.2 mEq/L (3.5-5.1); SODIUM 139 mEq/L (136-145)
[2024-05-01 03:28] LABS: CALCIUM 9.1 mg/dL (8.7-10.4)
[2024-05-01 03:33] LABS: CREATININE 0.7 mg/dL (0.6-1.0); GLUCOSE 105 mg/dL (70-105); UREA NITROGEN BLOOD 6 mg/dL (9-23)
[2024-05-01 03:35] LABS: ALANINE AMINOTRANSFERASE 9 IU/L (10-49); ALBUMIN 4.2 g/dL (3.2-4.8); ASPARTATE AMINOTRANSFERASE 10 IU/L (<34); BILIRUBIN DIRECT 0.2 mg/dL (<=3.0); BILIRUBIN TOTAL 0.8 mg/dL (0.1-1.0); PROTEIN TOTAL 6.6 g/dL (6.0-8.3)
[2024-05-01] MEDS: BLOOD SUGAR DIAGNOSTIC STRIP TEST SCH (07:08)
[2024-05-01 07:13] VITALS: BP 113/74; RESP 18; TEMP 36.72516; O2SAT 97
[2024-05-01] MEDS: INSULIN LISPRO 100 UNITS/ML SUBCUT SCH (07:15)
[2024-05-01] MEDS: PANTOPRAZOLE SODIUM 40 MG/VIAL IV SCH (09:00)
[2024-05-01] MEDS: ENOXAPARIN 40MG/0.4ML SYR SUBCUT SCH (09:00)
[2024-05-01] MEDS: MORPHINE SULFATE 2 MG/ML INJ (NOT FOR IM USE) IV PRN (09:02)
[2024-05-01 10:54] LABS: BASOPHILS % 0.7 % (0.0-2.0); DIFFERENTIAL COMMENT 0; EOSINOPHILS % 0.5 % (0.0-5.0); HEMATOCRIT. 26.6 % (36.0-48.0); HEMOGLOBIN. 8.6 g/dL (12.0-16.0); LYMPHOCYTES % 34.3 % (20.0-50.0); MEAN CORPUSCULAR HEMOGLOBIN 24.3 pg (28.0-32.0); MEAN CORPUSCULAR HGB CONC 32.3 g/dL (31.0-37.0); MEAN CORPUSCULAR VOLUME 75.1 fL (81.0-99.0); MEAN PLATELET VOLUME 8.3 fl (7.4-10.4); MONOCYTES % 8.9 % (2.0-8.0); NEUTROPHILS % 55.6 % (40.0-76.0); PLATELET 373 x1000/uL (130-400); RED BLOOD CELL COUNT 3.54 mill/uL (4.2-5.4); RED CELL DISTRIBUTION WIDTH 20.4 % (11.6-14.6); WHITE BLOOD COUNT 7.1 x1000/uL (4.5-11.0)
[2024-05-01 10:57] LABS: CALCIUM 8.8 mg/dL (8.7-10.4); CARBON DIOXIDE 23 mEq/L (21-32); CHLORIDE 106 mEq/L (98-107); POTASSIUM 3.5 mEq/L (3.5-5.1); SODIUM 136 mEq/L (136-145)
[2024-05-01 11:02] LABS: CREATININE 0.7 mg/dL (0.6-1.0); GLUCOSE 110 mg/dL (70-105)
[2024-05-01 11:03] LABS: LDL CHOLESTEROL 89 mg/dL (5-100); TRIGLYCERIDE 81 mg/dL (0-150); UREA NITROGEN BLOOD 6 mg/dL (9-23)
[2024-05-01 11:04] LABS: CHOLESTEROL 159 mg/dL (<200); HDL CHOLESTEROL 60 mg/dL (>65)
[2024-05-01 11:07] LABS: T4 FREE 1.37 ng/dL (0.89-1.76); THYROID STIMULATING HORMONE 0.13 uIU/mL (0.55-4.78)
[2024-05-01] MEDS: KCL 20MEQ/100ML PREMIX 100 ML IV NR (11:26)
[2024-05-01 14:00] VITALS: BP 120/60; PULSE 102; RESP 18; TEMP 36.418
[2024-05-01] MEDS: ACETAMINOPHEN 325MG TABLET PO PRN (14:53)
[2024-05-01 20:00] VITALS: BP 116/70; PULSE 74; RESP 18; TEMP 37.00296
[2024-05-02] VITALS: BP 110/72; PULSE 72; RESP 18; TEMP 36.89184
[2024-05-02 04:00] VITALS: BP 158/98; PULSE 95; RESP 18; TEMP 36.61404
[2024-05-02 07:36] LABS: CALCIUM 9.2 mg/dL (8.7-10.4); CARBON DIOXIDE 22 mEq/L (21-32); CHLORIDE 105 mEq/L (98-107); SODIUM 135 mEq/L (136-145)
[2024-05-02 07:38] LABS: BASOPHILS % 0.5 % (0.0-2.0); DIFFERENTIAL COMMENT 0; EOSINOPHILS % 0.4 % (0.0-5.0); HEMATOCRIT. 33.6 % (36.0-48.0); HEMOGLOBIN. 10.3 g/dL (12.0-16.0); LYMPHOCYTES % 47.7 % (20.0-50.0); MEAN CORPUSCULAR HEMOGLOBIN 23.8 pg (28.0-32.0); MEAN CORPUSCULAR HGB CONC 30.7 g/dL (31.0-37.0); MEAN CORPUSCULAR VOLUME 77.7 fL (81.0-99.0); MEAN PLATELET VOLUME 8.1 fl (7.4-10.4); NEUTROPHILS % 43.4 % (40.0-76.0); PLATELET 386 x1000/uL (130-400); RED BLOOD CELL COUNT 4.32 mill/uL (4.2-5.4); RED CELL DISTRIBUTION WIDTH 20.2 % (11.6-14.6); WHITE BLOOD COUNT 7.6 x1000/uL (4.5-11.0)
[2024-05-02 07:41] LABS: CREATININE 0.8 mg/dL (0.6-1.0)
[2024-05-02 07:42] LABS: GLUCOSE 121 mg/dL (70-105); UREA NITROGEN BLOOD 7 mg/dL (9-23)
[2024-05-02 08:00] VITALS: BP 134/76; PULSE 101; RESP 18; TEMP 36.55848; O2SAT 99
[2024-05-02] MEDS ORDERED: ONDA-239 PO (10:21)
[2024-05-02] MEDS ORDERED: TOPUD PO (10:21)
[2024-05-02 11:21] VITALS: BP 134/76; PULSE 101; TEMP 97.8; O2SAT 99
[2024-05-02 12:00] VITALS: BP 110/69; PULSE 90; RESP 18; TEMP 36.50292; O2SAT 98
== END 2024-05-02 12:10 | disposition home or self-care (01) | DRG 566 ==
LOC: ER 15:37 → EDBEDREQTM 20:21 → EDBEDREQ 20:21 → 5WST 21:12 → EDBEDREQTM 21:19 → EDBEDREQSVC 21:19 → 5WST 05-01 06:19 → 8WST 05-01 13:47
PROVIDERS: ADMIT Internal Medicine; ATTEND Internal Medicine
DX: O21.0 Mild hyperemesis gravidarum (principal); E11.10 Type 2 diabetes mellitus with ketoacidosis without coma; E11.43 Type 2 diabetes mellitus with diabetic autonomic (poly)neuropathy; E83.39 Other disorders of phosphorus metabolism; O23.41 Unspecified infection of urinary tract in pregnancy, first trimester; O24.111 Pre-existing type 2 diabetes mellitus, in pregnancy, first trimester; D50.9 Iron deficiency anemia, unspecified; E83.42 Hypomagnesemia; N39.0 Urinary tract infection, site not specified; O99.011 Anemia complicating pregnancy, first trimester; O99.281 Endocrine, nutritional and metabolic diseases complicating pregnancy, first trimester; Z3A.09 9 weeks gestation of pregnancy; Z79.4 Long term (current) use of insulin
CPT/HCPCS: 36415; 36600; 76700; 76801; 80048; 80051; 80061; 80076; 82010; 82375; 82803; 82805; 82962; 83036; 83735; 83930; 84100; 84439; 84443; 84481; 84702; 84703; 85025; 86850; 86900; 99291; J1650; J1815; J2270; J2405; J2470; J3480; J3490; Q0162

== ENCOUNTER 2024-09-10 07:27 | Emergency (ER) | payer MEDICAID ==
[~2024-09-10] VITALS: Ht 170.2 cm; Wt 80.0 kg
[~2024-09-10 07:27] MED LIST changes: -LIP40 MT; +METO-293 MT; -METO-293 PO
[2024-09-10 07:30] VITALS: TEMP 36.9; O2SAT 99
[2024-09-10] MEDS: MORPHINE SULFATE 4 MG/ML INJ (FOR IV/IM USE) IV STA (08:05)
[2024-09-10] MEDS: ONDANSETRON HCL 4MG/2ML INJ IV STA (08:07)
[2024-09-10] MEDS: SODIUM CHLORIDE 0.9% 1,000 ML IV ONE ×2 (08:07→10:40)
[2024-09-10 08:53] LABS: BG BASE EXCESS -1.6 mmol/L (-2.0-3.0); BG CARBOXYHEMOGLOBIN 0.3 % (0.5-1.5); BG DEOXYHEMOGLOBIN 1.1 % (0.0-5.0); BG FRACTION INSPIRED OXYGEN 21; BG HCO3 ACT 18.1 mmol/L (21.0-28.0); BG OXYGEN SATURATION 98.9 % (94.0-98.0); BG OXYHEMOGLOBIN 98.6 % (94.0-98.0); BG PH 7.596 (7.350-7.450); BG PO2 114.4 mmHg (83.0-108.0); BG SAMPLE SITE LEFT RADIAL; BG TOTAL HEMOGLOBIN 11.9 g/dL (12.0-16.0); BG VENT MODE ROOM AIR
[2024-09-10 08:57] LABS: BASOPHILS % 0.4 % (0.0-2.0); EOSINOPHILS % 0.1 % (0.0-5.0); HEMATOCRIT. 41.2 % (36.0-48.0); HEMOGLOBIN. 12.9 g/dL (12.0-16.0); LYMPHOCYTES % 13.3 % (20.0-50.0); MEAN CORPUSCULAR HEMOGLOBIN 26.4 pg (28.0-32.0); MEAN CORPUSCULAR HGB CONC 31.3 g/dL (31.0-37.0); MEAN CORPUSCULAR VOLUME 84.3 fL (81.0-99.0); MEAN PLATELET VOLUME 9.1 fl (7.4-10.4); MONOCYTES % 2.2 % (2.0-8.0); PLATELET 426 x1000/uL (130-400); RED BLOOD CELL COUNT 4.89 mill/uL (4.2-5.4); WHITE BLOOD COUNT 8.7 x1000/uL (4.5-11.0)
[2024-09-10 09:16] LABS: CHLORIDE 106 mEq/L (98-107); POTASSIUM 3.4 mEq/L (3.5-5.1); SODIUM 140 mEq/L (136-145)
[2024-09-10 09:17] LABS: CALCIUM 9.7 mg/dL (8.7-10.4); CARBON DIOXIDE 19 mEq/L (21-32)
[2024-09-10 09:19] LABS: TROPONIN I HIGH SENSITIVITY < 4 ng/L (3.0-34)
[2024-09-10 09:22] LABS: GLUCOSE 349 mg/dL (70-105)
[2024-09-10 09:34] LABS: UREA NITROGEN BLOOD 10 mg/dL (9-23)
[2024-09-10 10:00] LABS: BETA HYDROXYBUTYRATE 2.3 mMol/L (0.0-0.3)
[2024-09-10] MEDS ORDERED: KCL 20MEQ/100ML PREMIX 100 ML IV PRN ×2 (10:15→12:30)
[2024-09-10] MEDS ORDERED: MAGNESIUM 2 G PREMIX 50 ML IV PRN ×2 (10:15→12:30)
[2024-09-10] MEDS ORDERED: POTASSIUM CHLORIDE 40 MEQ in SODIUM CHLORIDE 0.9% 230 ML IV PRN ×2 (10:15→12:30)
[2024-09-10] MEDS: DEXT 5%/0.9% NACL 1,000 ML IV SCH ×2 (10:15→14:50)
[2024-09-10] MEDS ORDERED: BLOOD SUGAR DIAGNOSTIC STRIP TEST PRN ×2 (10:15→12:30)
[2024-09-10] MEDS ORDERED: SODIUM PHOSPHATE 15 MMOL in SODIUM CHLORIDE 0.9% 245 ML IV PRN ×2 (10:15→12:30)
[2024-09-10] MEDS ORDERED: INSULIN REGULAR (DRIP) 100 UNITS in SODIUM CHLORIDE 0.9% 99 ML IV SCH ×2 (10:15→12:30)
[2024-09-10] MEDS ORDERED: DEXTROSE 50% WATER 50ML SYRINGE IV PRN ×2 (10:15→12:30)
[2024-09-10] MEDS: BLOOD SUGAR DIAGNOSTIC STRIP TEST SCH ×2 (10:21→12:57)
[2024-09-10] MEDS: SODIUM CHLORIDE 0.9% 1,000 ML IV SCH ×2 (10:47→14:50)
[2024-09-10] MEDS: INSULIN REGULAR 100U/100ML PMX 100 ML IV SCH (10:47)
[2024-09-10 11:16] LABS: CHLORIDE 108 mEq/L (98-107); POTASSIUM 3.5 mEq/L (3.5-5.1); SODIUM 140 mEq/L (136-145)
[2024-09-10 11:17] LABS: CALCIUM 8.4 mg/dL (8.7-10.4); CARBON DIOXIDE 20 mEq/L (21-32)
[2024-09-10 11:22] LABS: CREATININE 0.9 mg/dL (0.6-1.0); GLUCOSE 277 mg/dL (70-105); UREA NITROGEN BLOOD 9 mg/dL (9-23)
[2024-09-10 11:24] LABS: PHOSPHORUS 1.8 mg/dL (2.5-4.9)
[2024-09-10] MEDS ORDERED: ACETAMINOPHEN 325MG TABLET PO PRN (12:30)
[2024-09-10] MEDS ORDERED: IPRATROPIUM/ALBUTEROL 0.5-3(2.5)MG/3ML NEB HHN PRN (12:30)
[2024-09-10] MEDS ORDERED: ONDANSETRON HCL 4MG/2ML INJ IV PRN (12:30)
[2024-09-10] MEDS ORDERED: DOCUSATE SODIUM 100MG CAPSULE PO PRN (12:30)
[2024-09-10] MEDS ORDERED: CLONIDINE 0.1MG TABLET PO PRN (12:30)
[2024-09-10] MEDS ORDERED: MAGNESIUM/ALUMINUM HYDROXIDE/SIMETHICONE 30ML UDC PO PRN (12:30)
[2024-09-10] MEDS ORDERED: GUAIFENESIN 200MG/10ML SUGAR FREE UDC PO PRN (12:30)
[2024-09-10 13:16] VITALS: TEMP 98.4
[2024-09-10] MEDS: ACETAMINOPHEN 325MG TABLET PO PRN (13:16)
[2024-09-10 14:15] LABS: BG BASE EXCESS -2.4 mmol/L (-2.0-3.0); BG CARBOXYHEMOGLOBIN 0.7 % (0.5-1.5); BG DEOXYHEMOGLOBIN 0.9 % (0.0-5.0); BG FRACTION INSPIRED OXYGEN 21; BG HCO3 ACT 18.1 mmol/L (21.0-28.0); BG METHEMOGLOBIN 0.3 % (0.5-1.5); BG OXYGEN SATURATION 99.1 % (94.0-98.0); BG OXYHEMOGLOBIN 98.1 % (94.0-98.0); BG PCO2 20.9 mmHg (32.0-45.0); BG PH 7.556 (7.350-7.450); BG PO2 120.7 mmHg (83.0-108.0); BG SAMPLE SITE RIGHT RADIAL; BG TOTAL HEMOGLOBIN 11.8 g/dL (12.0-16.0); BG VENT MODE ROOM AIR
[2024-09-10] MEDS: KETOROLAC 15MG/ML VIAL IV PRN (14:55)
[2024-09-10 16:26] LABS: CHLORIDE 105 mEq/L (98-107); SODIUM 138 mEq/L (136-145)
[2024-09-10 16:27] LABS: CARBON DIOXIDE 22 mEq/L (21-32)
[2024-09-10 16:30] LABS: HCG SCREEN NEGATIVE
[2024-09-10 17:07] LABS: POTASSIUM 2.5 mEq/L (3.5-5.1)
[2024-09-10] MEDS: PANTOPRAZOLE SODIUM 40 MG/VIAL IV SCH (18:45)
[2024-09-10] MEDS: TRAMADOL 50MG TABLET PO NR (19:01)
[2024-09-10] MEDS: KCL 20MEQ/100ML X 2 FOR TOTAL KCL 40MEQ/200ML IV SCH (19:02)
[2024-09-10] MEDS: MORPHINE SULFATE 2 MG/ML INJ (NOT FOR IM USE) IV NR (19:02)
[2024-09-10 20:00] VITALS: BP 111/60; PULSE 96; RESP 21; O2SAT 99
[2024-09-10 20:20] LABS: CHLORIDE 105 mEq/L (98-107); POTASSIUM 3.4 mEq/L (3.5-5.1); SODIUM 135 mEq/L (136-145)
[2024-09-10 20:21] LABS: CARBON DIOXIDE 23 mEq/L (21-32)
[2024-09-10 20:28] LABS: PHOSPHORUS 1.5 mg/dL (2.5-4.9)
[2024-09-10] MEDS ORDERED: POTASSIUM PHOSPHATE 20 MMOL in DEXT 5% WATER 243.3333 ML IV NR (21:00)
[2024-09-10] MEDS ORDERED: MAGNESIUM 2 G PREMIX 50 ML IV NR (21:00)
== END 2024-09-10 21:16 | disposition left against medical advice (07) ==
LOC: ER 07:27 → EDBEDREQ 11:14 → EDBEDREQSVC 11:14 → EDBEDREQTM 11:14 → ER 21:16
DX: E10.10 Type 1 diabetes mellitus with ketoacidosis without coma (principal); K21.9 Gastro-esophageal reflux disease without esophagitis; Z79.4 Long term (current) use of insulin; Z79.899 Other long term (current) drug therapy
CPT/HCPCS: 80051; 80048; 82010; 82962; 84703; 83735; 83930; 84100; 85025; 87040; 84484; 87077; 36415; 71045 ×2; 36573; 82805; 82375; 93005; 96361; 96365; 96375; 99291; 36600; J1815; J1885; J2405; J3480; J2270 ×2; J7042; J7030; Z7610 ×5; C1887; C1725; C1769; A4606; J3490; J7060

== ENCOUNTER 2024-10-07 03:47 | Inpatient (IN) | payer MEDICAID ==
[~2024-10-07] VITALS: Ht 170.2 cm; Wt 71.9 kg
[2024-10-07 03:56] VITALS: O2SAT 100
[2024-10-07] MEDS: PANTOPRAZOLE 80 MG in SODIUM CHLORIDE 0.9% 80 ML IV ONE (04:00)
[2024-10-07 04:44] LABS: BASOPHILS % 0.2 % (0.0-2.0); EOSINOPHILS % 1.6 % (0.0-5.0); HEMATOCRIT. 37.2 % (36.0-48.0); LYMPHOCYTES % 28.4 % (20.0-50.0); MEAN CORPUSCULAR HEMOGLOBIN 26.3 pg (28.0-32.0); MEAN CORPUSCULAR HGB CONC 32.2 g/dL (31.0-37.0); MEAN CORPUSCULAR VOLUME 81.6 fL (81.0-99.0); MEAN PLATELET VOLUME 8.6 fl (7.4-10.4); MONOCYTES % 4.7 % (2.0-8.0); NEUTROPHILS % 65.1 % (40.0-76.0); PLATELET 415 x1000/uL (130-400); RED BLOOD CELL COUNT 4.56 mill/uL (4.2-5.4); RED CELL DISTRIBUTION WIDTH 15.5 % (11.6-14.6); WHITE BLOOD COUNT 8.2 x1000/uL (4.5-11.0)
[2024-10-07] MEDS: MAGNESIUM/ALUMINUM HYDROXIDE/SIMETHICONE 30ML UDC PO STA (04:46)
[2024-10-07 04:55] LABS: CARBON DIOXIDE 28 mEq/L (21-32); CHLORIDE 102 mEq/L (98-107); POTASSIUM 4.3 mEq/L (3.5-5.1); SODIUM 136 mEq/L (136-145)
[2024-10-07 04:56] LABS: CALCIUM 9.6 mg/dL (8.7-10.4)
[2024-10-07 05:01] LABS: GLUCOSE 367 mg/dL (70-105); UREA NITROGEN BLOOD 16 mg/dL (9-23)
[2024-10-07 05:03] LABS: ALANINE AMINOTRANSFERASE 14 IU/L (10-49); ALBUMIN 4.5 g/dL (3.2-4.8); ASPARTATE AMINOTRANSFERASE 14 IU/L (<34); BILIRUBIN DIRECT 0.1 mg/dL (<=3.0); BILIRUBIN TOTAL 0.6 mg/dL (0.1-1.0); PROTEIN TOTAL 7.9 g/dL (6.0-8.3)
[2024-10-07 05:04] LABS: ETHANOL BLOOD < 10 mg/dL (<10)
[2024-10-07 05:16] LABS: HCG SCREEN NEGATIVE
[2024-10-07] MEDS: SODIUM CHLORIDE 0.9% 1,000 ML IV ONE (05:16)
[2024-10-07] MEDS: ACETAMINOPHEN 1000MG/100ML 100 ML IV ONE (05:16)
[2024-10-07] MEDS: ONDANSETRON HCL 4MG/2ML INJ IV NR (05:16)
[2024-10-07] MEDS: MORPHINE SULFATE 4 MG/ML INJ (FOR IV/IM USE) IV NR (05:16)
[2024-10-07] MEDS: MAGNESIUM/ALUMINUM HYDROXIDE/SIMETHICONE 30ML UDC PO NR (05:19)
[2024-10-07 05:30] LABS: BETA HYDROXYBUTYRATE 0.3 mMol/L (0.0-0.3)
[2024-10-07 05:40] LABS: PROTHROMBIN TIME 10.5 sec (9.6-11.0)
[2024-10-07] MEDS: INSULIN REGULAR (HUMULIN R) 1000UNITS/10ML VIAL SUBCUT NR (06:46)
[2024-10-07] MEDS: HALOPERIDOL LACTATE 5MG/ML VIAL IM ONE (08:04)
[2024-10-07 09:54] LABS: CLARITY URINE CLEAR (CLEAR); COLOR URINE YELLOW (YELLOW); GLUCOSE URINE 3+ (NEGATIVE); KETONES URINE 1+ (NEGATIVE); LEUKOCYTE ESTERASE URINE NEGATIVE (NEGATIVE); NITRITE URINE NEGATIVE (NEGATIVE); OCCULT BLOOD URINE 3+ (NEGATIVE); PROTEIN URINE NEGATIVE (NEGATIVE); SPECIFIC GRAVITY URINE 1.034 (1.005-1.030); UROBILINOGEN URINE 0.2 E.U./dL (0.2-1.0)
[2024-10-07 10:01] VITALS: BP 169/100; PULSE 86; RESP 18; TEMP 36.4
[2024-10-07 10:10] LABS: *AMPHETAMINES SCREEN URINE NEGATIVE (NEGATIVE); *BARBITURATES SCREEN URINE NEGATIVE (NEGATIVE); *BENZODIAZEPINES SCREEN URINE NEGATIVE (NEGATIVE); *COCAINE SCREEN URINE NEGATIVE (NEGATIVE); METHADONE URINE SCREEN NEGATIVE (NEGATIVE); OPIATES URINE SCREEN PRESUMPTIVE POSITIVE (NEGATIVE); PHENCYCLIDINE URINE SCREEN NEGATIVE (NEGATIVE)
[2024-10-07 10:11] LABS: CANNABINOID URINE SCREEN PRESUMPTIVE POSITIVE (NEGATIVE); ECSTASY MDMA SCREEN URINE NEGATIVE (NEGATIVE)
[2024-10-07] MEDS ORDERED: DOCUSATE SODIUM 100MG CAPSULE PO PRN (10:30)
[2024-10-07] MEDS ORDERED: ACETAMINOPHEN 325MG TABLET PO PRN ×2 (10:30)
[2024-10-07] MEDS ORDERED: DEXTROSE 50% WATER 50ML SYRINGE IV PRN (10:30)
[2024-10-07] MEDS ORDERED: IPRATROPIUM/ALBUTEROL 0.5-3(2.5)MG/3ML NEB HHN PRN (10:30)
[2024-10-07] MEDS: CLONIDINE 0.1MG TABLET PO PRN (10:56)
[2024-10-07] MEDS: KETOROLAC 30MG/ML VIAL IV PRN (10:57)
[2024-10-07] MEDS: PANTOPRAZOLE SODIUM 40 MG/VIAL IV SCH (10:57)
[2024-10-07 11:03] LABS: RBC URINE 50-100 /hpf (0-2); SQUAMOUS EPITHELIAL CELL URINE 1+ /lpf (RARE/1+)
[2024-10-07 11:04] LABS: BACTERIA URINE TRACE
[2024-10-07 11:05] LABS: WBC URINE 0-2 /hpf (0-2)
[2024-10-07 12:00] VITALS: BP 146/87; PULSE 80; RESP 19; TEMP 36.1; O2SAT 98
[2024-10-07] MEDS: BLOOD SUGAR DIAGNOSTIC STRIP TEST SCH (13:00)
[2024-10-07 13:03] LABS: BETA HYDROXYBUTYRATE 1.1 mMol/L (0.0-0.3)
[2024-10-07] MEDS: HYDRALAZINE HCL 25MG TABLET PO SCH (14:00)
[2024-10-07] MEDS: INSULIN LISPRO 100 UNITS/ML SUBCUT SCH (14:01)
[2024-10-07] MEDS: ONDANSETRON HCL 4MG/2ML INJ IV PRN (14:30)
[2024-10-07] MEDS: METOCLOPRAMIDE HCL 10MG/2ML VIAL IV SCH (17:32)
[2024-10-07] MEDS: MORPHINE SULFATE 2 MG/ML INJ (NOT FOR IM USE) IV NR (19:10)
[2024-10-07 20:00] VITALS: BP 93/59; PULSE 77; RESP 16; TEMP 36.8; O2SAT 100
[2024-10-08 04:00] VITALS: BP 91/58; PULSE 91; RESP 17; TEMP 36.3; O2SAT 97
[2024-10-08 08:00] VITALS: BP 96/53; PULSE 102; RESP 18; TEMP 36.5; O2SAT 99
[2024-10-08 08:37] LABS: INR 1.1; PROTHROMBIN TIME 11.4 sec (9.6-11.0)
[2024-10-08 08:42] LABS: CARBON DIOXIDE 24 mEq/L (21-32); CHLORIDE 100 mEq/L (98-107); POTASSIUM 3.4 mEq/L (3.5-5.1); SODIUM 137 mEq/L (136-145)
[2024-10-08 08:43] LABS: CALCIUM 10.4 mg/dL (8.7-10.4)
[2024-10-08 08:47] LABS: CREATININE 1.2 mg/dL (0.6-1.0)
[2024-10-08 08:48] LABS: ALANINE AMINOTRANSFERASE 18 IU/L (10-49); GLUCOSE 250 mg/dL (70-105); UREA NITROGEN BLOOD 20 mg/dL (9-23)
[2024-10-08 08:49] LABS: ALBUMIN 5.1 g/dL (3.2-4.8); ASPARTATE AMINOTRANSFERASE 20 IU/L (<34)
[2024-10-08 08:50] LABS: BILIRUBIN DIRECT 0.4 mg/dL (<=3.0); BILIRUBIN TOTAL 1.6 mg/dL (0.1-1.0); PHOSPHORUS 3.2 mg/dL (2.5-4.9); PROTEIN TOTAL 9.1 g/dL (6.0-8.3)
[2024-10-08] MEDS: MIDODRINE HCL 5MG TABLET PO SCH (10:45)
[2024-10-08 12:00] VITALS: BP 125/70; PULSE 96; RESP 18; TEMP 36.2; O2SAT 97
[2024-10-08 12:11] LABS: BASOPHILS % 0.6 % (0.0-2.0); EOSINOPHILS % 0.3 % (0.0-5.0); HEMATOCRIT. 35.9 % (36.0-48.0); HEMOGLOBIN. 11.3 g/dL (12.0-16.0); LYMPHOCYTES % 31.5 % (20.0-50.0); MEAN CORPUSCULAR HEMOGLOBIN 25.1 pg (28.0-32.0); MEAN CORPUSCULAR HGB CONC 31.4 g/dL (31.0-37.0); MEAN PLATELET VOLUME 9.1 fl (7.4-10.4); MONOCYTES % 7.7 % (2.0-8.0); NEUTROPHILS % 59.9 % (40.0-76.0); PLATELET 372 x1000/uL (130-400); RED BLOOD CELL COUNT 4.49 mill/uL (4.2-5.4)
[2024-10-08] MEDS: POTASSIUM CHLORIDE 20MEQ TABLET SR PO NR (12:42)
[2024-10-08] MEDS: INSULIN LISPRO 100 UNITS/ML SUBCUT SCH (12:49)
== END 2024-10-08 15:23 | disposition left against medical advice (07) | DRG 48 ==
LOC: ER 03:51 → 6EST 08:31
PROVIDERS: ADMIT Internal Medicine; ATTEND Internal Medicine
DX: E10.43 Type 1 diabetes mellitus with diabetic autonomic (poly)neuropathy (principal); E10.65 Type 1 diabetes mellitus with hyperglycemia; K31.84 Gastroparesis; F12.90 Cannabis use, unspecified, uncomplicated; F17.210 Nicotine dependence, cigarettes, uncomplicated; K21.9 Gastro-esophageal reflux disease without esophagitis; F41.9 Anxiety disorder, unspecified; Z53.29 Procedure and treatment not carried out because of patient's decision for other reasons; Z79.4 Long term (current) use of insulin
CPT/HCPCS: 36415; 74176; 80048; 80076; 80305; 80320; 81003; 82010; 82550; 82962; 83036; 83605; 83735; 84100; 84703; 85025; 99285; A4606; J1630; J1815; J1885; J2270; J2405; J2470; J2765; J7030; J7050; G0480; J0131

== ENCOUNTER 2025-05-15 07:40 | Emergency (ER) | payer MEDICAID ==
[~2025-05-15] VITALS: Ht 170.2 cm; Wt 75.0 kg
[~2025-05-15 07:40] MED LIST changes: +OXYC-100 MT
[2025-05-15 07:42] VITALS: O2SAT 97
[2025-05-15 08:00] VITALS: TEMP 36.8
[2025-05-15 08:35] LABS: BASOPHILS % 0.6 % (0.0-2.0); CREATININE 1.1 mg/dL (0.6-1.0); EOSINOPHILS % 0.4 % (0.0-5.0); HEMATOCRIT. 36.9 % (36.0-48.0); HEMOGLOBIN. 11.5 g/dL (12.0-16.0); LYMPHOCYTES % 22.0 % (20.0-50.0); MEAN PLATELET VOLUME 8.9 fl (7.4-10.4); MONOCYTES % 4.0 % (2.0-8.0); NEUTROPHILS % 73.0 % (40.0-76.0); PLATELET 421 x1000/uL (130-400); RED BLOOD CELL COUNT 4.79 mill/uL (4.2-5.4); RED CELL DISTRIBUTION WIDTH 16.9 % (11.6-14.6); UREA NITROGEN BLOOD 15 mg/dL (9-23)
[2025-05-15] MEDS: SODIUM CHLORIDE 0.9% 1,000 ML IV ONE (08:38)
[2025-05-15] MEDS: KETOROLAC 15MG/ML VIAL IV ONE (08:47)
[2025-05-15] MEDS: HALOPERIDOL LACTATE 5MG/ML VIAL IM ONE (08:47)
[2025-05-15 09:01] LABS: CLARITY URINE CLEAR (CLEAR); COLOR URINE YELLOW (YELLOW); GLUCOSE URINE 3+ (NEGATIVE); KETONES URINE 1+ (NEGATIVE); LEUKOCYTE ESTERASE URINE NEGATIVE (NEGATIVE); NITRITE URINE NEGATIVE (NEGATIVE); OCCULT BLOOD URINE NEGATIVE (NEGATIVE); PH URINE 5.5 (4.5-8.0); PROTEIN URINE NEGATIVE (NEGATIVE); SPECIFIC GRAVITY URINE 1.036 (1.005-1.030); UROBILINOGEN URINE 0.2 E.U./dL (0.2-1.0)
[2025-05-15 09:10] LABS: *AMPHETAMINES SCREEN URINE NEGATIVE (NEGATIVE); *BARBITURATES SCREEN URINE NEGATIVE (NEGATIVE); *BENZODIAZEPINES SCREEN URINE NEGATIVE (NEGATIVE); *COCAINE SCREEN URINE NEGATIVE (NEGATIVE); CANNABINOID URINE SCREEN PRESUMPTIVE POSITIVE (NEGATIVE); ECSTASY MDMA SCREEN URINE NEGATIVE (NEGATIVE); METHADONE URINE SCREEN NEGATIVE (NEGATIVE); OPIATES URINE SCREEN NEGATIVE (NEGATIVE); PHENCYCLIDINE URINE SCREEN NEGATIVE (NEGATIVE)
[2025-05-15 09:26] LABS: ASPARTATE AMINOTRANSFERASE 23 IU/L (<34); BILIRUBIN DIRECT 0.1 mg/dL (<=3.0); BILIRUBIN TOTAL 0.6 mg/dL (0.1-1.0); PROTEIN TOTAL 8.0 g/dL (6.0-8.3)
[2025-05-15 09:27] LABS: SQUAMOUS EPITHELIAL CELL URINE 1+ /lpf (RARE/1+)
[2025-05-15 09:28] LABS: BACTERIA URINE TRACE
[2025-05-15 09:29] LABS: RBC URINE NONE SEEN /hpf (0-2); WBC URINE 0-2 /hpf (0-2); YEAST URINE RARE
[2025-05-15] MEDS: METOCLOPRAMIDE HCL 10MG/2ML VIAL IV ONE (10:02)
[2025-05-15 10:12] LABS: HCG SCREEN NEGATIVE
[2025-05-15 10:42] VITALS: BP 154/96; PULSE 99; RESP 16; O2SAT 99
== END 2025-05-15 11:12 | disposition home or self-care (01) ==
LOC: ER 07:50
DX: F12.90 Cannabis use, unspecified, uncomplicated (principal); R11.2 Nausea with vomiting, unspecified; E11.65 Type 2 diabetes mellitus with hyperglycemia; Z79.899 Other long term (current) drug therapy
CPT/HCPCS: 80076; 80305; 80048; 81003; 80320; 82962; 84703; 83690; 83735; 85025; 36415; 93005; 96361; 96372; 96374; 96375; 99284; J1630; J1885; J2765; J7030; Z7610; A4606; G0480

== ENCOUNTER 2025-06-15 12:26 | Inpatient (IN) | payer MEDICAID ==
[~2025-06-15] VITALS: Ht 162.6 cm; Wt 78.0 kg
[2025-06-15 12:32] VITALS: O2SAT 99
[2025-06-15] MEDS: SODIUM CHLORIDE 0.9% 1,000 ML IV ONE ×4 (13:00→20:46)
[2025-06-15 13:21] LABS: BG BASE EXCESS -9.2 mmol/L (-2.0-3.0); BG CARBOXYHEMOGLOBIN 1.3 % (0.5-1.5); BG DEOXYHEMOGLOBIN 1.1 % (0.0-5.0); BG FRACTION INSPIRED OXYGEN 21; BG HCO3 ACT 11.7 mmol/L (21.0-28.0); BG METHEMOGLOBIN 0.3 % (0.5-1.5); BG OXYGEN SATURATION 98.9 % (94.0-98.0); BG OXYHEMOGLOBIN 97.3 % (94.0-98.0); BG PCO2 16.1 mmHg (32.0-45.0); BG PH 7.481 (7.350-7.450); BG PO2 117.3 mmHg (83.0-108.0); BG SAMPLE SITE RIGHT BRACHIAL; BG TOTAL HEMOGLOBIN 12.1 g/dL (12.0-16.0); BG VENT MODE ROOM AIR
[2025-06-15] MEDS: HYDROMORPHONE HCL/PF 2MG/ML INJ IV ONE (13:25)
[2025-06-15 15:32] LABS: BASOPHILS % 1.0 % (0.0-2.0); EOSINOPHILS % 0.0 % (0.0-5.0); HEMATOCRIT. 34.5 % (36.0-48.0); HEMOGLOBIN. 10.2 g/dL (12.0-16.0); LYMPHOCYTES % 14.7 % (20.0-50.0); MEAN PLATELET VOLUME 8.1 fl (7.4-10.4); MONOCYTES % 2.2 % (2.0-8.0); NEUTROPHILS % 82.1 % (40.0-76.0); PLATELET 454 x1000/uL (130-400); RED BLOOD CELL COUNT 4.30 mill/uL (4.2-5.4); RED CELL DISTRIBUTION WIDTH 17.1 % (11.6-14.6)
[2025-06-15 15:54] LABS: UREA NITROGEN BLOOD 16 mg/dL (9-23)
[2025-06-15 15:55] LABS: CREATININE 1.3 mg/dL (0.6-1.0); TROPONIN I HIGH SENSITIVITY < 4 ng/L (3.0-34)
[2025-06-15 15:56] LABS: ASPARTATE AMINOTRANSFERASE 12 IU/L (<34); B-HCG QUANTITATIVE < 1 mIU/mL (<6); BILIRUBIN DIRECT 0.2 mg/dL (<=3.0); BILIRUBIN TOTAL 0.7 mg/dL (0.1-1.0)
[2025-06-15 15:57] LABS: PROTEIN TOTAL 7.3 g/dL (6.0-8.3)
[2025-06-15] MEDS: INSULIN REGULAR (HUMULIN R) 1000UNITS/10ML VIAL IV ONE ×2 (16:34→16:45)
[2025-06-15] MEDS: INSULIN REGULAR (HUMULIN R) 1000UNITS/10ML VIAL SUBCUT ONE (16:45)
[2025-06-15] MEDS: POTASSIUM CHLORIDE 20MEQ/PACKET PO ONE (17:04)
[2025-06-15] MEDS: SODIUM CHLORIDE 0.45% 500 ML IV ONE (17:45)
[2025-06-15] MEDS ORDERED: GUAIFENESIN 200MG/10ML SUGAR FREE UDC PO PRN (18:15)
[2025-06-15] MEDS ORDERED: ONDANSETRON HCL 4MG/2ML INJ IV PRN (18:15)
[2025-06-15] MEDS ORDERED: DOCUSATE SODIUM 100MG CAPSULE PO PRN (18:15)
[2025-06-15 19:12] LABS: GLUCOSE URINE 3+ (NEGATIVE); KETONES URINE 2+ (NEGATIVE); PH URINE 5.5 (4.5-8.0); PROTEIN URINE TRACE (NEGATIVE); SPECIFIC GRAVITY URINE 1.048 (1.005-1.030)
[2025-06-15 19:13] LABS: LEUKOCYTE ESTERASE URINE NEGATIVE (NEGATIVE); NITRITE URINE NEGATIVE (NEGATIVE); OCCULT BLOOD URINE 3+ (NEGATIVE); UROBILINOGEN URINE 0.2 E.U./dL (0.2-1.0)
[2025-06-15] MEDS ORDERED: DEXTROSE 50% WATER 50ML SYRINGE IV PRN (19:15)
[2025-06-15 19:19] LABS: *AMPHETAMINES SCREEN URINE NEGATIVE (NEGATIVE)
[2025-06-15 19:20] LABS: *BARBITURATES SCREEN URINE NEGATIVE (NEGATIVE); *BENZODIAZEPINES SCREEN URINE NEGATIVE (NEGATIVE); *COCAINE SCREEN URINE NEGATIVE (NEGATIVE); CANNABINOID URINE SCREEN PRESUMPTIVE POSITIVE (NEGATIVE); COLOR URINE STRAW (YELLOW); ECSTASY MDMA SCREEN URINE NEGATIVE (NEGATIVE); METHADONE URINE SCREEN NEGATIVE (NEGATIVE); OPIATES URINE SCREEN NEGATIVE (NEGATIVE); PHENCYCLIDINE URINE SCREEN NEGATIVE (NEGATIVE)
[2025-06-15 19:21] LABS: RBC URINE 0-2 /hpf (0-2); SQUAMOUS EPITHELIAL CELL URINE 1+ /lpf (RARE/1+); WBC URINE 0-2 /hpf (0-2)
[2025-06-15 19:22] LABS: BACTERIA URINE NONE SEEN; CLARITY URINE SL HAZY (CLEAR); MUCUS URINE TRACE /lpf (< = 2+); YEAST URINE 1+
[2025-06-15] MEDS: SODIUM CHLORIDE 0.45% 1,000 ML IV ONE (20:42)
[2025-06-15] MEDS: IOHEXOL-300 100 ML BOTTLE ONE (20:47)
[2025-06-15] MEDS: PANTOPRAZOLE SODIUM 40 MG/VIAL IV SCH (20:50)
[2025-06-15] MEDS: MAGNESIUM 1 G PREMIX 100 ML IV SCH (20:50)
[2025-06-15] MEDS ORDERED: INSULIN GLARGINE 100 UNITS/ML SUBCUT SCH (21:00)
[2025-06-15 21:32] LABS: CREATININE 0.9 mg/dL (0.6-1.0); UREA NITROGEN BLOOD 14 mg/dL (9-23)
[2025-06-15 21:34] LABS: PHOSPHORUS 3.2 mg/dL (2.5-4.9)
[2025-06-15 21:38] LABS: FOLIC ACID (FOLATE) SERUM 19.00 ng/mL (>5.38)
[2025-06-15 21:39] LABS: VITAMIN B12 SERUM 840 pg/mL (211-911)
[2025-06-15] MEDS: BLOOD SUGAR DIAGNOSTIC STRIP TEST SCH (21:43)
[2025-06-15] MEDS: KETOROLAC 30MG/ML VIAL IV NR (21:53)
[2025-06-15] MEDS: INSULIN LISPRO 100 UNITS/ML SUBCUT SCH (21:56)
[2025-06-15] MEDS: INSULIN GLARGINE 100 UNITS/ML SUBCUT SCH (21:57)
[2025-06-15 22:10] LABS: BG BASE EXCESS -7.4 mmol/L (-2.0-3.0); BG CARBOXYHEMOGLOBIN 1.3 % (0.5-1.5); BG DEOXYHEMOGLOBIN 2.3 % (0.0-5.0); BG FRACTION INSPIRED OXYGEN 21; BG HCO3 ACT 16.7 mmol/L (21.0-28.0); BG METHEMOGLOBIN 0.3 % (0.5-1.5); BG OXYGEN SATURATION 97.7 % (94.0-98.0); BG OXYHEMOGLOBIN 96.1 % (94.0-98.0); BG PCO2 29.0 mmHg (32.0-45.0); BG PH 7.379 (7.350-7.450); BG PO2 101.9 mmHg (83.0-108.0); BG SAMPLE SITE RIGHT RADIAL; BG TOTAL HEMOGLOBIN 9.3 g/dL (12.0-16.0); BG VENT MODE ROOM AIR
[2025-06-16] MEDS: SODIUM CHLORIDE 0.9% 1,000 ML IV SCH (00:31)
[2025-06-16 00:59] VITALS: BP 102/85; PULSE 68; RESP 16; TEMP 36.5848
[2025-06-16 05:55] VITALS: BP 108/52; PULSE 68; RESP 18; TEMP 36.6; O2SAT 98
[2025-06-16 06:46] LABS: BASOPHILS % 0.8 % (0.0-2.0); EOSINOPHILS % 0.8 % (0.0-5.0); HEMATOCRIT. 29.6 % (36.0-48.0); HEMOGLOBIN. 9.3 g/dL (12.0-16.0); LYMPHOCYTES % 38.8 % (20.0-50.0); MEAN PLATELET VOLUME 7.9 fl (7.4-10.4); MONOCYTES % 7.9 % (2.0-8.0); NEUTROPHILS % 51.7 % (40.0-76.0); PLATELET 380 x1000/uL (130-400); RED BLOOD CELL COUNT 3.80 mill/uL (4.2-5.4); RED CELL DISTRIBUTION WIDTH 17.2 % (11.6-14.6)
[2025-06-16 06:48] LABS: CREATININE 0.8 mg/dL (0.6-1.0); UREA NITROGEN BLOOD 11 mg/dL (9-23)
[2025-06-16 06:50] LABS: PHOSPHORUS 2.1 mg/dL (2.5-4.9)
[2025-06-16 06:52] LABS: T4 FREE 1.17 ng/dL (0.89-1.76)
[2025-06-16 07:12] LABS: ASPARTATE AMINOTRANSFERASE 12 IU/L (<34)
[2025-06-16 07:13] LABS: BILIRUBIN DIRECT 0.2 mg/dL (<=3.0); BILIRUBIN TOTAL 0.7 mg/dL (0.1-1.0); PROTEIN TOTAL 5.6 g/dL (6.0-8.3)
[2025-06-16 08:00] VITALS: BP 131/83; PULSE 84; RESP 17; TEMP 36.4; O2SAT 100
[2025-06-16] MEDS: POTASSIUM PHOSPHATE 20 MMOL in DEXT 5% WATER 243.3333 ML IV SCH (11:15)
[2025-06-16 12:00] VITALS: BP 101/63; PULSE 93; RESP 18; TEMP 36.7; O2SAT 100
[2025-06-16] MEDS ORDERED: ONDA-239 PO (15:41)
[2025-06-16] MEDS ORDERED: INSU100I28 SQ (15:41)
[2025-06-16] MEDS ORDERED: INSLIS SUBCUT (15:41)
[2025-06-16] MEDS ORDERED: METO-293 MT (15:41)
[2025-06-16] MEDS ORDERED: OMEP40CA20 MT (15:41)
[2025-06-16] MEDS ORDERED: KETOROLAC 10MG TABLET PO SCH (16:00)
[2025-06-16] MEDS ORDERED: ACETAMINOPHEN 1000MG/100ML 100 ML IV SCH (17:00)
== END 2025-06-16 15:42 | disposition left against medical advice (07) | DRG 241 ==
LOC: ER 12:26 → 8WST 16:05 → EDBEDREQ 16:08 → ENRESERV 22:19
PROVIDERS: ADMIT Internal Medicine; ATTEND Internal Medicine
DX: K29.70 Gastritis, unspecified, without bleeding (principal); N17.0 Acute kidney failure with tubular necrosis; E10.10 Type 1 diabetes mellitus with ketoacidosis without coma; D50.9 Iron deficiency anemia, unspecified; K21.9 Gastro-esophageal reflux disease without esophagitis; E10.43 Type 1 diabetes mellitus with diabetic autonomic (poly)neuropathy; K31.84 Gastroparesis; T38.3X6A Underdosing of insulin and oral hypoglycemic [antidiabetic] drugs, initial encounter; Z53.29 Procedure and treatment not carried out because of patient's decision for other reasons; Z79.4 Long term (current) use of insulin; Z91.148 Patient's other noncompliance with medication regimen for other reason; Z79.899 Other long term (current) drug therapy
CPT/HCPCS: 36415; 36600; 74177; 80048; 80076; 80305; 81003; 82010; 82375; 82550; 82607; 82728; 82746; 82805; 82962; 83036; 83540; 83550; 83605; 83735; 83880; 84100; 84439; 84443; 84484; 84702; 85025; 93005; 96361; 96374; 99285; A4606; J1171; J1815; J1885; J2060; J2470; J3475; J3490; J7030; J7060; Q9967; J0131